=== PATIENT | female | born 1955 | race Caucasian/White ===

== ENCOUNTER 2017-05-30 17:12 | Emergency (ER) | payer MEDICARE, MEDICAID ==
[~2017-05-30] VITALS: Ht 165.1 cm; Wt 82.5 kg
[~2017-05-30 17:12] MED LIST: ACYC400T PO; ALPR0.5T9 PO; AMLO10TA PO; CANA300T PO; DOCU-28 PO; GABA600T PO; INSU100I9 SQ; IRBE300T19 PO; KETO10TA2 PO; LANTUS SUBCUT; ONDA4TAB12 PO; POTA8TAB8 PO
[2017-05-30 17:55] LABS: BASOPHILS % (AUTO) 0.2 % (0-1); EOSINOPHILS # (AUTO) 0.3 X10'3 (0-0.9); EOSINOPHILS % (AUTO) 2.5 % (0-6); HEMATOCRIT 40.2 % (35.0-45.0); HEMOGLOBIN 13.7 g/dl (12.0-16.0); LYMPHOCYTES # (AUTO) 2.1 X10'3 (1.1-4.8); LYMPHOCYTES % (AUTO) 19.9 % (21-51); MEAN CORPUSCULAR HEMOGLOBIN 29.1 PG (27.0-31.0); MEAN CORPUSCULAR VOLUME 85.6 FL (78-98); MEAN PLATELET VOLUME 9.7 FL (7.4-10.4); MONOCYTES # (AUTO) 0.7 X10'3 (0-0.9); MONOCYTES % (AUTO) 6.5 % (2-12); NEUTROPHILS # (AUTO) 7.3 X10'3 (1.8-7.7); NEUTROPHILS % (AUTO) 70.9 % (42-75); PLATELET COUNT 170 X10'3 (140-440); RED BLOOD COUNT 4.69 X10'6 (4.20-5.60); WHITE BLOOD COUNT 10.3 X10'3 (4.5-11.0)
[2017-05-30 18:00] LABS: CLARITY,URINE CLEAR (Clear); COLOR,URINE YELLOW (Yellow); GLUCOSE, URINE >=1000 mg/dl (Neg); KETONES,URINE NEGATIVE (Neg); LEUKOCYTE ESTERASE ,URINE NEGATIVE (Neg); NITRITES, URINE NEGATIVE (Neg); OCCULT BLOOD,URINE TRACE-INTACT (Neg); PH,URINE 5.5 (4.8-8.0); PROTEIN,URINE TRACE mg/dl (Neg); UROBILINOGEN,URINE 0.2 E.U/dL (0.2-1.0)
[2017-05-30 18:01] LABS: UA COLLECTION TYPE CLN CATCH MIDSTREAM
[2017-05-30 18:08] LABS: BACTERIA,URINE 1+ /HPF (Neg); SQUAMOUS EPITHELIAL CELL,UR MODERATE /LPF (FEW)
[2017-05-30 18:09] LABS: RBC,URINE 0-2 /HPF (0-2); WBC,URINE 0-4 /HPF (0-4); YEAST FEW /HPF (NEGATIVE)
[2017-05-30 18:10] LABS: ALANINE AMINOTRANSFERASE 30 U/L (12-78); ALBUMIN 3.6 G/DL (3.4-5.0); ALBUMIN/GLOBULIN RATIO 0.9 (1.1-1.5); ALKALINE PHOSPHATASE 115 IU/L (46-116); ANION GAP 9 (8-16); ASPARTATE AMINO TRANSFERASE 21 U/L (10-37); BILIRUBIN,TOTAL 0.4 MG/DL (0.1-1.0); BLOOD UREA NITROGEN 15 MG/DL (7-18); CALCIUM 8.8 MG/DL (8.5-10.1); CHLORIDE 102 MMOL/L (99-107); CREATININE 0.88 MG/DL (0.40-0.90); GLUCOSE 383 MG/DL (70-104); POTASSIUM 3.9 MMOL/L (3.5-5.1); SODIUM 138 MMOL/L (135-145); TOTAL CARBON DIOXIDE 26.9 MMOL/L (24-32); TOTAL PROTEIN 7.6 G/DL (6.4-8.2); eGFR 65 ML/MIN
[2017-05-30 18:41] LABS: LIPASE < 50 U/L (73-393)
[2017-05-30] MEDS ORDERED: ondansetron 4mg rapidly disintigrating tab PO ONE (20:05)
[2017-05-30] MEDS ORDERED: ketorolac trometh inj. 60 MG/2 ML VIAL IM ONE (20:05)
[2017-05-30 21:00] VITALS: BP 128/88
[2017-05-30] MEDS ORDERED: ciprofloxacin 250mg tablet PO ONE (21:25)
[2017-05-30] MEDS ORDERED: metroNIDAZOLE 500mg tablet PO ONE (21:25)
[2017-05-30] MEDS ORDERED: METR500T4 PO (21:26)
[2017-05-30] MEDS ORDERED: ONDA8TAB9 PO (21:26)
[2017-05-30] MEDS ORDERED: HYDR-3965 PO (21:26)
[2017-05-30] MEDS ORDERED: CIPR-259 PO (21:26)
== END 2017-05-30 21:59 | disposition home or self-care (01) ==
LOC: ER 17:13
DX: K57.92 Diverticulitis of intestine, part unspecified, without perforation or abscess without bleeding (principal); I25.10 Atherosclerotic heart disease of native coronary artery without angina pectoris; I10 Essential (primary) hypertension; E11.9 Type 2 diabetes mellitus without complications; Z90.49 Acquired absence of other specified parts of digestive tract; Z90.710 Acquired absence of both cervix and uterus; Z56.0 Unemployment, unspecified; Z88.5 Allergy status to narcotic agent; Z79.4 Long term (current) use of insulin; Z79.899 Other long term (current) drug therapy
CPT/HCPCS: 36415; 71045; 74176; 80053; 81001; 82948; 83690; 85025; 85610; 96372; 99285; J1885; J3490

== ENCOUNTER 2017-06-08 16:22 | Inpatient (IN) | payer MEDICARE, MEDICAID ==
[~2017-06-08] VITALS: Ht 165.1 cm; Wt 81.3 kg
[~2017-06-08 16:22] MED LIST changes: +CIPR-259 PO; +HYDR-3965 PO; +METR500T4 PO; +ONDA8TAB9 PO; +etomidate 2mg/ml inj. ONE
[2017-06-08 17:24] LABS: BASOPHILS % (AUTO) 0.4 % (0-1); EOSINOPHILS # (AUTO) 0.2 X10'3 (0-0.9); EOSINOPHILS % (AUTO) 2.1 % (0-6); HEMATOCRIT 40.5 % (35.0-45.0); HEMOGLOBIN 13.8 g/dl (12.0-16.0); LYMPHOCYTES # (AUTO) 2.6 X10'3 (1.1-4.8); LYMPHOCYTES % (AUTO) 24.6 % (21-51); MEAN CORPUSCULAR HEMOGLOBIN 28.8 PG (27.0-31.0); MEAN CORPUSCULAR HGB CONC 34.1 % (33.0-36.5); MEAN CORPUSCULAR VOLUME 84.4 FL (78-98); MEAN PLATELET VOLUME 9.7 FL (7.4-10.4); MONOCYTES # (AUTO) 0.8 X10'3 (0-0.9); MONOCYTES % (AUTO) 7.9 % (2-12); NEUTROPHILS # (AUTO) 6.9 X10'3 (1.8-7.7); PLATELET COUNT 186 X10'3 (140-440); RED BLOOD COUNT 4.79 X10'6 (4.20-5.60); RED CELL DISTRIBUTION WIDTH 14.4 % (11.5-14.5); WHITE BLOOD COUNT 10.6 X10'3 (4.5-11.0)
[2017-06-08 17:46] LABS: ALANINE AMINOTRANSFERASE 36 U/L (12-78); ALBUMIN 3.7 G/DL (3.4-5.0); ALBUMIN/GLOBULIN RATIO 0.9 (1.1-1.5); ALKALINE PHOSPHATASE 103 IU/L (46-116); ANION GAP 9 (8-16); ASPARTATE AMINO TRANSFERASE 22 U/L (10-37); BILIRUBIN,TOTAL 0.6 MG/DL (0.1-1.0); BLOOD UREA NITROGEN 14 MG/DL (7-18); BUN/CREATININE RATIO 18.2 (6.6-38.0); CALCIUM 8.8 MG/DL (8.5-10.1); CHLORIDE 101 MMOL/L (99-107); CREATININE 0.77 MG/DL (0.40-0.90); ETHANOL < 0.010 GM/DL (0.0-0.010); GLUCOSE 351 MG/DL (70-104); MAGNESIUM 1.9 MG/DL (1.5-2.4); POTASSIUM 4.2 MMOL/L (3.5-5.1); SODIUM 138 MMOL/L (135-145); TOTAL CARBON DIOXIDE 28.1 MMOL/L (24-32); TOTAL PROTEIN 7.8 G/DL (6.4-8.2); eGFR 76 ML/MIN
[2017-06-08] MEDS ORDERED: aspirin 81mg tab.chew PO ONE (18:25)
[2017-06-08] MEDS ORDERED: mag hydrox/Alum hydrox/simeth 30ml oral suspension PO PRN (19:25)
[2017-06-08] MEDS: normal saline 1000ml 1,000 ML IV SCH (19:52)
[2017-06-08] MEDS ORDERED: losartan 50mg tablet PO SCH (21:00)
[2017-06-08] MEDS: potassium chloride 8mEq ER tablet PO SCH (21:00)
[2017-06-08] MEDS ORDERED: GABA600T2 PO ×2 (21:02)
[2017-06-08] MEDS ORDERED: ACYC400T PO (21:02)
[2017-06-08] MEDS ORDERED: DEXL60CA3 PO (21:03)
[2017-06-08] MEDS: docusate sod 100mg capsule PO SCH (21:23)
[2017-06-08] MEDS: ALPRAZolam 0.5mg tablet PO SCH (21:23)
[2017-06-08] MEDS: gabapentin 300mg capsule PO SCH (21:24)
[2017-06-08] MEDS: ciprofloxacin 500MG tablet PO SCH (21:25)
[2017-06-08] MEDS: heparin, porcine 5000 units/ml vial SQ SCH (21:27)
[2017-06-08] MEDS: insulin glargine (Lantus) pen - multi-dose SQ SCH (22:40)
[2017-06-08] MEDS: metroNIDAZOLE 500mg tablet PO SCH (23:47)
[2017-06-09 00:28] LABS: CLARITY,URINE CLEAR (Clear); COLOR,URINE YELLOW (Yellow); GLUCOSE, URINE >=1000 mg/dl (Neg); KETONES,URINE NEGATIVE (Neg); LEUKOCYTE ESTERASE ,URINE NEGATIVE (Neg); NITRITES, URINE NEGATIVE (Neg); OCCULT BLOOD,URINE NEGATIVE (Neg); PROTEIN,URINE NEGATIVE (Neg); UROBILINOGEN,URINE 0.2 E.U/dL (0.2-1.0)
[2017-06-09 00:29] LABS: UA COLLECTION TYPE CLN CATCH MIDSTREAM
[2017-06-09 00:34] LABS: URINE AMPHETAMINE SCREEN NEGATIVE (Neg); URINE BARBITUATE SCREEN NEGATIVE (Neg); URINE BENZODIAZEPINES SCREEN NEGATIVE (Neg); URINE CANNABINOID SCREEN NEGATIVE (Neg); URINE COCAINE SCREEN NEGATIVE (Neg); URINE METHADONE SCREEN NEGATIVE (Neg); URINE OPIATE SCREEN NEGATIVE (Neg); URINE PHENCYCLIDINE SCREEN NEGATIVE (Neg)
[2017-06-09 00:41] LABS: WBC,URINE 0-4 /HPF (0-4)
[2017-06-09 00:42] LABS: BACTERIA,URINE NONE SEEN /HPF (Neg); RBC,URINE NONE SEEN /HPF (0-2); SQUAMOUS EPITHELIAL CELL,UR FEW /LPF (FEW); YEAST FEW /HPF (NEGATIVE)
[2017-06-09 04:41] LABS: BASOPHILS % (AUTO) 0.5 % (0-1); EOSINOPHILS # (AUTO) 0.3 X10'3 (0-0.9); EOSINOPHILS % (AUTO) 2.9 % (0-6); HEMATOCRIT 37.2 % (35.0-45.0); HEMOGLOBIN 12.9 g/dl (12.0-16.0); LYMPHOCYTES # (AUTO) 3.3 X10'3 (1.1-4.8); LYMPHOCYTES % (AUTO) 35.5 % (21-51); MEAN CORPUSCULAR HEMOGLOBIN 29.2 PG (27.0-31.0); MEAN CORPUSCULAR HGB CONC 34.7 % (33.0-36.5); MEAN CORPUSCULAR VOLUME 84.1 FL (78-98); MEAN PLATELET VOLUME 9.4 FL (7.4-10.4); MONOCYTES # (AUTO) 0.7 X10'3 (0-0.9); MONOCYTES % (AUTO) 7.7 % (2-12); NEUTROPHILS # (AUTO) 4.9 X10'3 (1.8-7.7); NEUTROPHILS % (AUTO) 53.4 % (42-75); PLATELET COUNT 156 X10'3 (140-440); RED BLOOD COUNT 4.42 X10'6 (4.20-5.60); RED CELL DISTRIBUTION WIDTH 14.6 % (11.5-14.5); WHITE BLOOD COUNT 9.2 X10'3 (4.5-11.0)
[2017-06-09 04:59] LABS: ALANINE AMINOTRANSFERASE 30 U/L (12-78); ALBUMIN 3.2 G/DL (3.4-5.0); ALBUMIN/GLOBULIN RATIO 0.8 (1.1-1.5); ALKALINE PHOSPHATASE 94 IU/L (46-116); ANION GAP 6 (8-16); ASPARTATE AMINO TRANSFERASE 23 U/L (10-37); BILIRUBIN,TOTAL 0.5 MG/DL (0.1-1.0); BLOOD UREA NITROGEN 11 MG/DL (7-18); BUN/CREATININE RATIO 17.5 (6.6-38.0); CALCIUM 8.7 MG/DL (8.5-10.1); CHLORIDE 105 MMOL/L (99-107); CREATININE 0.63 MG/DL (0.40-0.90); GLUCOSE 232 MG/DL (70-104); POTASSIUM 3.9 MMOL/L (3.5-5.1); SODIUM 141 MMOL/L (135-145); TOTAL CARBON DIOXIDE 30.5 MMOL/L (24-32); TOTAL PROTEIN 7.1 G/DL (6.4-8.2); eGFR > 90 ML/MIN
[2017-06-09] MEDS ORDERED: nitroGLYCERIN 1gm ointment UD TP PRN (05:15)
[2017-06-09] MEDS ORDERED: HYDROmorphone 2mg/ml vial IV PRN (05:15)
[2017-06-09] MEDS: HYDROcodone/acetaminophen 5mg/325mg tablet PO PRN ×2 (05:26→13:44)
[2017-06-09] MEDS: ondansetron/PF 4mg/2ml inj IV PRN ×2 (05:30→20:48)
[2017-06-09] MEDS ORDERED: amLODIPine 5mg tablet PO SCH (08:00)
[2017-06-09] MEDS: docusate sod 100mg capsule PO SCH ×2 (08:00→20:48)
[2017-06-09 08:48] LABS: HEMOGLOBIN A1C 10.6 % (4.5-6.2)
[2017-06-09] MEDS ORDERED: glucagon, human recombinant 1mg kit SUBCUT PRN (08:50)
[2017-06-09] MEDS ORDERED: dextrose ORAL solution 15 GM/59 ML bottle PO PRN ×2 (08:50)
[2017-06-09] MEDS ORDERED: MESSAGE TO PHARMACY PO ONE (08:50)
[2017-06-09] MEDS ORDERED: dextrose 50%-water 50ml dispensing syringe IV PRN ×2 (08:50)
[2017-06-09] MEDS: gabapentin 300mg capsule PO SCH ×2 (09:30→20:47)
[2017-06-09] MEDS: ciprofloxacin 500MG tablet PO SCH (09:30)
[2017-06-09] MEDS: normal saline 1000ml 1,000 ML IV SCH ×2 (09:30→15:25)
[2017-06-09] MEDS: metroNIDAZOLE 500mg tablet PO SCH ×2 (09:30→16:29)
[2017-06-09] MEDS: heparin, porcine 5000 units/ml vial SQ SCH ×2 (09:32→20:49)
[2017-06-09] MEDS ORDERED: ketorolac tromethamine 15mg/ml inj. IV ONE (09:50)
[2017-06-09] MEDS: insulin Lispro (HumaLOG) vial - multi-dose SQ SCH ×2 (14:06→19:53)
[2017-06-09] MEDS ORDERED: aminophylline 250mg/10ml inj. IV PRN (15:00)
[2017-06-09] MEDS ORDERED: metoprolol tartrate 1mg/ml inj IV PRN (15:00)
[2017-06-09] MEDS ORDERED: nitroGLYCERIN 0.4mg SUBLingual tab SL PRN (15:00)
[2017-06-09] MEDS ORDERED: regadenoson 0.4mg/5ml syringe IV ONE (15:00)
[2017-06-09 17:00] VITALS: BP 104/59
[2017-06-09] MEDS ORDERED: HYDROmorphone inj. 0.5 MG/0.5 ML DISP.SYRIN IV PRN (18:06)
[2017-06-09 19:00] VITALS: BP 123/69
[2017-06-09 20:00] VITALS: BP 104/59
[2017-06-09] MEDS: potassium chloride 8mEq ER tablet PO SCH (20:47)
[2017-06-09] MEDS: losartan 50mg tablet PO SCH (20:48)
[2017-06-09] MEDS: ALPRAZolam 0.5mg tablet PO SCH (20:48)
[2017-06-09] MEDS: ciprofloxacin 250mg tablet PO SCH (20:48)
[2017-06-09] MEDS: lactobacillus rhamnosus 10,000 MMU CELLS/CAPSULE PO SCH (20:49)
[2017-06-09] MEDS ORDERED: insulin glargine (Lantus) pen - multi-dose SQ SCH (21:00)
[2017-06-09] MEDS: insulin glargine (Lantus) pen - multi-dose SQ SCH (21:56)
[2017-06-09 22:20] VITALS: BP 104/59
[2017-06-09 23:00] VITALS: BP 122/71
[2017-06-10] VITALS (20 sets, daily range): BP systolic 105–146; BP diastolic 54–81
[2017-06-10] MEDS: normal saline 1000ml 1,000 ML IV SCH ×3 (01:47→21:47)
[2017-06-10] MEDS ORDERED: regadenoson 0.4mg/5ml syringe IV ONE ×2 (06:20→09:15)
[2017-06-10 06:38] LABS: BASOPHILS # (AUTO) 0.1 X10'3 (0-0.2); BASOPHILS % (AUTO) 0.8 % (0-1); EOSINOPHILS # (AUTO) 0.2 X10'3 (0-0.9); EOSINOPHILS % (AUTO) 2.5 % (0-6); HEMATOCRIT 34.5 % (35.0-45.0); HEMOGLOBIN 12.1 g/dl (12.0-16.0); LYMPHOCYTES # (AUTO) 1.9 X10'3 (1.1-4.8); LYMPHOCYTES % (AUTO) 22.9 % (21-51); MEAN CORPUSCULAR HEMOGLOBIN 29.6 PG (27.0-31.0); MEAN CORPUSCULAR HGB CONC 35.2 % (33.0-36.5); MEAN PLATELET VOLUME 9.7 FL (7.4-10.4); MONOCYTES # (AUTO) 0.7 X10'3 (0-0.9); MONOCYTES % (AUTO) 8.4 % (2-12); NEUTROPHILS # (AUTO) 5.5 X10'3 (1.8-7.7); NEUTROPHILS % (AUTO) 65.4 % (42-75); PLATELET COUNT 137 X10'3 (140-440); RED BLOOD COUNT 4.11 X10'6 (4.20-5.60); RED CELL DISTRIBUTION WIDTH 14.6 % (11.5-14.5); WHITE BLOOD COUNT 8.4 X10'3 (4.5-11.0)
[2017-06-10 06:58] LABS: ALANINE AMINOTRANSFERASE 112 U/L (12-78); ALBUMIN 2.9 G/DL (3.4-5.0); ALBUMIN/GLOBULIN RATIO 0.8 (1.1-1.5); ALKALINE PHOSPHATASE 126 IU/L (46-116); ANION GAP 8 (8-16); ASPARTATE AMINO TRANSFERASE 137 U/L (10-37); BILIRUBIN,TOTAL 0.4 MG/DL (0.1-1.0); BLOOD UREA NITROGEN 17 MG/DL (7-18); BUN/CREATININE RATIO 25.8 (6.6-38.0); CALCIUM 8.3 MG/DL (8.5-10.1); CHLORIDE 104 MMOL/L (99-107); CREATININE 0.66 MG/DL (0.40-0.90); GLUCOSE 296 MG/DL (70-104); POTASSIUM 4.3 MMOL/L (3.5-5.1); SODIUM 138 MMOL/L (135-145); TOTAL CARBON DIOXIDE 26.4 MMOL/L (24-32); TOTAL PROTEIN 6.5 G/DL (6.4-8.2); eGFR > 90 ML/MIN
[2017-06-10] MEDS ORDERED: aminophylline inj. 10 ML IV ONE (09:15)
[2017-06-10] MEDS ORDERED: magnesium 4gm in 100ml NS 100 ML IV PRN (10:45)
[2017-06-10] MEDS ORDERED: magnesium Cl slow-release 64mg tablet PO PRN (10:45)
[2017-06-10] MEDS ORDERED: potassium Cl 40MEQ/NS 500ml 500 ML IV PRN ×2 (10:45)
[2017-06-10] MEDS ORDERED: magnesium 2GM in 50ml NS 50 ML IV PRN (10:45)
[2017-06-10] MEDS ORDERED: potassium Cl 20 mEq SR tablet PO PRN ×2 (10:45)
[2017-06-10] MEDS: carVEDilol 3.125mg tablet PO SCH ×2 (13:51→20:00)
[2017-06-10] MEDS: gabapentin 300mg capsule PO SCH ×2 (13:51→20:00)
[2017-06-10] MEDS: ciprofloxacin 250mg tablet PO SCH ×2 (13:51→20:00)
[2017-06-10] MEDS: metroNIDAZOLE 500mg tablet PO SCH ×4 (13:51→23:18)
[2017-06-10] MEDS: lactobacillus rhamnosus 10,000 MMU CELLS/CAPSULE PO SCH ×2 (13:51→20:00)
[2017-06-10] MEDS: docusate sod 100mg capsule PO SCH ×2 (13:51→20:00)
[2017-06-10] MEDS: heparin, porcine 5000 units/ml vial SQ SCH ×2 (13:52→20:00)
[2017-06-10] MEDS: insulin Lispro (HumaLOG) vial - multi-dose SQ SCH ×2 (13:57→18:17)
[2017-06-10] MEDS: ondansetron/PF 4mg/2ml inj IV PRN (16:00)
[2017-06-10] MEDS: HYDROcodone/acetaminophen 5mg/325mg tablet PO PRN (16:00)
[2017-06-10] MEDS: insulin glargine (Lantus) pen - multi-dose SQ SCH (20:00)
[2017-06-10] MEDS: losartan 50mg tablet PO SCH (21:03)
[2017-06-10] MEDS: ALPRAZolam 0.5mg tablet PO SCH (21:03)
[2017-06-10] MEDS: potassium chloride 8mEq ER tablet PO SCH (21:05)
[2017-06-11] VITALS (7 sets, daily range): BP systolic 105–147; BP diastolic 53–82
[2017-06-11] MEDS: HYDROcodone/acetaminophen 5mg/325mg tablet PO PRN ×2 (05:15→07:08)
[2017-06-11 06:14] LABS: BASOPHILS # (AUTO) 0.1 X10'3 (0-0.2); BASOPHILS % (AUTO) 0.8 % (0-1); EOSINOPHILS # (AUTO) 0.2 X10'3 (0-0.9); EOSINOPHILS % (AUTO) 3.3 % (0-6); HEMATOCRIT 34.7 % (35.0-45.0); LYMPHOCYTES # (AUTO) 2.7 X10'3 (1.1-4.8); LYMPHOCYTES % (AUTO) 36.2 % (21-51); MEAN CORPUSCULAR HEMOGLOBIN 29.4 PG (27.0-31.0); MEAN CORPUSCULAR HGB CONC 34.6 % (33.0-36.5); MEAN CORPUSCULAR VOLUME 84.9 FL (78-98); MEAN PLATELET VOLUME 10.4 FL (7.4-10.4); MONOCYTES # (AUTO) 0.7 X10'3 (0-0.9); MONOCYTES % (AUTO) 9.5 % (2-12); NEUTROPHILS # (AUTO) 3.8 X10'3 (1.8-7.7); NEUTROPHILS % (AUTO) 50.2 % (42-75); PLATELET COUNT 136 X10'3 (140-440); RED BLOOD COUNT 4.08 X10'6 (4.20-5.60); RED CELL DISTRIBUTION WIDTH 14.7 % (11.5-14.5); WHITE BLOOD COUNT 7.5 X10'3 (4.5-11.0)
[2017-06-11 06:55] LABS: ALANINE AMINOTRANSFERASE 73 U/L (12-78); ALBUMIN 2.9 G/DL (3.4-5.0); ALBUMIN/GLOBULIN RATIO 0.8 (1.1-1.5); ALKALINE PHOSPHATASE 115 IU/L (46-116); ANION GAP 11 (8-16); ASPARTATE AMINO TRANSFERASE 44 U/L (10-37); BILIRUBIN,TOTAL 0.3 MG/DL (0.1-1.0); BLOOD UREA NITROGEN 16 MG/DL (7-18); BUN/CREATININE RATIO 23.9 (6.6-38.0); CALCIUM 8.3 MG/DL (8.5-10.1); CHLORIDE 104 MMOL/L (99-107); CREATININE 0.67 MG/DL (0.40-0.90); GLUCOSE 347 MG/DL (70-104); POTASSIUM 3.9 MMOL/L (3.5-5.1); SODIUM 140 MMOL/L (135-145); TOTAL CARBON DIOXIDE 25.1 MMOL/L (24-32); TOTAL PROTEIN 6.6 G/DL (6.4-8.2); eGFR 89 ML/MIN
[2017-06-11] MEDS: normal saline 1000ml 1,000 ML IV SCH ×2 (07:08→17:25)
[2017-06-11] MEDS: carVEDilol 3.125mg tablet PO SCH ×2 (07:49→21:21)
[2017-06-11] MEDS: gabapentin 300mg capsule PO SCH ×2 (07:49→21:27)
[2017-06-11] MEDS: metroNIDAZOLE 500mg tablet PO SCH ×3 (07:49→23:35)
[2017-06-11] MEDS: lactobacillus rhamnosus 10,000 MMU CELLS/CAPSULE PO SCH ×2 (07:50→21:20)
[2017-06-11] MEDS: ciprofloxacin 250mg tablet PO SCH ×2 (07:50→21:19)
[2017-06-11] MEDS: docusate sod 100mg capsule PO SCH ×2 (07:50→21:19)
[2017-06-11] MEDS: heparin, porcine 5000 units/ml vial SQ SCH ×2 (07:52→21:19)
[2017-06-11] MEDS: insulin glargine (Lantus) pen - multi-dose SQ SCH ×2 (08:28→20:00)
[2017-06-11] MEDS: magnesium hydroxide 30ml (MOM) UD suspension PO PRN (12:36)
[2017-06-11] MEDS: insulin Lispro (HumaLOG) vial - multi-dose SQ SCH ×2 (13:11→19:00)
[2017-06-11] MEDS: potassium chloride 8mEq ER tablet PO SCH (21:20)
[2017-06-11] MEDS: ALPRAZolam 0.5mg tablet PO SCH (21:20)
[2017-06-11] MEDS: losartan 50mg tablet PO SCH (21:21)
[2017-06-12] VITALS (15 sets, daily range): BP systolic 126–170; BP diastolic 60–82
[2017-06-12] MEDS: normal saline 1000ml 1,000 ML IV SCH ×3 (03:25→23:55)
[2017-06-12] MEDS: traMADol 50MG tablet PO PRN (03:28)
[2017-06-12 05:47] LABS: BASOPHILS # (AUTO) 0.1 X10'3 (0-0.2); BASOPHILS % (AUTO) 0.6 % (0-1); EOSINOPHILS # (AUTO) 0.2 X10'3 (0-0.9); EOSINOPHILS % (AUTO) 2.4 % (0-6); HEMOGLOBIN 12.5 g/dl (12.0-16.0); LYMPHOCYTES # (AUTO) 2.4 X10'3 (1.1-4.8); MEAN CORPUSCULAR HEMOGLOBIN 29.7 PG (27.0-31.0); MEAN CORPUSCULAR HGB CONC 34.6 % (33.0-36.5); MEAN CORPUSCULAR VOLUME 85.8 FL (78-98); MEAN PLATELET VOLUME 10.1 FL (7.4-10.4); MONOCYTES # (AUTO) 0.8 X10'3 (0-0.9); MONOCYTES % (AUTO) 8.2 % (2-12); NEUTROPHILS # (AUTO) 6.2 X10'3 (1.8-7.7); NEUTROPHILS % (AUTO) 63.8 % (42-75); PLATELET COUNT 152 X10'3 (140-440); RED CELL DISTRIBUTION WIDTH 14.4 % (11.5-14.5); WHITE BLOOD COUNT 9.8 X10'3 (4.5-11.0)
[2017-06-12 06:01] LABS: ALANINE AMINOTRANSFERASE 70 U/L (12-78); ALBUMIN 3.2 G/DL (3.4-5.0); ALBUMIN/GLOBULIN RATIO 0.9 (1.1-1.5); ALKALINE PHOSPHATASE 111 IU/L (46-116); ANION GAP 9 (8-16); ASPARTATE AMINO TRANSFERASE 40 U/L (10-37); BILIRUBIN,TOTAL 0.4 MG/DL (0.1-1.0); BLOOD UREA NITROGEN 14 MG/DL (7-18); BUN/CREATININE RATIO 23.7 (6.6-38.0); CALCIUM 8.5 MG/DL (8.5-10.1); CHLORIDE 102 MMOL/L (99-107); CREATININE 0.59 MG/DL (0.40-0.90); GLUCOSE 299 MG/DL (70-104); MAGNESIUM 2.1 MG/DL (1.5-2.4); POTASSIUM 4.2 MMOL/L (3.5-5.1); SODIUM 137 MMOL/L (135-145); TOTAL CARBON DIOXIDE 26.4 MMOL/L (24-32); TOTAL PROTEIN 6.8 G/DL (6.4-8.2); eGFR > 90 ML/MIN
[2017-06-12] MEDS: ondansetron/PF 4mg/2ml inj IV PRN ×2 (07:17→21:23)
[2017-06-12] MEDS: insulin glargine (Lantus) pen - multi-dose SQ SCH ×2 (07:39→20:00)
[2017-06-12] MEDS: ciprofloxacin 250mg tablet PO SCH (07:52)
[2017-06-12] MEDS: carVEDilol 3.125mg tablet PO SCH ×2 (07:53→19:19)
[2017-06-12] MEDS: lactobacillus rhamnosus 10,000 MMU CELLS/CAPSULE PO SCH ×2 (07:53→19:19)
[2017-06-12] MEDS: docusate sod 100mg capsule PO SCH ×2 (07:53→20:00)
[2017-06-12] MEDS: gabapentin 300mg capsule PO SCH ×2 (07:54→19:19)
[2017-06-12] MEDS: metroNIDAZOLE 500mg tablet PO SCH (07:54)
[2017-06-12] MEDS: heparin, porcine 5000 units/ml vial SQ SCH (07:54)
[2017-06-12] MEDS ORDERED: fentaNYL/PF 50MCG/1 ML 2ML syringe ONE (10:25)
[2017-06-12] MEDS ORDERED: heparin 1,000unit/ml 10ml vial 10 ML ONE (10:25)
[2017-06-12] MEDS ORDERED: LIDOcaine 1%/PF (10mg/ml) 5ml vial ONE (10:25)
[2017-06-12] MEDS ORDERED: midazolam 2 mg/2 ml injection ONE ×2 (10:25→11:36)
[2017-06-12] MEDS ORDERED: iohexol 350 MG/ML 50ML vial IV ONE (10:25)
[2017-06-12] MEDS ORDERED: nitroGLYCERIN-Tridil 50MG/D5W 250 ML IV ONE (10:25)
[2017-06-12] MEDS ORDERED: iohexol 350MG/ML 100ml bottle IV ONE ×3 (10:26→11:59)
[2017-06-12] MEDS: LORazepam 0.5 MG tablet PO PRN (10:38)
[2017-06-12] MEDS ORDERED: heparin 1,000 UNITS/NS 500ml 500 ML ONE (12:14)
[2017-06-12] MEDS ORDERED: tirofiban 5mg in NS 100mL 100 ML IV ONE (12:31)
[2017-06-12] MEDS ORDERED: clopidogrel 300mg tablet ONE (12:53)
[2017-06-12 13:21] LABS: ISTAT HGB ART 10.9 g/dl (12.0-16.0); ISTAT Hct ART 32 %PCV (35-48); ISTAT O2 SATURATION ARTERIAL 98 % (95-98); ISTAT SOURCE ART
[2017-06-12 13:21] LABS: ISTAT Hct MIX 32 %PCV (35-48); ISTAT O2 SATURATION MIX VENOUS 61 % (60-80); ISTAT SOURCE MIX
[2017-06-12] MEDS ORDERED: heparin 10,000 units/1 ML INJ IV PRN (14:00)
[2017-06-12] MEDS ORDERED: magnesium hydroxide 30ml (MOM) UD suspension PO PRN (14:00)
[2017-06-12] MEDS ORDERED: aspirin 325mg tablet PO ONE (14:00)
[2017-06-12] MEDS ORDERED: acetaminophen 325mg tablet PO PRN (14:00)
[2017-06-12] MEDS: tirofiban 5mg in NS 100mL 100 ML IV SCH ×3 (14:00→20:50)
[2017-06-12] MEDS ORDERED: proCHLORperazine 10 MG/2 ml inj IV PRN (14:00)
[2017-06-12 14:50] LABS: CHOL/HDL RATIO 4.3 (0.00-4.99); CHOLESTEROL 154 MG/DL (0-200); HDL CHOLESTEROL 36 MG/DL (35-60); LDL CHOLESTEROL 96 MG/DL (50-100); TRIGLYCERIDES 76 MG/DL (20-135)
[2017-06-12] MEDS: OXAZEpam 15mg capsule PO PRN ×2 (15:52→21:27)
[2017-06-12] MEDS: insulin Lispro (HumaLOG) vial - multi-dose SQ SCH ×2 (17:13→19:25)
[2017-06-12] MEDS: losartan 50mg tablet PO SCH (20:52)
[2017-06-12] MEDS: potassium chloride 8mEq ER tablet PO SCH (20:52)
[2017-06-12] MEDS: ALPRAZolam 0.5mg tablet PO SCH (20:52)
[2017-06-13] VITALS (27 sets, daily range): BP systolic 90–159; BP diastolic 48–72
[2017-06-13] MEDS: tirofiban 5mg in NS 100mL 100 ML IV SCH ×3 (02:00→23:25)
[2017-06-13] MEDS: traMADol 50MG tablet PO PRN ×2 (02:41→13:23)
[2017-06-13] MEDS: LORazepam 0.5 MG tablet PO PRN (03:08)
[2017-06-13 05:49] LABS: BASOPHILS % (AUTO) 0.3 % (0-1); EOSINOPHILS # (AUTO) 0.4 X10'3 (0-0.9); EOSINOPHILS % (AUTO) 2.4 % (0-6); HEMOGLOBIN 7.5 g/dl (12.0-16.0); LYMPHOCYTES # (AUTO) 1.4 X10'3 (1.1-4.8); LYMPHOCYTES % (AUTO) 8.6 % (21-51); MEAN CORPUSCULAR HEMOGLOBIN 29.9 PG (27.0-31.0); MEAN CORPUSCULAR HGB CONC 35.3 % (33.0-36.5); MEAN CORPUSCULAR VOLUME 84.8 FL (78-98); MEAN PLATELET VOLUME 10.1 FL (7.4-10.4); MONOCYTES # (AUTO) 1.5 X10'3 (0-0.9); MONOCYTES % (AUTO) 9.1 % (2-12); NEUTROPHILS # (AUTO) 13.4 X10'3 (1.8-7.7); NEUTROPHILS % (AUTO) 79.6 % (42-75); PLATELET COUNT 172 X10'3 (140-440); RED BLOOD COUNT 2.51 X10'6 (4.20-5.60); RED CELL DISTRIBUTION WIDTH 14.7 % (11.5-14.5); WHITE BLOOD COUNT 16.8 X10'3 (4.5-11.0)
[2017-06-13 05:56] LABS: HEMATOCRIT 21.3 % (35.0-45.0)
[2017-06-13 06:13] LABS: ALANINE AMINOTRANSFERASE 74 U/L (12-78); ALBUMIN 2.8 G/DL (3.4-5.0); ALBUMIN/GLOBULIN RATIO 0.7 (1.1-1.5); ALKALINE PHOSPHATASE 130 IU/L (46-116); ANION GAP 7 (8-16); ASPARTATE AMINO TRANSFERASE 57 U/L (10-37); BILIRUBIN,TOTAL 0.5 MG/DL (0.1-1.0); BLOOD UREA NITROGEN 12 MG/DL (7-18); BUN/CREATININE RATIO 21.4 (6.6-38.0); CALCIUM 7.8 MG/DL (8.5-10.1); CHLORIDE 105 MMOL/L (99-107); CHOL/HDL RATIO 4.1 (0.00-4.99); CHOLESTEROL 154 MG/DL (0-200); CREATININE 0.56 MG/DL (0.40-0.90); GLUCOSE 120 MG/DL (70-104); HDL CHOLESTEROL 38 MG/DL (35-60); LDL CHOLESTEROL 95 MG/DL (50-100); MAGNESIUM 1.9 MG/DL (1.5-2.4); POTASSIUM 4.1 MMOL/L (3.5-5.1); SODIUM 139 MMOL/L (135-145); TOTAL CARBON DIOXIDE 26.9 MMOL/L (24-32); TOTAL PROTEIN 6.6 G/DL (6.4-8.2); TRIGLYCERIDES 99 MG/DL (20-135); eGFR > 90 ML/MIN
[2017-06-13] MEDS ORDERED: fentaNYL/PF 50MCG/1 ML 2ML syringe ONE (06:14)
[2017-06-13] MEDS ORDERED: iohexol 350 MG/1 ML 200ml bottle ONE (06:14)
[2017-06-13] MEDS ORDERED: nitroGLYCERIN-Tridil 50MG/D5W 250 ML IV ONE (06:14)
[2017-06-13] MEDS ORDERED: midazolam 2 mg/2 ml injection ONE (06:14)
[2017-06-13] MEDS ORDERED: heparin 1,000unit/ml 10ml vial 10 ML ONE (06:14)
[2017-06-13] MEDS ORDERED: LIDOcaine 1%/PF (10mg/ml) 5ml vial ONE (06:14)
[2017-06-13 06:57] LABS: HEMATOCRIT 31.3 % (35.0-45.0); HEMOGLOBIN 10.7 g/dl (12.0-16.0); MEAN CORPUSCULAR HEMOGLOBIN 29.4 PG (27.0-31.0); MEAN CORPUSCULAR HGB CONC 34.3 % (33.0-36.5); MEAN CORPUSCULAR VOLUME 85.7 FL (78-98); MEAN PLATELET VOLUME 10.4 FL (7.4-10.4); PLATELET COUNT 133 X10'3 (140-440); RED BLOOD COUNT 3.65 X10'6 (4.20-5.60); RED CELL DISTRIBUTION WIDTH 14.8 % (11.5-14.5); WHITE BLOOD COUNT 11.2 X10'3 (4.5-11.0)
[2017-06-13] MEDS ORDERED: IOHEXOL 350 MG/ML 150 ML injection IV ONE (07:53)
[2017-06-13] MEDS: docusate sod 100mg capsule PO SCH ×2 (08:00→19:16)
[2017-06-13] MEDS ORDERED: clopidogrel 300mg tablet ONE (08:02)
[2017-06-13] MEDS: ondansetron/PF 4mg/2ml inj IV PRN (09:20)
[2017-06-13] MEDS: clopidogrel 75mg tablet PO SCH (10:53)
[2017-06-13] MEDS: lactobacillus rhamnosus 10,000 MMU CELLS/CAPSULE PO SCH ×2 (10:54→19:13)
[2017-06-13] MEDS: aspirin 325mg tablet PO SCH (10:54)
[2017-06-13] MEDS: carVEDilol 3.125mg tablet PO SCH ×2 (10:54→20:00)
[2017-06-13] MEDS: gabapentin 300mg capsule PO SCH ×2 (10:55→19:13)
[2017-06-13] MEDS: insulin glargine (Lantus) pen - multi-dose SQ SCH ×2 (11:09→20:00)
[2017-06-13] MEDS: OXAZEpam 15mg capsule PO PRN (13:23)
[2017-06-13] MEDS: insulin Lispro (HumaLOG) vial - multi-dose SQ SCH ×2 (14:05→19:07)
[2017-06-13 14:26] LABS: ISTAT HGB ART 10.5 g/dl (12.0-16.0); ISTAT Hct ART 31 %PCV (35-48); ISTAT O2 SATURATION ARTERIAL 94 % (95-98); ISTAT SOURCE ART
[2017-06-13] MEDS: acetaminophen 325mg tablet PO PRN (17:28)
[2017-06-13] MEDS: losartan 50mg tablet PO SCH (20:25)
[2017-06-13] MEDS: potassium chloride 8mEq ER tablet PO SCH (20:52)
[2017-06-13] MEDS: atorvastatin 20mg tablet PO SCH (20:52)
[2017-06-13] MEDS: ALPRAZolam 0.5mg tablet PO SCH (21:00)
[2017-06-14] VITALS (19 sets, daily range): BP systolic 82–135; BP diastolic 43–64
[2017-06-14 03:15] LABS: BASOPHILS # (AUTO) 0.1 X10'3 (0-0.2); BASOPHILS % (AUTO) 1.5 % (0-1); EOSINOPHILS % (AUTO) 0.3 % (0-6); HEMATOCRIT 26.2 % (35.0-45.0); HEMOGLOBIN 9.2 g/dl (12.0-16.0); LYMPHOCYTES % (AUTO) 10.3 % (21-51); MEAN CORPUSCULAR HEMOGLOBIN 29.9 PG (27.0-31.0); MEAN CORPUSCULAR HGB CONC 35.1 % (33.0-36.5); MEAN CORPUSCULAR VOLUME 85.1 FL (78-98); MEAN PLATELET VOLUME 10.4 FL (7.4-10.4); MONOCYTES # (AUTO) 1.7 X10'3 (0-0.9); MONOCYTES % (AUTO) 17.9 % (2-12); NEUTROPHILS # (AUTO) 6.9 X10'3 (1.8-7.7); PLATELET COUNT 105 X10'3 (140-440); RED BLOOD COUNT 3.08 X10'6 (4.20-5.60); RED CELL DISTRIBUTION WIDTH 14.1 % (11.5-14.5); WHITE BLOOD COUNT 9.7 X10'3 (4.5-11.0)
[2017-06-14] MEDS: normal saline 1000ml 1,000 ML IV SCH ×3 (03:39→16:10)
[2017-06-14 03:48] LABS: ALBUMIN 2.2 G/DL (3.4-5.0); ANION GAP 7 (8-16); BLOOD UREA NITROGEN 16 MG/DL (7-18); BUN/CREATININE RATIO 23.2 (6.6-38.0); CALCIUM 6.7 MG/DL (8.5-10.1); CHLORIDE 106 MMOL/L (99-107); CHOLESTEROL 114 MG/DL (0-200); CREATININE 0.69 MG/DL (0.40-0.90); GLUCOSE 167 MG/DL (70-104); HDL CHOLESTEROL 23 MG/DL (35-60); LDL CHOLESTEROL 68 MG/DL (50-100); MAGNESIUM 1.7 MG/DL (1.5-2.4); POTASSIUM 3.7 MMOL/L (3.5-5.1); SODIUM 138 MMOL/L (135-145); TOTAL CARBON DIOXIDE 24.6 MMOL/L (24-32); TRIGLYCERIDES 104 MG/DL (20-135); eGFR 86 ML/MIN
[2017-06-14] MEDS: traMADol 50MG tablet PO PRN (04:23)
[2017-06-14] MEDS: tirofiban 5mg in NS 100mL 100 ML IV SCH ×2 (06:06→10:50)
[2017-06-14 07:11] LABS: BASOPHILS # (AUTO) 0.1 X10'3 (0-0.2); BASOPHILS % (AUTO) 0.6 % (0-1); EOSINOPHILS % (AUTO) 0.2 % (0-6); HEMATOCRIT 29.6 % (35.0-45.0); HEMOGLOBIN 10.1 g/dl (12.0-16.0); LYMPHOCYTES % (AUTO) 9.8 % (21-51); MEAN CORPUSCULAR HEMOGLOBIN 29.1 PG (27.0-31.0); MEAN CORPUSCULAR HGB CONC 34.2 % (33.0-36.5); MEAN CORPUSCULAR VOLUME 85.3 FL (78-98); MEAN PLATELET VOLUME 10.2 FL (7.4-10.4); MONOCYTES # (AUTO) 1.8 X10'3 (0-0.9); MONOCYTES % (AUTO) 18.2 % (2-12); NEUTROPHILS % (AUTO) 71.2 % (42-75); PLATELET COUNT 106 X10'3 (140-440); RED BLOOD COUNT 3.47 X10'6 (4.20-5.60); RED CELL DISTRIBUTION WIDTH 14.7 % (11.5-14.5); WHITE BLOOD COUNT 9.9 X10'3 (4.5-11.0)
[2017-06-14] MEDS: docusate sod 100mg capsule PO SCH ×2 (08:00→20:49)
[2017-06-14] MEDS: carVEDilol 3.125mg tablet PO SCH ×2 (08:00→20:49)
[2017-06-14] MEDS: gabapentin 300mg capsule PO SCH ×2 (08:26→20:49)
[2017-06-14] MEDS: lactobacillus rhamnosus 10,000 MMU CELLS/CAPSULE PO SCH ×2 (08:27→20:49)
[2017-06-14] MEDS: aspirin 325mg tablet PO SCH (08:27)
[2017-06-14] MEDS: clopidogrel 75mg tablet PO SCH (08:27)
[2017-06-14] MEDS: insulin glargine (Lantus) pen - multi-dose SQ SCH ×2 (08:33→20:00)
[2017-06-14] MEDS: acetaminophen 325mg tablet PO PRN (08:38)
[2017-06-14] MEDS: insulin Lispro (HumaLOG) vial - multi-dose SQ SCH ×2 (10:11→14:23)
[2017-06-14] MEDS ORDERED: normal saline 1000ml 1,000 ML IV ONE (12:15)
[2017-06-14 14:31] LABS: CLARITY,URINE Cloudy (Clear); COLOR,URINE Dark Yellow (Yellow); GLUCOSE, URINE Negative (Neg); KETONES,URINE Trace mg/dl (Neg); LEUKOCYTE ESTERASE ,URINE Moderate (Neg); NITRITES, URINE Negative (Neg); OCCULT BLOOD,URINE Small (Neg); PROTEIN,URINE Trace mg/dl (Neg)
[2017-06-14 14:32] LABS: UA COLLECTION TYPE FOLEY CATH
[2017-06-14 15:08] LABS: SQUAMOUS EPITHELIAL CELL,UR MODERATE /LPF (FEW)
[2017-06-14 15:09] LABS: BACTERIA,URINE 2+ /HPF (Neg); HYALINE CASTS >30 /LPF (NEGATIVE); WBC CLUMPS,URINE MODERATE /HPF (NEGATIVE); WBC,URINE 50-100 /HPF (0-4)
[2017-06-14] MEDS: ondansetron/PF 4mg/2ml inj IV PRN (16:06)
[2017-06-14] MEDS: potassium chloride 8mEq ER tablet PO SCH (20:49)
[2017-06-14] MEDS: losartan 50mg tablet PO SCH (20:49)
[2017-06-14] MEDS: atorvastatin 20mg tablet PO SCH (20:50)
[2017-06-14] MEDS: ALPRAZolam 0.5mg tablet PO SCH (21:00)
[2017-06-15] VITALS (21 sets, daily range): BP systolic 69–164; BP diastolic 40–80
[2017-06-15 00:01] LABS: ABG BASE EXCESS -4.1 mmol/L (-2.0-3.0); ABG HCO3 21.8 mmol/L (22.0-26.0); ABG OXYGEN SATURATION 84.3 % (95-98); ABG PCO2 (T) 45.4 mmHg (32.0-45.0); ABG PH (T) 7.304 (7.350-7.450); ABG PO2 (T) 55.3 mmHg (83-108); ALLEN'S TEST Positive; FCOHb 0.3 % (0.5-1.5); FLOW 15 L/min; FMetHb 0.3 % (0.3-1.12); FO2Hb 83.8 % (94-100); PATIENT TEMPERATURE 38.2; TOTAL HEMOGLOBIN 10.7 G/dl (12.0-16.0)
[2017-06-15] MEDS: normal saline 1000ml 1,000 ML IV SCH ×2 (00:14→11:47)
[2017-06-15] MEDS ORDERED: acetaminophen 120MG suppository, rectal RC PRN ×3 (00:50→01:45)
[2017-06-15] MEDS ORDERED: azithromycin/NS 500mg/250ml 250 ML IV ONE (01:10)
[2017-06-15] MEDS ORDERED: PIPERACILLIN TAZO IV ONE (01:22)
[2017-06-15] MEDS ORDERED: piperacillin-tazo 2.25gm/50ml 50 ML IV SCH (02:00)
[2017-06-15 02:10] LABS: ABG BASE EXCESS -5.9 mmol/L (-2.0-3.0); ABG HCO3 19.7 mmol/L (22.0-26.0); ABG PCO2 (T) 43.1 mmHg (32.0-45.0); ABG PH (T) 7.289 (7.350-7.450); ABG PO2 (T) 93.3 mmHg (83-108); ALLEN'S TEST Positive; FCOHb 0.3 % (0.5-1.5); FMetHb 0.3 % (0.3-1.12); FO2Hb 94.4 % (94-100); MINUTE VOLUME 10 L/min; PATIENT TEMPERATURE 39.4; RESPIRATORY RATE 12 b/min; RESPIRATORY RATE (OBSERVED) 18 b/min; TOTAL HEMOGLOBIN 10.5 G/dl (12.0-16.0)
[2017-06-15] MEDS ORDERED: acetaminophen 650mg rectal suppository RC PRN (02:10)
[2017-06-15] MEDS ORDERED: piperacillin/tazo 3.375gm/50ml 50 ML IV ONE (02:14)
[2017-06-15] MEDS: piperacillin/tazo 3.375gm/50ml 50 ML IV SCH ×4 (02:40→19:45)
[2017-06-15] MEDS ORDERED: DOBUTamine-DoBUTrex 500mg/D5W 250 ML IV SCH (03:25)
[2017-06-15 04:06] LABS: ABG BASE EXCESS -6.5 mmol/L (-2.0-3.0); ABG HCO3 19.1 mmol/L (22.0-26.0); ABG PCO2 (T) 40.5 mmHg (32.0-45.0); ABG PH (T) 7.296 (7.350-7.450); ABG PO2 (T) 83.3 mmHg (83-108); ALLEN'S TEST Positive; MINUTE VOLUME 10 L/min; PATIENT TEMPERATURE 38.1; RESPIRATORY RATE 12 b/min; RESPIRATORY RATE (OBSERVED) 18 b/min
[2017-06-15 05:46] LABS: BASOPHILS % (AUTO) 0.2 % (0-1); EOSINOPHILS # (AUTO) 0.2 X10'3 (0-0.9); EOSINOPHILS % (AUTO) 1.5 % (0-6); HEMATOCRIT 27.2 % (35.0-45.0); HEMOGLOBIN 9.3 g/dl (12.0-16.0); LYMPHOCYTES # (AUTO) 0.7 X10'3 (1.1-4.8); LYMPHOCYTES % (AUTO) 6.1 % (21-51); MEAN CORPUSCULAR HEMOGLOBIN 29.4 PG (27.0-31.0); MEAN CORPUSCULAR HGB CONC 34.3 % (33.0-36.5); MEAN CORPUSCULAR VOLUME 85.6 FL (78-98); MEAN PLATELET VOLUME 10.8 FL (7.4-10.4); MONOCYTES # (AUTO) 1.4 X10'3 (0-0.9); MONOCYTES % (AUTO) 11.4 % (2-12); NEUTROPHILS # (AUTO) 9.7 X10'3 (1.8-7.7); NEUTROPHILS % (AUTO) 80.8 % (42-75); PLATELET COUNT 107 X10'3 (140-440); RED BLOOD COUNT 3.17 X10'6 (4.20-5.60)
[2017-06-15 06:08] LABS: ALBUMIN 2.3 G/DL (3.4-5.0); ANION GAP 10 (8-16); BLOOD UREA NITROGEN 24 MG/DL (7-18); BUN/CREATININE RATIO 22.2 (6.6-38.0); CALCIUM 7.6 MG/DL (8.5-10.1); CHLORIDE 105 MMOL/L (99-107); CREATININE 1.08 MG/DL (0.40-0.90); GLUCOSE 133 MG/DL (70-104); MAGNESIUM 2.1 MG/DL (1.5-2.4); POTASSIUM 4.4 MMOL/L (3.5-5.1); SODIUM 137 MMOL/L (135-145); TOTAL CARBON DIOXIDE 22.4 MMOL/L (24-32); eGFR 51 ML/MIN
[2017-06-15] MEDS: docusate sod 100mg capsule PO SCH ×2 (08:00→19:43)
[2017-06-15] MEDS: lactobacillus rhamnosus 10,000 MMU CELLS/CAPSULE PO SCH ×2 (08:00→19:43)
[2017-06-15] MEDS: carVEDilol 3.125mg tablet PO SCH ×2 (08:00→19:44)
[2017-06-15] MEDS: insulin glargine (Lantus) pen - multi-dose SQ SCH ×2 (08:00→20:00)
[2017-06-15] MEDS: furosemide 20 MG/2 ML vial IV SCH ×2 (08:01→19:45)
[2017-06-15] MEDS: albuterol 2.5 MG/3 ML nebule NEB PRN (08:01)
[2017-06-15] MEDS: aspirin 325mg tablet PO SCH (08:10)
[2017-06-15] MEDS: gabapentin 300mg capsule PO SCH ×2 (08:10→19:44)
[2017-06-15] MEDS: clopidogrel 75mg tablet PO SCH (08:10)
[2017-06-15 11:46] LABS: C-REACTIVE PROTEIN 2.23 MG/DL (0.0-0.5); CREATINE KINASE 123 U/L (26-192); LIPASE < 50 U/L (73-393)
[2017-06-15] MEDS: insulin Lispro (HumaLOG) vial - multi-dose SQ SCH (13:03)
[2017-06-15] MEDS: acetaminophen 325mg tablet PO PRN (16:58)
[2017-06-15 18:06] LABS: ABG HCO3 19.6 mmol/L (22.0-26.0); ABG OXYGEN SATURATION 92.2 % (95-98); ABG PCO2 (T) 34.7 mmHg (32.0-45.0); ABG PH (T) 7.369 (7.350-7.450); ABG PO2 (T) 63.7 mmHg (83-108); ALLEN'S TEST Positive; FCOHb 0.3 % (0.5-1.5); FMetHb 0.2 % (0.3-1.12); FO2Hb 91.7 % (94-100); MINUTE VOLUME 16 L/min; RESPIRATORY RATE 12 b/min; RESPIRATORY RATE (OBSERVED) 18 b/min; TOTAL HEMOGLOBIN 10.9 G/dl (12.0-16.0)
[2017-06-15] MEDS: LORazepam 0.5 MG tablet PO PRN (19:43)
[2017-06-15] MEDS: albuterol 2.5 MG/3 ML nebule IH SCH ×2 (20:41→23:00)
[2017-06-15] MEDS: losartan 50mg tablet PO SCH (21:00)
[2017-06-15] MEDS: ALPRAZolam 0.5mg tablet PO SCH (21:00)
[2017-06-15] MEDS: atorvastatin 20mg tablet PO SCH (21:22)
[2017-06-15] MEDS: potassium chloride 8mEq ER tablet PO SCH (21:22)
[2017-06-16] VITALS (26 sets, daily range): BP systolic 104–231; BP diastolic 48–101
[2017-06-16] MEDS: OXAZEpam 15mg capsule PO PRN (01:04)
[2017-06-16] MEDS: albuterol 2.5 MG/3 ML nebule NEB PRN (01:18)
[2017-06-16] MEDS: LORazepam 0.5 MG tablet PO PRN (01:47)
[2017-06-16] MEDS: piperacillin/tazo 3.375gm/50ml 50 ML IV SCH ×4 (01:48→21:44)
[2017-06-16] MEDS: albuterol 2.5 MG/3 ML nebule IH SCH ×3 (04:05→11:00)
[2017-06-16] MEDS: LORazepam 2 mg/ml vial IV PRN (05:42)
[2017-06-16] MEDS ORDERED: hydrALAZINE 20mg/ml inj. IV STA (06:15)
[2017-06-16] MEDS ORDERED: hydrALAZINE 20mg/ml inj. IV ONE ×2 (06:17→06:55)
[2017-06-16 06:20] LABS: ABG BASE EXCESS -4.8 mmol/L (-2.0-3.0); ABG HCO3 21.1 mmol/L (22.0-26.0); ABG OXYGEN SATURATION 92.8 % (95-98); ABG PCO2 (T) 40.9 mmHg (32.0-45.0); ABG PH (T) 7.326 (7.350-7.450); ABG PO2 (T) 66.5 mmHg (83-108); ALLEN'S TEST Positive; FCOHb 0.2 % (0.5-1.5); FMetHb 0.3 % (0.3-1.12); FO2Hb 92.3 % (94-100); MINUTE VOLUME 17 L/min; PATIENT TEMPERATURE 36.4; RESPIRATORY RATE 12 b/min; RESPIRATORY RATE (OBSERVED) 28 b/min; TOTAL HEMOGLOBIN 11.9 G/dl (12.0-16.0)
[2017-06-16] MEDS ORDERED: nitroGLYCERIN 1gm ointment UD TP ONE (06:55)
[2017-06-16 07:04] LABS: ALBUMIN 2.6 G/DL (3.4-5.0); ANION GAP 12 (8-16); BLOOD UREA NITROGEN 19 MG/DL (7-18); BUN/CREATININE RATIO 23.8 (6.6-38.0); CALCIUM 8.3 MG/DL (8.5-10.1); CHLORIDE 102 MMOL/L (99-107); GLUCOSE 197 MG/DL (70-104); POTASSIUM 4.1 MMOL/L (3.5-5.1); SODIUM 139 MMOL/L (135-145); eGFR 73 ML/MIN
[2017-06-16] MEDS ORDERED: MIDAZolam 5mg/ml 2ml vial IV STA (07:23)
[2017-06-16] MEDS: carVEDilol 3.125mg tablet PO SCH ×2 (08:00→20:00)
[2017-06-16] MEDS: insulin glargine (Lantus) pen - multi-dose SQ SCH ×2 (08:00→20:00)
[2017-06-16] MEDS: docusate sod 100mg capsule PO SCH ×2 (08:00→20:00)
[2017-06-16] MEDS: furosemide 20 MG/2 ML vial IV SCH (08:00)
[2017-06-16] MEDS ORDERED: FENTANYL-0.9 % NACL/PF 100 ML IV PRN (08:03)
[2017-06-16 08:13] LABS: C-REACTIVE PROTEIN 3.99 MG/DL (0.0-0.5)
[2017-06-16 08:16] LABS: TROPONIN I 0.93 NG/ML (0.0-0.05)
[2017-06-16] MEDS ORDERED: furosemide 40mg/4ml inj IV STA (08:20)
[2017-06-16 08:37] LABS: BASOPHILS % (AUTO) 0 % (0-1); EOSINOPHILS % (AUTO) 0 % (0-6); HEMOGLOBIN 10.6 g/dl (12.0-16.0); LYMPHOCYTES # (AUTO) 0.3 X10'3 (1.1-4.8); LYMPHOCYTES % (AUTO) 2.1 % (21-51); MEAN CORPUSCULAR HEMOGLOBIN 29.4 PG (27.0-31.0); MEAN CORPUSCULAR HGB CONC 34.3 % (33.0-36.5); MEAN CORPUSCULAR VOLUME 85.8 FL (78-98); MEAN PLATELET VOLUME 10.1 FL (7.4-10.4); MONOCYTES # (AUTO) 1.1 X10'3 (0-0.9); MONOCYTES % (AUTO) 7.2 % (2-12); NEUTROPHILS # (AUTO) 14.1 X10'3 (1.8-7.7); NEUTROPHILS % (AUTO) 90.7 % (42-75); PLATELET COUNT 142 X10'3 (140-440); RED BLOOD COUNT 3.61 X10'6 (4.20-5.60); RED CELL DISTRIBUTION WIDTH 15.1 % (11.5-14.5); WHITE BLOOD COUNT 15.6 X10'3 (4.5-11.0)
[2017-06-16 08:46] LABS: ABG BASE EXCESS -4.9 mmol/L (-2.0-3.0); ABG HCO3 19.7 mmol/L (22.0-26.0); ABG OXYGEN SATURATION 91.8 % (95-98); ABG PCO2 (T) 36.3 mmHg (32.0-45.0); ABG PH (T) 7.357 (7.350-7.450); ABG PO2 (T) 64.2 mmHg (83-108); FCOHb 0.3 % (0.5-1.5); FMetHb 0.1 % (0.3-1.12); FO2Hb 91.4 % (94-100); MINUTE VOLUME 15 L/min; PATIENT TEMPERATURE 37.9; PEEP 10 cm H2O; RESPIRATORY RATE 18 b/min; RESPIRATORY RATE (OBSERVED) 36 b/min; TIDAL VOLUME 450 mL; TOTAL HEMOGLOBIN 10.6 G/dl (12.0-16.0)
[2017-06-16] MEDS: midazolam 100mg in NS 100ml 100 ML IV PRN ×2 (08:47→19:27)
[2017-06-16] MEDS ORDERED: etomidate 2mg/ml inj. IV ONE (08:50)
[2017-06-16] MEDS: aspirin 325mg tablet PO SCH (09:01)
[2017-06-16] MEDS: clopidogrel 75mg tablet PO SCH (09:01)
[2017-06-16] MEDS: gabapentin 300mg capsule PO SCH ×2 (09:01→21:45)
[2017-06-16] MEDS: lactobacillus rhamnosus 10,000 MMU CELLS/CAPSULE PO SCH ×2 (09:01→22:27)
[2017-06-16] MEDS: linezolid 600mg/300ml PREMIX 300 ML IV SCH ×2 (09:12→22:27)
[2017-06-16] MEDS ORDERED: midazolam 100mg in NS 100ml 100 ML IV PRN (09:46)
[2017-06-16] MEDS: ipratropium/albuterol 3ml nebule NEB SCH ×4 (11:53→22:56)
[2017-06-16] MEDS: NORepinephrine 8mg/ 250ml NS 250 ML IV SCH (11:57)
[2017-06-16] MEDS ORDERED: NORMAL SALINE IV SCH (12:10)
[2017-06-16] MEDS ORDERED: MORPHINE SULFATE IV SCH (12:10)
[2017-06-16] MEDS: insulin Lispro (HumaLOG) vial - multi-dose SQ SCH ×2 (12:12→21:49)
[2017-06-16] MEDS: acetaminophen 325mg tablet PO PRN (16:49)
[2017-06-16 19:41] LABS: ABG BASE EXCESS 1.6 mmol/L (-2.0-3.0); ABG HCO3 25.8 mmol/L (22.0-26.0); ABG OXYGEN SATURATION 98.4 % (95-98); ABG PCO2 (T) 41.8 mmHg (32.0-45.0); ABG PH (T) 7.414 (7.350-7.450); ABG PO2 (T) 149.5 mmHg (83-108); FCOHb 0.3 % (0.5-1.5); FMetHb 0.2 % (0.3-1.12); FO2Hb 97.9 % (94-100); MINUTE VOLUME 10 L/min; PATIENT TEMPERATURE 38.6; PEEP 10 cm H2O; RESPIRATORY RATE 18 b/min; RESPIRATORY RATE (OBSERVED) 19 b/min; TIDAL VOLUME 500 mL; TOTAL HEMOGLOBIN 10.4 G/dl (12.0-16.0)
[2017-06-16 20:12] LABS: MAGNESIUM 1.8 MG/DL (1.5-2.4); POTASSIUM 3.6 MMOL/L (3.5-5.1)
[2017-06-16] MEDS: losartan 50mg tablet PO SCH ×2 (21:00→22:27)
[2017-06-16] MEDS: potassium chloride 8mEq ER tablet PO SCH (21:00)
[2017-06-16] MEDS ORDERED: magnesium 4gm in 100ml NS 100 ML IV PRN (21:20)
[2017-06-16] MEDS ORDERED: magnesium 2GM in 50ml NS 50 ML IV PRN (21:20)
[2017-06-16] MEDS: furosemide 40mg/4ml inj IV SCH (21:44)
[2017-06-16] MEDS: ALPRAZolam 0.5mg tablet PO SCH (21:45)
[2017-06-16] MEDS: atorvastatin 10mg tablet PO SCH (21:51)
[2017-06-17] VITALS (24 sets, daily range): BP systolic 11–141; BP diastolic 41–60
[2017-06-17] MEDS: acetaminophen 325mg tablet PO PRN ×3 (00:52→20:09)
[2017-06-17] MEDS: midazolam 100mg in NS 100ml 100 ML IV PRN ×5 (00:53→23:39)
[2017-06-17] MEDS: piperacillin/tazo 3.375gm/50ml 50 ML IV SCH ×4 (02:28→20:09)
[2017-06-17] MEDS: insulin Lispro (HumaLOG) vial - multi-dose SQ SCH (02:47)
[2017-06-17 03:08] LABS: BASOPHILS % (AUTO) 0.4 % (0-1); EOSINOPHILS # (AUTO) 0.1 X10'3 (0-0.9); EOSINOPHILS % (AUTO) 0.8 % (0-6); HEMATOCRIT 26.9 % (35.0-45.0); HEMOGLOBIN 9.1 g/dl (12.0-16.0); LYMPHOCYTES # (AUTO) 0.5 X10'3 (1.1-4.8); LYMPHOCYTES % (AUTO) 5.4 % (21-51); MEAN CORPUSCULAR HEMOGLOBIN 29.1 PG (27.0-31.0); MEAN CORPUSCULAR VOLUME 85.6 FL (78-98); MEAN PLATELET VOLUME 9.9 FL (7.4-10.4); MONOCYTES % (AUTO) 11.8 % (2-12); NEUTROPHILS # (AUTO) 7.2 X10'3 (1.8-7.7); NEUTROPHILS % (AUTO) 81.6 % (42-75); PLATELET COUNT 137 X10'3 (140-440); RED BLOOD COUNT 3.14 X10'6 (4.20-5.60); RED CELL DISTRIBUTION WIDTH 14.8 % (11.5-14.5); WHITE BLOOD COUNT 8.9 X10'3 (4.5-11.0)
[2017-06-17] MEDS: ipratropium/albuterol 3ml nebule NEB SCH ×6 (03:23→23:03)
[2017-06-17 03:35] LABS: ALANINE AMINOTRANSFERASE 43 U/L (12-78); ALBUMIN/GLOBULIN RATIO 0.5 (1.1-1.5); ALKALINE PHOSPHATASE 145 IU/L (46-116); ANION GAP 6 (8-16); ASPARTATE AMINO TRANSFERASE 26 U/L (10-37); BILIRUBIN,TOTAL 0.6 MG/DL (0.1-1.0); BLOOD UREA NITROGEN 20 MG/DL (7-18); BUN/CREATININE RATIO 25.6 (6.6-38.0); CALCIUM 7.6 MG/DL (8.5-10.1); CHLORIDE 103 MMOL/L (99-107); CREATININE 0.78 MG/DL (0.40-0.90); GLUCOSE 241 MG/DL (70-104); MAGNESIUM 1.7 MG/DL (1.5-2.4); POTASSIUM 3.2 MMOL/L (3.5-5.1); SODIUM 138 MMOL/L (135-145); TOTAL PROTEIN 5.9 G/DL (6.4-8.2); eGFR 75 ML/MIN
[2017-06-17] MEDS: potassium Cl 40MEQ/250ML bag 250 ML IV PRN (04:05)
[2017-06-17 04:11] LABS: ABG BASE EXCESS 2.8 mmol/L (-2.0-3.0); ABG HCO3 27.4 mmol/L (22.0-26.0); ABG OXYGEN SATURATION 95.6 % (95-98); ABG PCO2 (T) 43.8 mmHg (32.0-45.0); ABG PH (T) 7.417 (7.350-7.450); ABG PO2 (T) 86.3 mmHg (83-108); FCOHb 0.3 % (0.5-1.5); FO2Hb 95.3 % (94-100); MINUTE VOLUME 10 L/min; PATIENT TEMPERATURE 37.8; PEEP 10 cm H2O; RESPIRATORY RATE 18 b/min; RESPIRATORY RATE (OBSERVED) 18 b/min; TIDAL VOLUME 500 mL; TOTAL HEMOGLOBIN 9.9 G/dl (12.0-16.0)
[2017-06-17] MEDS: docusate sod 100mg capsule PO SCH (06:50)
[2017-06-17 07:05] LABS: PREALBUMIN 6.6 MG/DL (19-36)
[2017-06-17] MEDS: carVEDilol 3.125mg tablet PO SCH ×2 (08:00→20:00)
[2017-06-17] MEDS: insulin glargine (Lantus) pen - multi-dose SQ SCH (08:00)
[2017-06-17] MEDS: furosemide 40mg/4ml inj IV SCH ×2 (09:00→20:11)
[2017-06-17] MEDS: docusate sodium 100mg/10ml UD cup OGT SCH ×2 (09:00→20:10)
[2017-06-17] MEDS: lactobacillus rhamnosus 10,000 MMU CELLS/CAPSULE PO SCH ×2 (09:00→20:10)
[2017-06-17] MEDS: linezolid 600mg/300ml PREMIX 300 ML IV SCH ×2 (09:01→20:09)
[2017-06-17] MEDS: gabapentin 300mg capsule PO SCH ×2 (09:01→20:10)
[2017-06-17] MEDS: aspirin 325mg tablet PO SCH (09:01)
[2017-06-17] MEDS: clopidogrel 75mg tablet PO SCH (09:01)
[2017-06-17] MEDS: insulin regular, human vial - multi-dose SQ SCH ×3 (09:56→20:42)
[2017-06-17] MEDS: NORepinephrine 8mg/ 250ml NS 250 ML IV SCH (12:09)
[2017-06-17] MEDS: MORPHINE SULFATE IV SCH (12:13)
[2017-06-17] MEDS: NORMAL SALINE IV SCH (12:13)
[2017-06-17] MEDS: mineral oil/petrolatum ophthal oint EACHEYE SCH ×2 (13:18→20:20)
[2017-06-17] MEDS ORDERED: mineral oil/petrolatum ophthal oint EACHEYE SCH (14:00)
[2017-06-17] MEDS ORDERED: sodium phosphate inj. 30 MMOL in dextrose 5%-water 250 ML IV PRN (15:57)
[2017-06-17] MEDS ORDERED: sodium phosphate inj. 15 MMOL in dextrose 5%-water 150 ML IV PRN (15:57)
[2017-06-17] MEDS: atorvastatin 10mg tablet PO SCH (20:11)
[2017-06-17] MEDS: losartan 50mg tablet PO SCH (20:20)
[2017-06-17] MEDS: potassium chloride 8mEq ER tablet PO SCH (21:00)
[2017-06-17] MEDS: ALPRAZolam 0.5mg tablet PO SCH (21:00)
[2017-06-18] VITALS (24 sets, daily range): BP systolic 90–138; BP diastolic 40–59
[2017-06-18] MEDS: insulin regular, human vial - multi-dose SQ SCH ×4 (03:12→21:17)
[2017-06-18] MEDS: mineral oil/petrolatum ophthal oint EACHEYE SCH ×4 (03:15→21:05)
[2017-06-18] MEDS: NORepinephrine 8mg/ 250ml NS 250 ML IV SCH ×2 (03:16→21:03)
[2017-06-18] MEDS: piperacillin/tazo 3.375gm/50ml 50 ML IV SCH ×4 (03:16→21:04)
[2017-06-18] MEDS: ipratropium/albuterol 3ml nebule NEB SCH ×6 (03:19→22:36)
[2017-06-18 03:40] LABS: BASOPHILS % (AUTO) 0.2 % (0-1); EOSINOPHILS # (AUTO) 0.1 X10'3 (0-0.9); EOSINOPHILS % (AUTO) 1.2 % (0-6); HEMATOCRIT 27.8 % (35.0-45.0); HEMOGLOBIN 9.4 g/dl (12.0-16.0); LYMPHOCYTES # (AUTO) 0.9 X10'3 (1.1-4.8); LYMPHOCYTES % (AUTO) 10.5 % (21-51); MEAN CORPUSCULAR HEMOGLOBIN 28.8 PG (27.0-31.0); MEAN CORPUSCULAR HGB CONC 33.6 % (33.0-36.5); MEAN CORPUSCULAR VOLUME 85.8 FL (78-98); MEAN PLATELET VOLUME 9.7 FL (7.4-10.4); MONOCYTES # (AUTO) 1.3 X10'3 (0-0.9); MONOCYTES % (AUTO) 15.5 % (2-12); NEUTROPHILS % (AUTO) 72.6 % (42-75); PLATELET COUNT 171 X10'3 (140-440); RED BLOOD COUNT 3.24 X10'6 (4.20-5.60); RED CELL DISTRIBUTION WIDTH 15.5 % (11.5-14.5); WHITE BLOOD COUNT 8.3 X10'3 (4.5-11.0)
[2017-06-18 03:56] LABS: ALANINE AMINOTRANSFERASE 34 U/L (12-78); ALBUMIN 1.8 G/DL (3.4-5.0); ALBUMIN/GLOBULIN RATIO 0.4 (1.1-1.5); ALKALINE PHOSPHATASE 260 IU/L (46-116); ANION GAP 8 (8-16); ASPARTATE AMINO TRANSFERASE 39 U/L (10-37); BLOOD UREA NITROGEN 16 MG/DL (7-18); BUN/CREATININE RATIO 19.8 (6.6-38.0); CALCIUM 7.3 MG/DL (8.5-10.1); CHLORIDE 103 MMOL/L (99-107); CREATININE 0.81 MG/DL (0.40-0.90); GLUCOSE 250 MG/DL (70-104); MAGNESIUM 1.6 MG/DL (1.5-2.4); SODIUM 138 MMOL/L (135-145); TOTAL PROTEIN 5.9 G/DL (6.4-8.2); eGFR 72 ML/MIN
[2017-06-18] MEDS ORDERED: potassium Cl 40MEQ/250ML bag 500 ML IV ONE (03:59)
[2017-06-18] MEDS: potassium Cl 40MEQ/250ML bag 250 ML IV PRN ×3 (04:07→15:49)
[2017-06-18 05:15] LABS: ABG BASE EXCESS 0.1 mmol/L (-2.0-3.0); ABG HCO3 24.7 mmol/L (22.0-26.0); ABG OXYGEN SATURATION 95.2 % (95-98); ABG PCO2 (T) 42.1 mmHg (32.0-45.0); ABG PH (T) 7.391 (7.350-7.450); ABG PO2 (T) 85.3 mmHg (83-108); ALLEN'S TEST P; FCOHb 0.3 % (0.5-1.5); FO2Hb 94.9 % (94-100); PATIENT TEMPERATURE 38.3; PEEP 10 cm H2O; RESPIRATORY RATE 18 b/min; TIDAL VOLUME 500 mL; TOTAL HEMOGLOBIN 10.1 G/dl (12.0-16.0)
[2017-06-18] MEDS: acetaminophen 325mg tablet PO PRN (05:33)
[2017-06-18] MEDS: midazolam 100mg in NS 100ml 100 ML IV PRN ×2 (05:45→14:00)
[2017-06-18] MEDS: carVEDilol 3.125mg tablet PO SCH ×2 (08:00→20:00)
[2017-06-18] MEDS: gabapentin 300mg capsule PO SCH ×2 (08:22→21:03)
[2017-06-18] MEDS: aspirin 325mg tablet PO SCH (08:22)
[2017-06-18] MEDS: furosemide 40mg/4ml inj IV SCH ×2 (08:22→21:03)
[2017-06-18] MEDS: lactobacillus rhamnosus 10,000 MMU CELLS/CAPSULE PO SCH ×2 (08:22→21:03)
[2017-06-18] MEDS: linezolid 600mg/300ml PREMIX 300 ML IV SCH ×2 (08:22→21:05)
[2017-06-18] MEDS: clopidogrel 75mg tablet PO SCH (08:22)
[2017-06-18] MEDS: docusate sodium 100mg/10ml UD cup OGT SCH ×2 (08:23→21:03)
[2017-06-18] MEDS: NORMAL SALINE IV SCH (14:05)
[2017-06-18] MEDS: MORPHINE SULFATE IV SCH (14:05)
[2017-06-18] MEDS: losartan 50mg tablet PO SCH (21:00)
[2017-06-18] MEDS: ALPRAZolam 0.5mg tablet PO SCH (21:00)
[2017-06-18] MEDS: potassium chloride 8mEq ER tablet PO SCH (21:00)
[2017-06-18] MEDS: atorvastatin 20mg tablet PO SCH (21:04)
[2017-06-19] VITALS (23 sets, daily range): BP systolic 80–142; BP diastolic 44–67
[2017-06-19] MEDS: piperacillin/tazo 3.375gm/50ml 50 ML IV SCH ×4 (01:59→20:35)
[2017-06-19] MEDS: mineral oil/petrolatum ophthal oint EACHEYE SCH ×4 (01:59→20:36)
[2017-06-19] MEDS: acetaminophen 325mg tablet PO PRN (01:59)
[2017-06-19] MEDS: ipratropium/albuterol 3ml nebule NEB SCH ×6 (02:02→22:31)
[2017-06-19] MEDS: insulin regular, human vial - multi-dose SQ SCH ×4 (02:02→20:39)
[2017-06-19 02:37] LABS: BASOPHILS % (AUTO) 0.4 % (0-1); EOSINOPHILS # (AUTO) 0.1 X10'3 (0-0.9); EOSINOPHILS % (AUTO) 0.8 % (0-6); HEMATOCRIT 27.8 % (35.0-45.0); HEMOGLOBIN 9.3 g/dl (12.0-16.0); LYMPHOCYTES # (AUTO) 1.1 X10'3 (1.1-4.8); LYMPHOCYTES % (AUTO) 14.1 % (21-51); MEAN CORPUSCULAR HEMOGLOBIN 28.5 PG (27.0-31.0); MEAN CORPUSCULAR HGB CONC 33.4 % (33.0-36.5); MEAN CORPUSCULAR VOLUME 85.4 FL (78-98); MEAN PLATELET VOLUME 9.4 FL (7.4-10.4); MONOCYTES # (AUTO) 1.1 X10'3 (0-0.9); MONOCYTES % (AUTO) 13.2 % (2-12); NEUTROPHILS # (AUTO) 5.8 X10'3 (1.8-7.7); NEUTROPHILS % (AUTO) 71.5 % (42-75); PLATELET COUNT 195 X10'3 (140-440); RED BLOOD COUNT 3.26 X10'6 (4.20-5.60); RED CELL DISTRIBUTION WIDTH 15.2 % (11.5-14.5); WHITE BLOOD COUNT 8.1 X10'3 (4.5-11.0)
[2017-06-19 02:53] LABS: ALANINE AMINOTRANSFERASE 32 U/L (12-78); ALBUMIN 1.7 G/DL (3.4-5.0); ALBUMIN/GLOBULIN RATIO 0.4 (1.1-1.5); ALKALINE PHOSPHATASE 239 IU/L (46-116); ANION GAP 8 (8-16); ASPARTATE AMINO TRANSFERASE 37 U/L (10-37); BILIRUBIN,TOTAL 0.8 MG/DL (0.1-1.0); BLOOD UREA NITROGEN 13 MG/DL (7-18); CALCIUM 7.7 MG/DL (8.5-10.1); CHLORIDE 104 MMOL/L (99-107); CREATININE 0.93 MG/DL (0.40-0.90); GLUCOSE 262 MG/DL (70-104); POTASSIUM 3.6 MMOL/L (3.5-5.1); SODIUM 143 MMOL/L (135-145); TOTAL CARBON DIOXIDE 31.5 MMOL/L (24-32); TOTAL PROTEIN 6.3 G/DL (6.4-8.2); eGFR 61 ML/MIN
[2017-06-19 03:35] LABS: ABG BASE EXCESS 4.3 mmol/L (-2.0-3.0); ABG HCO3 28.5 mmol/L (22.0-26.0); ABG OXYGEN SATURATION 92.1 % (95-98); ABG PCO2 (T) 43.2 mmHg (32.0-45.0); ABG PH (T) 7.442 (7.350-7.450); FCOHb 0.2 % (0.5-1.5); FMetHb 0.1 % (0.3-1.12); FO2Hb 91.8 % (94-100); MINUTE VOLUME 10 L/min; PATIENT TEMPERATURE 38.2; PEEP 8 cm H2O; RESPIRATORY RATE 18 b/min; RESPIRATORY RATE (OBSERVED) 18 b/min; TIDAL VOLUME 500 mL; TOTAL HEMOGLOBIN 12.9 G/dl (12.0-16.0)
[2017-06-19 07:04] LABS: PREALBUMIN 5.8 MG/DL (19-36)
[2017-06-19] MEDS: carVEDilol 3.125mg tablet PO SCH ×2 (08:00→20:00)
[2017-06-19] MEDS: docusate sodium 100mg/10ml UD cup OGT SCH ×2 (08:08→20:34)
[2017-06-19] MEDS: lactobacillus rhamnosus 10,000 MMU CELLS/CAPSULE PO SCH ×2 (08:08→20:34)
[2017-06-19] MEDS: aspirin 325mg tablet PO SCH (08:08)
[2017-06-19] MEDS: clopidogrel 75mg tablet PO SCH (08:08)
[2017-06-19] MEDS: gabapentin 300mg capsule PO SCH ×2 (08:09→20:35)
[2017-06-19] MEDS: furosemide 40mg/4ml inj IV SCH (08:09)
[2017-06-19] MEDS: MORPHINE SULFATE IV SCH (08:50)
[2017-06-19] MEDS: NORMAL SALINE IV SCH (08:50)
[2017-06-19] MEDS ORDERED: linezolid 600mg tablet PO SCH (09:00)
[2017-06-19] MEDS: midazolam 100mg in NS 100ml 100 ML IV PRN (12:42)
[2017-06-19] MEDS ORDERED: ipratropium/albuterol 3ml nebule NEB SCH (15:00)
[2017-06-19] MEDS: atorvastatin 20mg tablet PO SCH (20:35)
[2017-06-19] MEDS: ALPRAZolam 0.5mg tablet PO SCH (21:00)
[2017-06-19] MEDS: losartan 50mg tablet PO SCH (21:00)
[2017-06-19] MEDS: potassium chloride 8mEq ER tablet PO SCH (21:00)
[2017-06-19] MEDS: NORepinephrine 8mg/ 250ml NS 250 ML IV SCH (21:03)
[2017-06-20] VITALS (23 sets, daily range): BP systolic 86–154; BP diastolic 45–69
[2017-06-20] MEDS: mineral oil/petrolatum ophthal oint EACHEYE SCH ×4 (01:56→21:26)
[2017-06-20] MEDS: piperacillin/tazo 3.375gm/50ml 50 ML IV SCH ×4 (01:57→21:24)
[2017-06-20] MEDS: insulin regular, human vial - multi-dose SQ SCH ×4 (01:58→21:38)
[2017-06-20] MEDS: ipratropium/albuterol 3ml nebule NEB SCH ×6 (02:13→23:21)
[2017-06-20 02:49] LABS: BASOPHILS % (AUTO) 0.5 % (0-1); EOSINOPHILS # (AUTO) 0.1 X10'3 (0-0.9); EOSINOPHILS % (AUTO) 0.7 % (0-6); HEMATOCRIT 26.5 % (35.0-45.0); HEMOGLOBIN 8.9 g/dl (12.0-16.0); LYMPHOCYTES # (AUTO) 1.1 X10'3 (1.1-4.8); LYMPHOCYTES % (AUTO) 14.6 % (21-51); MEAN CORPUSCULAR HEMOGLOBIN 28.7 PG (27.0-31.0); MEAN CORPUSCULAR HGB CONC 33.5 % (33.0-36.5); MEAN CORPUSCULAR VOLUME 85.8 FL (78-98); MONOCYTES % (AUTO) 13.8 % (2-12); NEUTROPHILS # (AUTO) 5.3 X10'3 (1.8-7.7); NEUTROPHILS % (AUTO) 70.4 % (42-75); PLATELET COUNT 203 X10'3 (140-440); RED BLOOD COUNT 3.09 X10'6 (4.20-5.60); WHITE BLOOD COUNT 7.5 X10'3 (4.5-11.0)
[2017-06-20 03:04] LABS: ALANINE AMINOTRANSFERASE 26 U/L (12-78); ALBUMIN 1.6 G/DL (3.4-5.0); ALBUMIN/GLOBULIN RATIO 0.3 (1.1-1.5); ALKALINE PHOSPHATASE 207 IU/L (46-116); ANION GAP 7 (8-16); ASPARTATE AMINO TRANSFERASE 36 U/L (10-37); BILIRUBIN,TOTAL 0.6 MG/DL (0.1-1.0); BLOOD UREA NITROGEN 16 MG/DL (7-18); BUN/CREATININE RATIO 17.6 (6.6-38.0); CALCIUM 7.7 MG/DL (8.5-10.1); CHLORIDE 103 MMOL/L (99-107); CREATININE 0.91 MG/DL (0.40-0.90); GLUCOSE 233 MG/DL (70-104); POTASSIUM 3.4 MMOL/L (3.5-5.1); SODIUM 144 MMOL/L (135-145); TOTAL CARBON DIOXIDE 33.7 MMOL/L (24-32); TOTAL PROTEIN 6.3 G/DL (6.4-8.2); eGFR 63 ML/MIN
[2017-06-20] MEDS ORDERED: potassium Cl 40MEQ/250ML bag 250 ML IV ONE (03:25)
[2017-06-20] MEDS: potassium Cl 40MEQ/250ML bag 250 ML IV PRN (03:36)
[2017-06-20 04:01] LABS: ABG BASE EXCESS 3.4 mmol/L (-2.0-3.0); ABG HCO3 27.3 mmol/L (22.0-26.0); ABG OXYGEN SATURATION 91.1 % (95-98); ABG PCO2 (T) 38.9 mmHg (32.0-45.0); ABG PH (T) 7.464 (7.350-7.450); ABG PO2 (T) 64.3 mmHg (83-108); FCOHb 0.3 % (0.5-1.5); FMetHb 0.3 % (0.3-1.12); FO2Hb 90.6 % (94-100); MINUTE VOLUME 9 L/min; PATIENT TEMPERATURE 37.2; PEEP 8 cm H2O; RESPIRATORY RATE 18 b/min; RESPIRATORY RATE (OBSERVED) 18 b/min; TIDAL VOLUME 500 mL; TOTAL HEMOGLOBIN 9.6 G/dl (12.0-16.0)
[2017-06-20] MEDS: MORPHINE IV SCH (08:00)
[2017-06-20] MEDS: docusate sodium 100mg/10ml UD cup OGT SCH ×2 (08:00→20:00)
[2017-06-20] MEDS: gabapentin 300mg capsule PO SCH ×2 (08:07→21:36)
[2017-06-20] MEDS: aspirin 325mg tablet PO SCH (08:07)
[2017-06-20] MEDS: clopidogrel 75mg tablet PO SCH (08:08)
[2017-06-20] MEDS: lactobacillus rhamnosus 10,000 MMU CELLS/CAPSULE PO SCH ×2 (08:08→21:36)
[2017-06-20] MEDS: carVEDilol 3.125mg tablet PO SCH ×2 (08:09→21:25)
[2017-06-20] MEDS ORDERED: furosemide 20 MG/2 ML vial IV ONE (09:50)
[2017-06-20] MEDS: potassium chloride 8mEq ER tablet PO SCH (21:00)
[2017-06-20] MEDS: atorvastatin 20mg tablet PO SCH (21:24)
[2017-06-20] MEDS: losartan 50mg tablet PO SCH (21:25)
[2017-06-20] MEDS: ALPRAZolam 0.5mg tablet PO SCH (21:36)
[2017-06-21] VITALS (24 sets, daily range): BP systolic 119–206; BP diastolic 57–111
[2017-06-21] MEDS: insulin regular, human vial - multi-dose SQ SCH ×4 (02:11→21:25)
[2017-06-21] MEDS: piperacillin/tazo 3.375gm/50ml 50 ML IV SCH ×4 (02:12→20:09)
[2017-06-21] MEDS: mineral oil/petrolatum ophthal oint EACHEYE SCH ×4 (02:12→20:09)
[2017-06-21 03:02] LABS: BASOPHILS % (AUTO) 0.3 % (0-1); EOSINOPHILS # (AUTO) 0.2 X10'3 (0-0.9); EOSINOPHILS % (AUTO) 2.8 % (0-6); HEMATOCRIT 25.5 % (35.0-45.0); HEMOGLOBIN 8.5 g/dl (12.0-16.0); LYMPHOCYTES # (AUTO) 0.8 X10'3 (1.1-4.8); LYMPHOCYTES % (AUTO) 10.8 % (21-51); MEAN CORPUSCULAR HEMOGLOBIN 28.8 PG (27.0-31.0); MEAN CORPUSCULAR HGB CONC 33.3 % (33.0-36.5); MEAN CORPUSCULAR VOLUME 86.5 FL (78-98); MEAN PLATELET VOLUME 8.8 FL (7.4-10.4); MONOCYTES % (AUTO) 13.3 % (2-12); NEUTROPHILS # (AUTO) 5.7 X10'3 (1.8-7.7); NEUTROPHILS % (AUTO) 72.8 % (42-75); PLATELET COUNT 206 X10'3 (140-440); RED BLOOD COUNT 2.95 X10'6 (4.20-5.60); RED CELL DISTRIBUTION WIDTH 15.2 % (11.5-14.5); WHITE BLOOD COUNT 7.8 X10'3 (4.5-11.0)
[2017-06-21] MEDS: ipratropium/albuterol 3ml nebule NEB SCH ×6 (03:17→22:59)
[2017-06-21 03:28] LABS: ALANINE AMINOTRANSFERASE 26 U/L (12-78); ALBUMIN 1.6 G/DL (3.4-5.0); ALBUMIN/GLOBULIN RATIO 0.3 (1.1-1.5); ALKALINE PHOSPHATASE 173 IU/L (46-116); ANION GAP 6 (8-16); ASPARTATE AMINO TRANSFERASE 36 U/L (10-37); BILIRUBIN,TOTAL 0.6 MG/DL (0.1-1.0); BLOOD UREA NITROGEN 20 MG/DL (7-18); CALCIUM 8.1 MG/DL (8.5-10.1); CHLORIDE 106 MMOL/L (99-107); GLUCOSE 229 MG/DL (70-104); MAGNESIUM 2.4 MG/DL (1.5-2.4); POTASSIUM 3.4 MMOL/L (3.5-5.1); SODIUM 145 MMOL/L (135-145); TOTAL CARBON DIOXIDE 33.5 MMOL/L (24-32); TOTAL PROTEIN 6.4 G/DL (6.4-8.2); eGFR 73 ML/MIN
[2017-06-21] MEDS: MORPHINE IV SCH (04:00)
[2017-06-21] MEDS ORDERED: potassium Cl 40MEQ/250ML bag 250 ML IV ONE (04:08)
[2017-06-21] MEDS: potassium Cl 40MEQ/250ML bag 250 ML IV PRN (04:20)
[2017-06-21 04:35] LABS: ABG BASE EXCESS 7.2 mmol/L (-2.0-3.0); ABG HCO3 31.5 mmol/L (22.0-26.0); ABG OXYGEN SATURATION 93.9 % (95-98); ABG PCO2 (T) 42.8 mmHg (32.0-45.0); ABG PH (T) 7.483 (7.350-7.450); ABG PO2 (T) 71.1 mmHg (83-108); FCOHb 0.3 % (0.5-1.5); FO2Hb 93.6 % (94-100); MINUTE VOLUME 9 L/min; PATIENT TEMPERATURE 36.7; PEEP 10 cm H2O; RESPIRATORY RATE 18 b/min; RESPIRATORY RATE (OBSERVED) 22 b/min; TIDAL VOLUME 500 mL; TOTAL HEMOGLOBIN 9.1 G/dl (12.0-16.0)
[2017-06-21] MEDS: gabapentin 300mg capsule PO SCH ×2 (07:56→20:11)
[2017-06-21] MEDS: lactobacillus rhamnosus 10,000 MMU CELLS/CAPSULE PO SCH ×2 (07:56→20:10)
[2017-06-21] MEDS: aspirin 325mg tablet PO SCH (07:56)
[2017-06-21] MEDS: carVEDilol 3.125mg tablet PO SCH ×2 (07:56→20:10)
[2017-06-21] MEDS: docusate sodium 100mg/10ml UD cup OGT SCH ×2 (07:57→20:10)
[2017-06-21] MEDS: clopidogrel 75mg tablet PO SCH (07:57)
[2017-06-21] MEDS: furosemide 40mg/4ml inj IV SCH (11:50)
[2017-06-21] MEDS: LORazepam 2 mg/ml vial IV PRN ×2 (14:04→23:33)
[2017-06-21] MEDS: hydrALAZINE 20mg/ml inj. IV PRN (17:17)
[2017-06-21] MEDS: HYDROcodone/acetaminophen 5mg/325mg tablet PO PRN (19:18)
[2017-06-21] MEDS: LORazepam 0.5 MG tablet PO PRN (20:10)
[2017-06-21] MEDS: atorvastatin 20mg tablet PO SCH (20:10)
[2017-06-21] MEDS: potassium chloride 8mEq ER tablet PO SCH (20:10)
[2017-06-21] MEDS: losartan 50mg tablet PO SCH (20:11)
[2017-06-21] MEDS: ALPRAZolam 0.5mg tablet PO SCH (20:18)
[2017-06-22] VITALS (24 sets, daily range): BP systolic 82–204; BP diastolic 47–103
[2017-06-22] MEDS: mineral oil/petrolatum ophthal oint EACHEYE SCH ×4 (01:32→20:33)
[2017-06-22] MEDS: HYDROcodone/acetaminophen 5mg/325mg tablet PO PRN (01:32)
[2017-06-22] MEDS: piperacillin/tazo 3.375gm/50ml 50 ML IV SCH ×4 (01:32→20:36)
[2017-06-22 02:35] LABS: ABG BASE EXCESS 2.9 mmol/L (-2.0-3.0); ABG HCO3 26.8 mmol/L (22.0-26.0); ABG OXYGEN SATURATION 95.8 % (95-98); ABG PCO2 (T) 38.6 mmHg (32.0-45.0); ABG PO2 (T) 86.4 mmHg (83-108); ALLEN'S TEST Positive; FCOHb 0.3 % (0.5-1.5); FMetHb 0.1 % (0.3-1.12); FO2Hb 95.4 % (94-100); MINUTE VOLUME 9 L/min; PEEP 8 cm H2O; RESPIRATORY RATE 18 b/min; RESPIRATORY RATE (OBSERVED) 18 b/min; TIDAL VOLUME 500 mL; TOTAL HEMOGLOBIN 9.8 G/dl (12.0-16.0)
[2017-06-22 02:36] LABS: ALBUMIN 1.7 G/DL (3.4-5.0); ANION GAP 8 (8-16); BLOOD UREA NITROGEN 23 MG/DL (7-18); BUN/CREATININE RATIO 26.7 (6.6-38.0); CALCIUM 8.1 MG/DL (8.5-10.1); CHLORIDE 104 MMOL/L (99-107); CREATININE 0.86 MG/DL (0.40-0.90); GLUCOSE 309 MG/DL (70-104); MAGNESIUM 2.3 MG/DL (1.5-2.4); PHOSPHORUS 3.4 MG/DL (2.3-4.5); POTASSIUM 3.3 MMOL/L (3.5-5.1); PREALBUMIN 8.2 MG/DL (19-36); SODIUM 144 MMOL/L (135-145); TOTAL CARBON DIOXIDE 31.7 MMOL/L (24-32); eGFR 67 ML/MIN
[2017-06-22] MEDS: ipratropium/albuterol 3ml nebule NEB SCH ×6 (03:28→23:20)
[2017-06-22] MEDS: potassium Cl 40MEQ/250ML bag 250 ML IV PRN (03:30)
[2017-06-22] MEDS ORDERED: potassium Cl 40MEQ/250ML bag 250 ML IV ONE (03:30)
[2017-06-22] MEDS: LORazepam 2 mg/ml vial IV PRN (07:16)
[2017-06-22] MEDS: furosemide 40mg/4ml inj IV SCH ×2 (07:30→20:34)
[2017-06-22] MEDS: gabapentin 300mg capsule PO SCH ×2 (07:30→20:37)
[2017-06-22] MEDS: lactobacillus rhamnosus 10,000 MMU CELLS/CAPSULE PO SCH ×2 (07:30→20:36)
[2017-06-22] MEDS: carVEDilol 3.125mg tablet PO SCH ×2 (07:30→20:36)
[2017-06-22] MEDS: docusate sodium 100mg/10ml UD cup OGT SCH ×2 (07:30→20:33)
[2017-06-22] MEDS: clopidogrel 75mg tablet PO SCH (07:31)
[2017-06-22] MEDS: aspirin 325mg tablet PO SCH (07:40)
[2017-06-22] MEDS: insulin regular, human vial - multi-dose SQ SCH ×3 (07:49→20:57)
[2017-06-22] MEDS ORDERED: fluconazole 100mg tablet NG SCH (08:00)
[2017-06-22] MEDS: FENTANYL-0.9 % NACL/PF 100 ML IV PRN ×2 (08:48→19:04)
[2017-06-22] MEDS: midazolam 100mg in NS 100ml 100 ML IV PRN ×2 (08:49→22:07)
[2017-06-22] MEDS ORDERED: iohexol 350MG/ML 100ml bottle IV ONE (10:26)
[2017-06-22] MEDS: enoxaparin 40mg/0.4ml syringe SUBCUT SCH (14:01)
[2017-06-22] MEDS: atorvastatin 20mg tablet PO SCH (20:36)
[2017-06-22] MEDS: ALPRAZolam 0.5mg tablet PO SCH (20:38)
[2017-06-22] MEDS: potassium chloride 8mEq ER tablet PO SCH (20:38)
[2017-06-22] MEDS: losartan 50mg tablet PO SCH (20:51)
[2017-06-23] VITALS (24 sets, daily range): BP systolic 11–168; BP diastolic 45–76
[2017-06-23] MEDS: NORepinephrine 8mg/ 250ml NS 250 ML IV SCH (00:51)
[2017-06-23] MEDS: insulin regular, human vial - multi-dose SQ SCH ×4 (02:44→21:57)
[2017-06-23] MEDS: piperacillin/tazo 3.375gm/50ml 50 ML IV SCH ×4 (02:45→21:20)
[2017-06-23] MEDS: mineral oil/petrolatum ophthal oint EACHEYE SCH ×4 (02:45→21:21)
[2017-06-23 03:10] LABS: BASOPHILS % (AUTO) 0.3 % (0-1); EOSINOPHILS # (AUTO) 0.3 X10'3 (0-0.9); HEMATOCRIT 24.1 % (35.0-45.0); HEMOGLOBIN 8.1 g/dl (12.0-16.0); LYMPHOCYTES # (AUTO) 1.2 X10'3 (1.1-4.8); LYMPHOCYTES % (AUTO) 9.6 % (21-51); MEAN CORPUSCULAR HEMOGLOBIN 28.8 PG (27.0-31.0); MEAN CORPUSCULAR HGB CONC 33.6 % (33.0-36.5); MEAN CORPUSCULAR VOLUME 85.8 FL (78-98); MEAN PLATELET VOLUME 8.8 FL (7.4-10.4); MONOCYTES # (AUTO) 1.7 X10'3 (0-0.9); NEUTROPHILS # (AUTO) 9.6 X10'3 (1.8-7.7); NEUTROPHILS % (AUTO) 75.1 % (42-75); PLATELET COUNT 299 X10'3 (140-440); RED BLOOD COUNT 2.81 X10'6 (4.20-5.60); RED CELL DISTRIBUTION WIDTH 14.9 % (11.5-14.5); WHITE BLOOD COUNT 12.8 X10'3 (4.5-11.0)
[2017-06-23 03:21] LABS: ABG BASE EXCESS 8.2 mmol/L (-2.0-3.0); ABG HCO3 32.5 mmol/L (22.0-26.0); ABG OXYGEN SATURATION 90.5 % (95-98); ABG PCO2 (T) 45.7 mmHg (32.0-45.0); ABG PH (T) 7.472 (7.350-7.450); ABG PO2 (T) 60.2 mmHg (83-108); ALLEN'S TEST Positive; FCOHb 0.2 % (0.5-1.5); FMetHb 0.3 % (0.3-1.12); MINUTE VOLUME 10 L/min; PATIENT TEMPERATURE 37.4; PEEP 8 cm H2O; RESPIRATORY RATE 18 b/min; RESPIRATORY RATE (OBSERVED) 20 b/min; TIDAL VOLUME 500 mL; TOTAL HEMOGLOBIN 9.2 G/dl (12.0-16.0)
[2017-06-23] MEDS: ipratropium/albuterol 3ml nebule NEB SCH ×6 (03:22→23:10)
[2017-06-23 03:45] LABS: ALANINE AMINOTRANSFERASE 24 U/L (12-78); ALBUMIN 1.8 G/DL (3.4-5.0); ALBUMIN/GLOBULIN RATIO 0.4 (1.1-1.5); ALKALINE PHOSPHATASE 132 IU/L (46-116); ANION GAP 9 (8-16); ASPARTATE AMINO TRANSFERASE 22 U/L (10-37); BILIRUBIN,TOTAL 0.6 MG/DL (0.1-1.0); BLOOD UREA NITROGEN 25 MG/DL (7-18); BUN/CREATININE RATIO 26.6 (6.6-38.0); CHLORIDE 104 MMOL/L (99-107); CREATININE 0.94 MG/DL (0.40-0.90); GLUCOSE 289 MG/DL (70-104); MAGNESIUM 2.3 MG/DL (1.5-2.4); PHOSPHORUS 3.5 MG/DL (2.3-4.5); POTASSIUM 3.7 MMOL/L (3.5-5.1); SODIUM 144 MMOL/L (135-145); TOTAL CARBON DIOXIDE 31.5 MMOL/L (24-32); TOTAL PROTEIN 6.8 G/DL (6.4-8.2); eGFR 60 ML/MIN
[2017-06-23] MEDS: furosemide 40mg/4ml inj IV SCH ×2 (07:58→21:19)
[2017-06-23] MEDS: docusate sodium 100mg/10ml UD cup OGT SCH ×2 (07:58→21:19)
[2017-06-23] MEDS: carVEDilol 3.125mg tablet PO SCH ×2 (07:59→20:00)
[2017-06-23] MEDS: lactobacillus rhamnosus 10,000 MMU CELLS/CAPSULE PO SCH ×2 (07:59→21:18)
[2017-06-23] MEDS: gabapentin 300mg capsule PO SCH ×2 (07:59→21:18)
[2017-06-23] MEDS: clopidogrel 75mg tablet PO SCH (07:59)
[2017-06-23] MEDS: enoxaparin 40mg/0.4ml syringe SUBCUT SCH (08:00)
[2017-06-23] MEDS: aspirin 325mg tablet PO SCH (08:00)
[2017-06-23] MEDS: FENTANYL-0.9 % NACL/PF 100 ML IV PRN ×2 (09:39→22:43)
[2017-06-23] MEDS: midazolam 100mg in NS 100ml 100 ML IV PRN (13:08)
[2017-06-23] MEDS: atorvastatin 20mg tablet PO SCH (21:18)
[2017-06-23] MEDS: ALPRAZolam 0.5mg tablet PO SCH (21:18)
[2017-06-23] MEDS: potassium chloride 8mEq ER tablet PO SCH (21:18)
[2017-06-23] MEDS: famotidine/PF 10 mg/ml inj IV SCH (21:20)
[2017-06-23] MEDS: morphine/NS 100mg/100ml bag 100 ML IV SCH (21:21)
[2017-06-23] MEDS: losartan 50mg tablet PO SCH (21:23)
[2017-06-23] MEDS: insulin glargine (Lantus) pen - multi-dose SQ SCH (21:58)
[2017-06-24] VITALS (24 sets, daily range): BP systolic 80–147; BP diastolic 40–64
[2017-06-24] MEDS: midazolam 100mg in NS 100ml 100 ML IV PRN (00:23)
[2017-06-24] MEDS: ipratropium/albuterol 3ml nebule NEB SCH ×6 (02:52→23:23)
[2017-06-24] MEDS: piperacillin/tazo 3.375gm/50ml 50 ML IV SCH ×4 (03:08→20:55)
[2017-06-24] MEDS: mineral oil/petrolatum ophthal oint EACHEYE SCH ×4 (03:10→20:52)
[2017-06-24] MEDS: insulin regular, human vial - multi-dose SQ SCH ×4 (03:12→20:41)
[2017-06-24 04:05] LABS: ABG BASE EXCESS 9.6 mmol/L (-2.0-3.0); ABG HCO3 34.2 mmol/L (22.0-26.0); ABG OXYGEN SATURATION 90.5 % (95-98); ABG PCO2 (T) 48.4 mmHg (32.0-45.0); ABG PH (T) 7.468 (7.350-7.450); ABG PO2 (T) 62.8 mmHg (83-108); ALLEN'S TEST Positive; FCOHb 0.2 % (0.5-1.5); FMetHb 0.3 % (0.3-1.12); MINUTE VOLUME 10 L/min; PATIENT TEMPERATURE 37.5; PEEP 8 cm H2O; RESPIRATORY RATE 18 b/min; RESPIRATORY RATE (OBSERVED) 19 b/min; TIDAL VOLUME 500 mL; TOTAL HEMOGLOBIN 8.5 G/dl (12.0-16.0)
[2017-06-24] MEDS: acetaminophen 325mg tablet PO PRN (05:26)
[2017-06-24] MEDS: NORepinephrine 8mg/ 250ml NS 250 ML IV SCH ×2 (06:30→18:24)
[2017-06-24 06:42] LABS: BASOPHILS % (AUTO) 0.2 % (0-1); EOSINOPHILS # (AUTO) 0.3 X10'3 (0-0.9); EOSINOPHILS % (AUTO) 1.9 % (0-6); HEMATOCRIT 23.5 % (35.0-45.0); LYMPHOCYTES # (AUTO) 1.8 X10'3 (1.1-4.8); LYMPHOCYTES % (AUTO) 14.1 % (21-51); MEAN CORPUSCULAR HEMOGLOBIN 29.1 PG (27.0-31.0); MEAN CORPUSCULAR VOLUME 85.7 FL (78-98); MONOCYTES # (AUTO) 1.5 X10'3 (0-0.9); MONOCYTES % (AUTO) 11.9 % (2-12); NEUTROPHILS # (AUTO) 9.3 X10'3 (1.8-7.7); NEUTROPHILS % (AUTO) 71.9 % (42-75); PLATELET COUNT 303 X10'3 (140-440); RED BLOOD COUNT 2.74 X10'6 (4.20-5.60); RED CELL DISTRIBUTION WIDTH 15.2 % (11.5-14.5)
[2017-06-24 07:20] LABS: ALANINE AMINOTRANSFERASE 21 U/L (12-78); ALBUMIN 1.8 G/DL (3.4-5.0); ALBUMIN/GLOBULIN RATIO 0.4 (1.1-1.5); ALKALINE PHOSPHATASE 110 IU/L (46-116); ANION GAP 10 (8-16); ASPARTATE AMINO TRANSFERASE 19 U/L (10-37); BILIRUBIN,TOTAL 0.5 MG/DL (0.1-1.0); BLOOD UREA NITROGEN 27 MG/DL (7-18); BUN/CREATININE RATIO 28.4 (6.6-38.0); CALCIUM 7.7 MG/DL (8.5-10.1); CHLORIDE 107 MMOL/L (99-107); CREATININE 0.95 MG/DL (0.40-0.90); GLUCOSE 201 MG/DL (70-104); MAGNESIUM 2.4 MG/DL (1.5-2.4); PHOSPHORUS 3.7 MG/DL (2.3-4.5); POTASSIUM 3.2 MMOL/L (3.5-5.1); SODIUM 149 MMOL/L (135-145); TOTAL CARBON DIOXIDE 32.3 MMOL/L (24-32); TOTAL PROTEIN 6.8 G/DL (6.4-8.2); eGFR 60 ML/MIN
[2017-06-24] MEDS: gabapentin 300mg capsule PO SCH ×2 (07:50→20:49)
[2017-06-24] MEDS: lactobacillus rhamnosus 10,000 MMU CELLS/CAPSULE PO SCH ×2 (07:50→20:49)
[2017-06-24] MEDS: furosemide 40mg/4ml inj IV SCH ×2 (07:50→20:51)
[2017-06-24] MEDS: famotidine/PF 10 mg/ml inj IV SCH ×2 (07:50→20:30)
[2017-06-24] MEDS: docusate sodium 100mg/10ml UD cup OGT SCH ×2 (07:50→20:51)
[2017-06-24] MEDS: clopidogrel 75mg tablet PO SCH (07:51)
[2017-06-24] MEDS: enoxaparin 40mg/0.4ml syringe SUBCUT SCH (07:52)
[2017-06-24] MEDS: aspirin 325mg tablet PO SCH (07:52)
[2017-06-24] MEDS: carVEDilol 3.125mg tablet PO SCH (07:53)
[2017-06-24] MEDS: morphine/NS 100mg/100ml bag 100 ML IV SCH (13:02)
[2017-06-24] MEDS: insulin glargine (Lantus) pen - multi-dose SQ SCH (20:43)
[2017-06-24] MEDS: atorvastatin 20mg tablet PO SCH (20:48)
[2017-06-24] MEDS: potassium chloride 8mEq ER tablet PO SCH (20:49)
[2017-06-24] MEDS: ALPRAZolam 0.5mg tablet PO SCH (20:50)
[2017-06-24] MEDS: losartan 50mg tablet PO SCH (20:50)
[2017-06-25] VITALS (24 sets, daily range): BP systolic 90–117; BP diastolic 47–63
[2017-06-25] MEDS: insulin regular, human vial - multi-dose SQ SCH ×4 (02:36→21:22)
[2017-06-25] MEDS: piperacillin/tazo 3.375gm/50ml 50 ML IV SCH ×4 (02:37→20:42)
[2017-06-25] MEDS: mineral oil/petrolatum ophthal oint EACHEYE SCH ×4 (02:38→20:42)
[2017-06-25] MEDS: ipratropium/albuterol 3ml nebule NEB SCH ×6 (02:43→22:37)
[2017-06-25 04:51] LABS: ABG BASE EXCESS 6.2 mmol/L (-2.0-3.0); ABG HCO3 30.5 mmol/L (22.0-26.0); ABG OXYGEN SATURATION 91.8 % (95-98); ABG PCO2 (T) 44.1 mmHg (32.0-45.0); ABG PH (T) 7.459 (7.350-7.450); ABG PO2 (T) 66.9 mmHg (83-108); ALLEN'S TEST Positive; FCOHb 0.3 % (0.5-1.5); FO2Hb 91.5 % (94-100); MINUTE VOLUME 8 L/min; PATIENT TEMPERATURE 37.3; PEEP 8 cm H2O; RESPIRATORY RATE 16 b/min; RESPIRATORY RATE (OBSERVED) 16 b/min; TIDAL VOLUME 500 mL; TOTAL HEMOGLOBIN 8.2 G/dl (12.0-16.0)
[2017-06-25 05:39] LABS: BASOPHILS # (AUTO) 0.1 X10'3 (0-0.2); BASOPHILS % (AUTO) 0.6 % (0-1); EOSINOPHILS # (AUTO) 0.3 X10'3 (0-0.9); EOSINOPHILS % (AUTO) 2.5 % (0-6); HEMATOCRIT 22.1 % (35.0-45.0); HEMOGLOBIN 7.4 g/dl (12.0-16.0); LYMPHOCYTES # (AUTO) 1.6 X10'3 (1.1-4.8); LYMPHOCYTES % (AUTO) 14.1 % (21-51); MEAN CORPUSCULAR HEMOGLOBIN 28.6 PG (27.0-31.0); MEAN CORPUSCULAR HGB CONC 33.3 % (33.0-36.5); MEAN CORPUSCULAR VOLUME 85.8 FL (78-98); MEAN PLATELET VOLUME 9.4 FL (7.4-10.4); MONOCYTES # (AUTO) 1.2 X10'3 (0-0.9); MONOCYTES % (AUTO) 10.6 % (2-12); NEUTROPHILS # (AUTO) 8.4 X10'3 (1.8-7.7); NEUTROPHILS % (AUTO) 72.2 % (42-75); PLATELET COUNT 299 X10'3 (140-440); RED BLOOD COUNT 2.57 X10'6 (4.20-5.60); RED CELL DISTRIBUTION WIDTH 14.9 % (11.5-14.5); WHITE BLOOD COUNT 11.7 X10'3 (4.5-11.0)
[2017-06-25 05:48] LABS: ALANINE AMINOTRANSFERASE 18 U/L (12-78); ALBUMIN 1.7 G/DL (3.4-5.0); ALBUMIN/GLOBULIN RATIO 0.3 (1.1-1.5); ALKALINE PHOSPHATASE 123 IU/L (46-116); ANION GAP 5 (8-16); ASPARTATE AMINO TRANSFERASE 28 U/L (10-37); BILIRUBIN,TOTAL 0.4 MG/DL (0.1-1.0); BLOOD UREA NITROGEN 31 MG/DL (7-18); BUN/CREATININE RATIO 31.3 (6.6-38.0); CALCIUM 7.8 MG/DL (8.5-10.1); CHLORIDE 110 MMOL/L (99-107); CREATININE 0.99 MG/DL (0.40-0.90); GLUCOSE 171 MG/DL (70-104); MAGNESIUM 2.5 MG/DL (1.5-2.4); PHOSPHORUS 3.7 MG/DL (2.3-4.5); POTASSIUM 3.7 MMOL/L (3.5-5.1); SODIUM 151 MMOL/L (135-145); TOTAL CARBON DIOXIDE 35.6 MMOL/L (24-32); TOTAL PROTEIN 6.7 G/DL (6.4-8.2); eGFR 57 ML/MIN
[2017-06-25] MEDS: furosemide 40mg/4ml inj IV SCH ×2 (08:29→20:43)
[2017-06-25] MEDS: docusate sodium 100mg/10ml UD cup OGT SCH ×2 (08:29→20:42)
[2017-06-25] MEDS: famotidine/PF 10 mg/ml inj IV SCH ×2 (08:29→20:43)
[2017-06-25] MEDS: gabapentin 300mg capsule PO SCH ×2 (08:30→20:43)
[2017-06-25] MEDS: lactobacillus rhamnosus 10,000 MMU CELLS/CAPSULE PO SCH ×2 (08:30→20:43)
[2017-06-25] MEDS: enoxaparin 40mg/0.4ml syringe SUBCUT SCH (08:30)
[2017-06-25] MEDS: clopidogrel 75mg tablet PO SCH (08:30)
[2017-06-25] MEDS: aspirin 325mg tablet PO SCH (08:41)
[2017-06-25] MEDS: ALPRAZolam 0.5mg tablet PO SCH (20:43)
[2017-06-25] MEDS: losartan 50mg tablet PO SCH (20:43)
[2017-06-25] MEDS: potassium chloride 8mEq ER tablet PO SCH (20:43)
[2017-06-25] MEDS: atorvastatin 20mg tablet PO SCH (20:43)
[2017-06-25] MEDS: insulin glargine (Lantus) pen - multi-dose SQ SCH (21:07)
[2017-06-25] MEDS ORDERED: insulin regular, human vial - multi-dose ONE (21:14)
[2017-06-26] VITALS (26 sets, daily range): BP systolic 90–126; BP diastolic 47–78
[2017-06-26] MEDS: midazolam 100mg in NS 100ml 100 ML IV PRN ×2 (00:13→14:54)
[2017-06-26] MEDS: mineral oil/petrolatum ophthal oint EACHEYE SCH ×4 (02:17→21:25)
[2017-06-26] MEDS: piperacillin/tazo 3.375gm/50ml 50 ML IV SCH ×2 (02:17→07:47)
[2017-06-26] MEDS: insulin regular, human vial - multi-dose SQ SCH ×4 (02:22→21:34)
[2017-06-26] MEDS: ipratropium/albuterol 3ml nebule NEB SCH ×6 (02:35→23:30)
[2017-06-26 04:31] LABS: BASOPHILS % (AUTO) 0.3 % (0-1); EOSINOPHILS # (AUTO) 0.4 X10'3 (0-0.9); EOSINOPHILS % (AUTO) 2.9 % (0-6); LYMPHOCYTES # (AUTO) 1.5 X10'3 (1.1-4.8); LYMPHOCYTES % (AUTO) 11.1 % (21-51); MEAN CORPUSCULAR HEMOGLOBIN 28.3 PG (27.0-31.0); MEAN CORPUSCULAR VOLUME 85.7 FL (78-98); MEAN PLATELET VOLUME 9.7 FL (7.4-10.4); MONOCYTES # (AUTO) 1.2 X10'3 (0-0.9); MONOCYTES % (AUTO) 9.3 % (2-12); NEUTROPHILS % (AUTO) 76.4 % (42-75); PLATELET COUNT 317 X10'3 (140-440); RED BLOOD COUNT 2.48 X10'6 (4.20-5.60); RED CELL DISTRIBUTION WIDTH 15.4 % (11.5-14.5); WHITE BLOOD COUNT 13.1 X10'3 (4.5-11.0)
[2017-06-26 04:44] LABS: HEMATOCRIT 21.3 % (35.0-45.0)
[2017-06-26 04:51] LABS: ABG BASE EXCESS 8.7 mmol/L (-2.0-3.0); ABG HCO3 33.4 mmol/L (22.0-26.0); ABG OXYGEN SATURATION 89.6 % (95-98); ABG PCO2 (T) 50.8 mmHg (32.0-45.0); ABG PH (T) 7.441 (7.350-7.450); ABG PO2 (T) 62.3 mmHg (83-108); ALLEN'S TEST Positive; FCOHb 0.3 % (0.5-1.5); FMetHb 0.3 % (0.3-1.12); FO2Hb 89.1 % (94-100); MINUTE VOLUME 8 L/min; PATIENT TEMPERATURE 38.3; PEEP 8 cm H2O; RESPIRATORY RATE 16 b/min; TIDAL VOLUME 500 mL; TOTAL HEMOGLOBIN 7.7 G/dl (12.0-16.0)
[2017-06-26 05:00] LABS: ALANINE AMINOTRANSFERASE 16 U/L (12-78); ALBUMIN 1.7 G/DL (3.4-5.0); ALBUMIN/GLOBULIN RATIO 0.3 (1.1-1.5); ALKALINE PHOSPHATASE 103 IU/L (46-116); ANION GAP 6 (8-16); ASPARTATE AMINO TRANSFERASE 14 U/L (10-37); BILIRUBIN,TOTAL 0.4 MG/DL (0.1-1.0); BLOOD UREA NITROGEN 44 MG/DL (7-18); BUN/CREATININE RATIO 42.7 (6.6-38.0); CHLORIDE 111 MMOL/L (99-107); CREATININE 1.03 MG/DL (0.40-0.90); GLUCOSE 231 MG/DL (70-104); MAGNESIUM 2.8 MG/DL (1.5-2.4); PHOSPHORUS 3.3 MG/DL (2.3-4.5); POTASSIUM 3.6 MMOL/L (3.5-5.1); SODIUM 151 MMOL/L (135-145); TOTAL CARBON DIOXIDE 33.6 MMOL/L (24-32); TOTAL PROTEIN 6.6 G/DL (6.4-8.2); eGFR 54 ML/MIN
[2017-06-26 07:19] LABS: PREALBUMIN 11.8 MG/DL (19-36)
[2017-06-26] MEDS: docusate sodium 100mg/10ml UD cup OGT SCH ×2 (07:47→21:27)
[2017-06-26] MEDS: enoxaparin 40mg/0.4ml syringe SUBCUT SCH (07:47)
[2017-06-26] MEDS: lactobacillus rhamnosus 10,000 MMU CELLS/CAPSULE PO SCH ×2 (07:47→21:29)
[2017-06-26] MEDS: gabapentin 300mg capsule PO SCH ×2 (07:48→21:28)
[2017-06-26] MEDS: furosemide 40mg/4ml inj IV SCH ×2 (07:48→21:25)
[2017-06-26] MEDS: aspirin 325mg tablet PO SCH (07:48)
[2017-06-26] MEDS: famotidine/PF 10 mg/ml inj IV SCH ×2 (07:48→21:26)
[2017-06-26] MEDS: clopidogrel 75mg tablet PO SCH (07:49)
[2017-06-26] MEDS: methylnaltrexone br 12mg/0.6ml inj***SubQ only SQ SCH (14:01)
[2017-06-26] MEDS: morphine/NS 100mg/100ml bag 100 ML IV SCH (17:24)
[2017-06-26] MEDS: potassium chloride 8mEq ER tablet PO SCH (21:00)
[2017-06-26] MEDS: losartan 50mg tablet PO SCH (21:28)
[2017-06-26] MEDS: atorvastatin 20mg tablet PO SCH (21:28)
[2017-06-26] MEDS: ALPRAZolam 0.5mg tablet PO SCH (21:28)
[2017-06-26] MEDS: insulin glargine (Lantus) pen - multi-dose SQ SCH (21:31)
[2017-06-27] VITALS (24 sets, daily range): BP systolic 86–135; BP diastolic 47–69
[2017-06-27] MEDS: mineral oil/petrolatum ophthal oint EACHEYE SCH ×4 (01:44→20:03)
[2017-06-27] MEDS: midazolam 100mg in NS 100ml 100 ML IV PRN ×2 (01:46→13:56)
[2017-06-27] MEDS: insulin regular, human vial - multi-dose SQ SCH ×4 (02:38→21:58)
[2017-06-27 02:50] LABS: BASOPHILS # (AUTO) 0.1 X10'3 (0-0.2); BASOPHILS % (AUTO) 0.4 % (0-1); EOSINOPHILS # (AUTO) 0.4 X10'3 (0-0.9); EOSINOPHILS % (AUTO) 3.2 % (0-6); HEMATOCRIT 24.3 % (35.0-45.0); HEMOGLOBIN 8.1 g/dl (12.0-16.0); LYMPHOCYTES # (AUTO) 1.5 X10'3 (1.1-4.8); LYMPHOCYTES % (AUTO) 12.1 % (21-51); MEAN CORPUSCULAR HEMOGLOBIN 28.6 PG (27.0-31.0); MEAN CORPUSCULAR HGB CONC 33.1 % (33.0-36.5); MEAN CORPUSCULAR VOLUME 86.2 FL (78-98); MEAN PLATELET VOLUME 9.9 FL (7.4-10.4); MONOCYTES # (AUTO) 0.9 X10'3 (0-0.9); NEUTROPHILS # (AUTO) 9.9 X10'3 (1.8-7.7); NEUTROPHILS % (AUTO) 77.3 % (42-75); PLATELET COUNT 311 X10'3 (140-440); RED BLOOD COUNT 2.82 X10'6 (4.20-5.60); RED CELL DISTRIBUTION WIDTH 15.2 % (11.5-14.5); WHITE BLOOD COUNT 12.8 X10'3 (4.5-11.0)
[2017-06-27 03:08] LABS: ALANINE AMINOTRANSFERASE 14 U/L (12-78); ALBUMIN 1.7 G/DL (3.4-5.0); ALBUMIN/GLOBULIN RATIO 0.3 (1.1-1.5); ALKALINE PHOSPHATASE 96 IU/L (46-116); ANION GAP 4 (8-16); ASPARTATE AMINO TRANSFERASE 13 U/L (10-37); BILIRUBIN,TOTAL 0.5 MG/DL (0.1-1.0); BLOOD UREA NITROGEN 40 MG/DL (7-18); BUN/CREATININE RATIO 50.6 (6.6-38.0); CALCIUM 8.2 MG/DL (8.5-10.1); CHLORIDE 111 MMOL/L (99-107); CREATININE 0.79 MG/DL (0.40-0.90); GLUCOSE 242 MG/DL (70-104); MAGNESIUM 2.7 MG/DL (1.5-2.4); PHOSPHORUS 3.2 MG/DL (2.3-4.5); POTASSIUM 3.5 MMOL/L (3.5-5.1); SODIUM 149 MMOL/L (135-145); TOTAL CARBON DIOXIDE 33.8 MMOL/L (24-32); TOTAL PROTEIN 6.7 G/DL (6.4-8.2); eGFR 74 ML/MIN
[2017-06-27] MEDS: ipratropium/albuterol 3ml nebule NEB SCH ×6 (03:19→22:27)
[2017-06-27 03:31] LABS: ABG BASE EXCESS 8.5 mmol/L (-2.0-3.0); ABG HCO3 32.5 mmol/L (22.0-26.0); ABG OXYGEN SATURATION 86.3 % (95-98); ABG PCO2 (T) 43.3 mmHg (32.0-45.0); ABG PH (T) 7.495 (7.350-7.450); ALLEN'S TEST Positive; FCOHb 0.4 % (0.5-1.5); FMetHb 0.3 % (0.3-1.12); FO2Hb 85.7 % (94-100); PATIENT TEMPERATURE 37.4; PEEP 8 cm H2O; RESPIRATORY RATE 16 b/min; RESPIRATORY RATE (OBSERVED) 16 b/min; TIDAL VOLUME 50 mL; TOTAL HEMOGLOBIN 8.2 G/dl (12.0-16.0)
[2017-06-27] MEDS: docusate sodium 100mg/10ml UD cup OGT SCH ×2 (08:00→20:02)
[2017-06-27] MEDS: gabapentin 300mg capsule PO SCH ×2 (08:01→20:03)
[2017-06-27] MEDS: lactobacillus rhamnosus 10,000 MMU CELLS/CAPSULE PO SCH ×2 (08:01→20:03)
[2017-06-27] MEDS: clopidogrel 75mg tablet PO SCH (08:01)
[2017-06-27] MEDS: aspirin 325mg tablet PO SCH (08:01)
[2017-06-27] MEDS: furosemide 40mg/4ml inj IV SCH ×2 (08:02→20:03)
[2017-06-27] MEDS: famotidine/PF 10 mg/ml inj IV SCH ×2 (08:02→22:18)
[2017-06-27] MEDS: enoxaparin 40mg/0.4ml syringe SUBCUT SCH (08:02)
[2017-06-27] MEDS ORDERED: bisacodyl 10mg suppository rectal RC PRN (10:35)
[2017-06-27] MEDS: potassium chloride 8mEq ER tablet PO SCH (21:00)
[2017-06-27] MEDS: insulin glargine (Lantus) pen - multi-dose SQ SCH (21:57)
[2017-06-27] MEDS: ALPRAZolam 0.5mg tablet PO SCH (22:04)
[2017-06-27] MEDS: atorvastatin 20mg tablet PO SCH (22:04)
[2017-06-27] MEDS: losartan 50mg tablet PO SCH (22:13)
[2017-06-28] VITALS (24 sets, daily range): BP systolic 92–139; BP diastolic 46–72
[2017-06-28] MEDS: ipratropium/albuterol 3ml nebule NEB SCH ×6 (02:30→23:09)
[2017-06-28] MEDS: morphine/NS 100mg/100ml bag 100 ML IV SCH (02:33)
[2017-06-28] MEDS: midazolam 100mg in NS 100ml 100 ML IV PRN ×2 (02:34→17:47)
[2017-06-28] MEDS: insulin regular, human vial - multi-dose SQ SCH ×4 (02:34→21:34)
[2017-06-28] MEDS: mineral oil/petrolatum ophthal oint EACHEYE SCH ×4 (02:35→21:24)
[2017-06-28 03:31] LABS: ABG BASE EXCESS 8.2 mmol/L (-2.0-3.0); ABG PCO2 (T) 41.8 mmHg (32.0-45.0); ABG PH (T) 7.503 (7.350-7.450); ABG PO2 (T) 57.5 mmHg (83-108); ALLEN'S TEST Positive; FCOHb 0.4 % (0.5-1.5); FO2Hb 88.6 % (94-100); MINUTE VOLUME 8 L/min; PATIENT TEMPERATURE 37.2; PEEP 8 cm H2O; RESPIRATORY RATE 16 b/min; RESPIRATORY RATE (OBSERVED) 16 b/min; TIDAL VOLUME 500 mL; TOTAL HEMOGLOBIN 8.3 G/dl (12.0-16.0)
[2017-06-28 03:47] LABS: BASOPHILS % (AUTO) 0.3 % (0-1); EOSINOPHILS # (AUTO) 0.3 X10'3 (0-0.9); EOSINOPHILS % (AUTO) 2.7 % (0-6); HEMOGLOBIN 7.7 g/dl (12.0-16.0); LYMPHOCYTES # (AUTO) 1.6 X10'3 (1.1-4.8); LYMPHOCYTES % (AUTO) 12.8 % (21-51); MEAN CORPUSCULAR HEMOGLOBIN 28.4 PG (27.0-31.0); MEAN CORPUSCULAR HGB CONC 33.3 % (33.0-36.5); MEAN CORPUSCULAR VOLUME 85.2 FL (78-98); MEAN PLATELET VOLUME 10.1 FL (7.4-10.4); MONOCYTES # (AUTO) 1.1 X10'3 (0-0.9); MONOCYTES % (AUTO) 8.5 % (2-12); NEUTROPHILS # (AUTO) 9.5 X10'3 (1.8-7.7); NEUTROPHILS % (AUTO) 75.7 % (42-75); PLATELET COUNT 315 X10'3 (140-440); RED CELL DISTRIBUTION WIDTH 15.3 % (11.5-14.5); WHITE BLOOD COUNT 12.5 X10'3 (4.5-11.0)
[2017-06-28 04:02] LABS: ALANINE AMINOTRANSFERASE 14 U/L (12-78); ALBUMIN 1.7 G/DL (3.4-5.0); ALBUMIN/GLOBULIN RATIO 0.3 (1.1-1.5); ALKALINE PHOSPHATASE 87 IU/L (46-116); ANION GAP 8 (8-16); ASPARTATE AMINO TRANSFERASE 14 U/L (10-37); BILIRUBIN,TOTAL 0.5 MG/DL (0.1-1.0); BLOOD UREA NITROGEN 36 MG/DL (7-18); BUN/CREATININE RATIO 38.7 (6.6-38.0); CALCIUM 8.2 MG/DL (8.5-10.1); CHLORIDE 110 MMOL/L (99-107); CREATININE 0.93 MG/DL (0.40-0.90); GLUCOSE 253 MG/DL (70-104); MAGNESIUM 2.6 MG/DL (1.5-2.4); PHOSPHORUS 3.7 MG/DL (2.3-4.5); POTASSIUM 3.3 MMOL/L (3.5-5.1); SODIUM 149 MMOL/L (135-145); TOTAL CARBON DIOXIDE 31.5 MMOL/L (24-32); TOTAL PROTEIN 6.8 G/DL (6.4-8.2); eGFR 61 ML/MIN
[2017-06-28] MEDS ORDERED: potassium Cl 40MEQ/250ML bag 250 ML IV ONE (05:00)
[2017-06-28] MEDS: potassium Cl 40MEQ/250ML bag 250 ML IV PRN (05:10)
[2017-06-28] MEDS: methylnaltrexone br 12mg/0.6ml inj***SubQ only SQ SCH (07:40)
[2017-06-28] MEDS: furosemide 40mg/4ml inj IV SCH ×2 (07:40→21:21)
[2017-06-28] MEDS: aspirin 325mg tablet PO SCH (07:40)
[2017-06-28] MEDS: docusate sodium 100mg/10ml UD cup OGT SCH ×2 (07:40→21:22)
[2017-06-28] MEDS: gabapentin 300mg capsule PO SCH ×2 (07:41→21:20)
[2017-06-28] MEDS: lactobacillus rhamnosus 10,000 MMU CELLS/CAPSULE PO SCH ×2 (07:41→21:22)
[2017-06-28] MEDS: clopidogrel 75mg tablet PO SCH (07:41)
[2017-06-28] MEDS: enoxaparin 40mg/0.4ml syringe SUBCUT SCH (07:42)
[2017-06-28] MEDS: famotidine/PF 10 mg/ml inj IV SCH ×2 (08:00→21:21)
[2017-06-28] MEDS ORDERED: mineral oil 133ml enema RC PRN (10:25)
[2017-06-28] MEDS: atorvastatin 20mg tablet PO SCH (21:20)
[2017-06-28] MEDS: ALPRAZolam 0.5mg tablet PO SCH (21:20)
[2017-06-28] MEDS: losartan 50mg tablet PO SCH (21:21)
[2017-06-28] MEDS: insulin glargine (Lantus) pen - multi-dose SQ SCH (21:32)
[2017-06-28] MEDS ORDERED: potassium Cl oral solution 20 MEQ/15 ML PO ONE (21:40)
[2017-06-29] VITALS (24 sets, daily range): BP systolic 83–190; BP diastolic 48–86
[2017-06-29] MEDS: morphine/NS 100mg/100ml bag 100 ML IV SCH (01:14)
[2017-06-29] MEDS: mineral oil/petrolatum ophthal oint EACHEYE SCH ×4 (02:22→21:00)
[2017-06-29] MEDS: insulin regular, human vial - multi-dose SQ SCH ×4 (02:25→21:08)
[2017-06-29] MEDS: ipratropium/albuterol 3ml nebule NEB SCH ×6 (03:04→23:16)
[2017-06-29 03:25] LABS: ABG HCO3 29.3 mmol/L (22.0-26.0); ABG OXYGEN SATURATION 90.4 % (95-98); ABG PCO2 (T) 42.1 mmHg (32.0-45.0); ABG PO2 (T) 62.9 mmHg (83-108); ALLEN'S TEST Positive; FCOHb 0.1 % (0.5-1.5); FMetHb 0.3 % (0.3-1.12); MINUTE VOLUME 8 L/min; PATIENT TEMPERATURE 36.7; PEEP 8 cm H2O; RESPIRATORY RATE 16 b/min; RESPIRATORY RATE (OBSERVED) 16 b/min; TIDAL VOLUME 500 mL; TOTAL HEMOGLOBIN 8.5 G/dl (12.0-16.0)
[2017-06-29 06:19] LABS: BASOPHILS # (AUTO) 0.1 X10'3 (0-0.2); BASOPHILS % (AUTO) 0.5 % (0-1); EOSINOPHILS # (AUTO) 0.4 X10'3 (0-0.9); EOSINOPHILS % (AUTO) 3.2 % (0-6); HEMATOCRIT 23.1 % (35.0-45.0); HEMOGLOBIN 7.6 g/dl (12.0-16.0); LYMPHOCYTES # (AUTO) 1.5 X10'3 (1.1-4.8); LYMPHOCYTES % (AUTO) 13.3 % (21-51); MEAN CORPUSCULAR HEMOGLOBIN 28.3 PG (27.0-31.0); MEAN CORPUSCULAR VOLUME 85.8 FL (78-98); MEAN PLATELET VOLUME 10.6 FL (7.4-10.4); NEUTROPHILS # (AUTO) 8.5 X10'3 (1.8-7.7); PLATELET COUNT 306 X10'3 (140-440); RED BLOOD COUNT 2.69 X10'6 (4.20-5.60); RED CELL DISTRIBUTION WIDTH 14.8 % (11.5-14.5); WHITE BLOOD COUNT 11.5 X10'3 (4.5-11.0)
[2017-06-29 06:38] LABS: ALANINE AMINOTRANSFERASE 17 U/L (12-78); ALBUMIN 1.7 G/DL (3.4-5.0); ALBUMIN/GLOBULIN RATIO 0.3 (1.1-1.5); ALKALINE PHOSPHATASE 88 IU/L (46-116); ANION GAP 9 (8-16); ASPARTATE AMINO TRANSFERASE 17 U/L (10-37); BILIRUBIN,TOTAL 0.5 MG/DL (0.1-1.0); BLOOD UREA NITROGEN 39 MG/DL (7-18); BUN/CREATININE RATIO 44.3 (6.6-38.0); CALCIUM 8.3 MG/DL (8.5-10.1); CHLORIDE 110 MMOL/L (99-107); CREATININE 0.88 MG/DL (0.40-0.90); GLUCOSE 189 MG/DL (70-104); MAGNESIUM 2.6 MG/DL (1.5-2.4); PHOSPHORUS 4.2 MG/DL (2.3-4.5); POTASSIUM 3.5 MMOL/L (3.5-5.1); SODIUM 149 MMOL/L (135-145); TOTAL CARBON DIOXIDE 30.1 MMOL/L (24-32); TOTAL PROTEIN 6.6 G/DL (6.4-8.2); eGFR 65 ML/MIN
[2017-06-29] MEDS: famotidine/PF 10 mg/ml inj IV SCH ×2 (08:00→21:28)
[2017-06-29] MEDS: furosemide 40mg/4ml inj IV SCH ×2 (08:07→21:00)
[2017-06-29] MEDS: docusate sodium 100mg/10ml UD cup OGT SCH ×2 (08:07→21:01)
[2017-06-29] MEDS: aspirin 325mg tablet PO SCH (08:08)
[2017-06-29] MEDS: clopidogrel 75mg tablet PO SCH (08:08)
[2017-06-29] MEDS: lactobacillus rhamnosus 10,000 MMU CELLS/CAPSULE PO SCH ×2 (08:08→21:01)
[2017-06-29] MEDS: enoxaparin 40mg/0.4ml syringe SUBCUT SCH (08:09)
[2017-06-29] MEDS: gabapentin 300mg capsule PO SCH ×2 (08:09→21:01)
[2017-06-29 08:53] LABS: LARGE PLATELETS FEW; PLATELET ESTIMATE NORMAL
[2017-06-29] MEDS: magnesium hydroxide 30ml (MOM) UD suspension PO PRN (10:27)
[2017-06-29] MEDS: metoclopramide 5 mg/ml inj IV PRN (10:27)
[2017-06-29] MEDS: dexmedetomidin/NS 400mcg/100ml 100 ML IV SCH ×3 (10:55→21:27)
[2017-06-29 14:09] LABS: % IRON SATURATION 10 % (11-46); IRON 17 UG/DL (49-151); TOTAL IRON BINDING CAPACITY 175 UG/DL (259-388)
[2017-06-29] MEDS: atorvastatin 20mg tablet PO SCH (21:00)
[2017-06-29] MEDS: losartan 50mg tablet PO SCH (21:01)
[2017-06-29] MEDS: ALPRAZolam 0.5mg tablet PO SCH (21:02)
[2017-06-29] MEDS: potassium Cl oral solution 20 MEQ/15 ML PO SCH (21:02)
[2017-06-29] MEDS: insulin glargine (Lantus) pen - multi-dose SQ SCH (21:06)
[2017-06-29] MEDS: midazolam 100mg in NS 100ml 100 ML IV PRN (21:09)
[2017-06-30] VITALS (27 sets, daily range): BP systolic 117–225; BP diastolic 69–116
[2017-06-30] MEDS: mineral oil/petrolatum ophthal oint EACHEYE SCH ×4 (02:17→20:00)
[2017-06-30] MEDS: insulin regular, human vial - multi-dose SQ SCH ×4 (02:21→21:22)
[2017-06-30] MEDS: acetaminophen 325mg tablet PO PRN (02:43)
[2017-06-30] MEDS: morphine/NS 100mg/100ml bag 100 ML IV SCH (03:20)
[2017-06-30] MEDS: ipratropium/albuterol 3ml nebule NEB SCH ×6 (03:28→20:09)
[2017-06-30 04:11] LABS: ABG BASE EXCESS 6.7 mmol/L (-2.0-3.0); ABG HCO3 29.5 mmol/L (22.0-26.0); ABG PCO2 (T) 35.4 mmHg (32.0-45.0); ABG PO2 (T) 68.3 mmHg (83-108); ALLEN'S TEST Positive; FCOHb 0.3 % (0.5-1.5); FMetHb 0.3 % (0.3-1.12); FO2Hb 92.4 % (94-100); MINUTE VOLUME 8 L/min; PATIENT TEMPERATURE 37.5; PEEP 5 cm H2O; RESPIRATORY RATE 16 b/min; RESPIRATORY RATE (OBSERVED) 16 b/min; TIDAL VOLUME 500 mL; TOTAL HEMOGLOBIN 8.8 G/dl (12.0-16.0)
[2017-06-30] MEDS: dexmedetomidin/NS 400mcg/100ml 100 ML IV SCH ×4 (04:40→16:42)
[2017-06-30 05:46] LABS: BASOPHILS % (AUTO) 0.3 % (0-1); EOSINOPHILS # (AUTO) 0.3 X10'3 (0-0.9); EOSINOPHILS % (AUTO) 2.1 % (0-6); HEMATOCRIT 24.3 % (35.0-45.0); HEMOGLOBIN 8.1 g/dl (12.0-16.0); LYMPHOCYTES # (AUTO) 1.4 X10'3 (1.1-4.8); LYMPHOCYTES % (AUTO) 11.1 % (21-51); MEAN CORPUSCULAR HEMOGLOBIN 28.2 PG (27.0-31.0); MEAN CORPUSCULAR HGB CONC 33.3 % (33.0-36.5); MEAN CORPUSCULAR VOLUME 84.8 FL (78-98); MEAN PLATELET VOLUME 10.1 FL (7.4-10.4); MONOCYTES # (AUTO) 1.3 X10'3 (0-0.9); MONOCYTES % (AUTO) 10.2 % (2-12); NEUTROPHILS # (AUTO) 9.7 X10'3 (1.8-7.7); NEUTROPHILS % (AUTO) 76.3 % (42-75); PLATELET COUNT 318 X10'3 (140-440); RED BLOOD COUNT 2.87 X10'6 (4.20-5.60); RED CELL DISTRIBUTION WIDTH 14.5 % (11.5-14.5); WHITE BLOOD COUNT 12.7 X10'3 (4.5-11.0)
[2017-06-30 06:03] LABS: ALANINE AMINOTRANSFERASE 15 U/L (12-78); ALBUMIN 1.8 G/DL (3.4-5.0); ALBUMIN/GLOBULIN RATIO 0.3 (1.1-1.5); ALKALINE PHOSPHATASE 88 IU/L (46-116); ANION GAP 7 (8-16); ASPARTATE AMINO TRANSFERASE 18 U/L (10-37); BILIRUBIN,TOTAL 0.5 MG/DL (0.1-1.0); BLOOD UREA NITROGEN 27 MG/DL (7-18); BUN/CREATININE RATIO 33.8 (6.6-38.0); CALCIUM 8.4 MG/DL (8.5-10.1); CHLORIDE 110 MMOL/L (99-107); GLUCOSE 180 MG/DL (70-104); MAGNESIUM 2.7 MG/DL (1.5-2.4); POTASSIUM 3.5 MMOL/L (3.5-5.1); SODIUM 149 MMOL/L (135-145); TOTAL CARBON DIOXIDE 31.6 MMOL/L (24-32); eGFR 73 ML/MIN
[2017-06-30 07:43] LABS: PHOSPHORUS 3.9 MG/DL (2.3-4.5)
[2017-06-30] MEDS: furosemide 40mg/4ml inj IV SCH ×2 (08:53→21:08)
[2017-06-30] MEDS: famotidine/PF 10 mg/ml inj IV SCH ×2 (08:53→22:10)
[2017-06-30] MEDS: docusate sodium 100mg/10ml UD cup OGT SCH ×2 (08:53→21:09)
[2017-06-30] MEDS: gabapentin 300mg capsule PO SCH ×2 (08:54→21:13)
[2017-06-30] MEDS: lactobacillus rhamnosus 10,000 MMU CELLS/CAPSULE PO SCH ×2 (08:54→21:11)
[2017-06-30] MEDS: clopidogrel 75mg tablet PO SCH (08:54)
[2017-06-30] MEDS: aspirin 325mg tablet PO SCH (08:55)
[2017-06-30] MEDS: enoxaparin 40mg/0.4ml syringe SUBCUT SCH (08:55)
[2017-06-30] MEDS: methylnaltrexone br 12mg/0.6ml inj***SubQ only SQ SCH (08:58)
[2017-06-30 09:42] LABS: C-REACTIVE PROTEIN 1.94 MG/DL (0.0-0.5)
[2017-06-30] MEDS: methylPREDNISolone sod succ 125mg/2ml vial IV SCH ×3 (09:44→23:59)
[2017-06-30] MEDS ORDERED: ipratropium/albuterol 3ml nebule NEB PRN (12:05)
[2017-06-30] MEDS ORDERED: racepinephrine 11.25mg/0.5ml nebule NEB PRN (12:05)
[2017-06-30] MEDS: dextrose 5%-water 1,000 ML IV SCH (16:44)
[2017-06-30] MEDS: hydrALAZINE 20mg/ml inj. IV PRN (18:01)
[2017-06-30] MEDS ORDERED: hydrALAZINE 20mg/ml inj. IV PRN (20:05)
[2017-06-30] MEDS ORDERED: hydrALAZINE 20mg/ml inj. IV ONE (20:05)
[2017-06-30] MEDS: ALPRAZolam 0.5mg tablet PO SCH (21:09)
[2017-06-30] MEDS: atorvastatin 20mg tablet PO SCH (21:09)
[2017-06-30] MEDS: losartan 50mg tablet PO SCH (21:09)
[2017-06-30] MEDS: potassium Cl oral solution 20 MEQ/15 ML PO SCH (21:09)
[2017-06-30] MEDS: carvedilol 6.25mg tablet PO SCH (21:10)
[2017-06-30] MEDS: cyclobenzaprine 10mg tablet PO PRN (21:10)
[2017-06-30] MEDS: metoclopramide 5 mg/ml inj IV PRN (21:11)
[2017-06-30] MEDS: insulin glargine (Lantus) pen - multi-dose SQ SCH (21:20)
[2017-07-01] VITALS (35 sets, daily range): BP systolic 88–151; BP diastolic 50–78
[2017-07-01] MEDS: dexmedetomidin/NS 400mcg/100ml 100 ML IV SCH ×6 (01:24→20:56)
[2017-07-01] MEDS: mineral oil/petrolatum ophthal oint EACHEYE SCH ×4 (02:00→20:05)
[2017-07-01] MEDS: insulin regular, human vial - multi-dose SQ SCH ×3 (02:19→21:07)
[2017-07-01] MEDS: ipratropium/albuterol 3ml nebule NEB SCH ×4 (02:49→20:51)
[2017-07-01] MEDS: cyclobenzaprine 10mg tablet PO PRN (04:47)
[2017-07-01 05:33] LABS: BASOPHILS % (AUTO) 0.1 % (0-1); EOSINOPHILS # (AUTO) 0.3 X10'3 (0-0.9); EOSINOPHILS % (AUTO) 2.1 % (0-6); HEMATOCRIT 25.7 % (35.0-45.0); HEMOGLOBIN 8.5 g/dl (12.0-16.0); LYMPHOCYTES # (AUTO) 1.1 X10'3 (1.1-4.8); LYMPHOCYTES % (AUTO) 8.1 % (21-51); MEAN CORPUSCULAR HEMOGLOBIN 28.3 PG (27.0-31.0); MEAN CORPUSCULAR VOLUME 85.8 FL (78-98); MEAN PLATELET VOLUME 10.6 FL (7.4-10.4); MONOCYTES # (AUTO) 0.6 X10'3 (0-0.9); MONOCYTES % (AUTO) 4.3 % (2-12); NEUTROPHILS # (AUTO) 11.5 X10'3 (1.8-7.7); NEUTROPHILS % (AUTO) 85.4 % (42-75); PLATELET COUNT 329 X10'3 (140-440); RED CELL DISTRIBUTION WIDTH 14.5 % (11.5-14.5); WHITE BLOOD COUNT 13.5 X10'3 (4.5-11.0)
[2017-07-01 06:03] LABS: ALANINE AMINOTRANSFERASE 17 U/L (12-78); ALBUMIN 1.9 G/DL (3.4-5.0); ALBUMIN/GLOBULIN RATIO 0.3 (1.1-1.5); ALKALINE PHOSPHATASE 101 IU/L (46-116); ANION GAP 9 (8-16); ASPARTATE AMINO TRANSFERASE 26 U/L (10-37); BILIRUBIN,TOTAL 0.4 MG/DL (0.1-1.0); BLOOD UREA NITROGEN 42 MG/DL (7-18); CALCIUM 8.3 MG/DL (8.5-10.1); CHLORIDE 106 MMOL/L (99-107); CREATININE 0.84 MG/DL (0.40-0.90); GLUCOSE 248 MG/DL (70-104); MAGNESIUM 2.6 MG/DL (1.5-2.4); PHOSPHORUS 3.4 MG/DL (2.3-4.5); POTASSIUM 3.6 MMOL/L (3.5-5.1); SODIUM 146 MMOL/L (135-145); TOTAL CARBON DIOXIDE 30.7 MMOL/L (24-32); TOTAL PROTEIN 7.4 G/DL (6.4-8.2); eGFR 69 ML/MIN
[2017-07-01 07:15] LABS: LARGE PLATELETS MODERATE; PLATELET ESTIMATE NORMAL; POLYCHROMASIA 1+
[2017-07-01 07:16] LABS: ROULEAUX 1+
[2017-07-01] MEDS: dextrose 5%-water 1,000 ML IV SCH (07:47)
[2017-07-01] MEDS: carvedilol 6.25mg tablet PO SCH ×2 (08:00→20:04)
[2017-07-01] MEDS: lactobacillus rhamnosus 10,000 MMU CELLS/CAPSULE PO SCH ×2 (08:30→20:04)
[2017-07-01] MEDS: methylPREDNISolone sod succ 125mg/2ml vial IV SCH ×3 (08:30→23:40)
[2017-07-01] MEDS: gabapentin 300mg capsule PO SCH ×2 (08:30→20:05)
[2017-07-01] MEDS: aspirin 325mg tablet PO SCH (08:31)
[2017-07-01] MEDS: clopidogrel 75mg tablet PO SCH (08:31)
[2017-07-01] MEDS: docusate sodium 100mg/10ml UD cup OGT SCH ×2 (08:32→20:04)
[2017-07-01] MEDS: enoxaparin 40mg/0.4ml syringe SUBCUT SCH (08:32)
[2017-07-01] MEDS: furosemide 40mg/4ml inj IV SCH ×2 (08:32→20:05)
[2017-07-01] MEDS: famotidine/PF 10 mg/ml inj IV SCH ×2 (11:20→20:04)
[2017-07-01] MEDS: morphine/NS 100mg/100ml bag 100 ML IV SCH (19:20)
[2017-07-01] MEDS: ALPRAZolam 0.5mg tablet PO SCH (20:04)
[2017-07-01] MEDS: losartan 50mg tablet PO SCH (20:04)
[2017-07-01] MEDS: polyethylene glycol 3350 17gm powd pack PO SCH (20:07)
[2017-07-01] MEDS: atorvastatin 20mg tablet PO SCH (20:08)
[2017-07-01] MEDS: potassium Cl oral solution 20 MEQ/15 ML PO SCH (20:08)
[2017-07-01] MEDS: insulin glargine (Lantus) pen - multi-dose SQ SCH (21:06)
[2017-07-02] VITALS (20 sets, daily range): BP systolic 118–165; BP diastolic 58–78
[2017-07-02] MEDS: ipratropium/albuterol 3ml nebule NEB SCH ×4 (02:19→20:52)
[2017-07-02] MEDS: insulin regular, human vial - multi-dose SQ SCH ×4 (02:25→20:39)
[2017-07-02] MEDS: traMADol 50MG tablet PO PRN (03:24)
[2017-07-02] MEDS: dextrose 5%-water 1,000 ML IV SCH (04:02)
[2017-07-02 04:21] LABS: BASOPHILS % (AUTO) 0 % (0-1); EOSINOPHILS # (AUTO) 0.2 X10'3 (0-0.9); EOSINOPHILS % (AUTO) 1.3 % (0-6); HEMATOCRIT 22.1 % (35.0-45.0); HEMOGLOBIN 7.3 g/dl (12.0-16.0); LYMPHOCYTES % (AUTO) 5.8 % (21-51); MEAN CORPUSCULAR HGB CONC 32.8 % (33.0-36.5); MEAN CORPUSCULAR VOLUME 85.3 FL (78-98); MEAN PLATELET VOLUME 10.7 FL (7.4-10.4); MONOCYTES # (AUTO) 0.3 X10'3 (0-0.9); NEUTROPHILS # (AUTO) 15.6 X10'3 (1.8-7.7); NEUTROPHILS % (AUTO) 90.9 % (42-75); PLATELET COUNT 380 X10'3 (140-440); RED BLOOD COUNT 2.59 X10'6 (4.20-5.60); RED CELL DISTRIBUTION WIDTH 14.6 % (11.5-14.5); WHITE BLOOD COUNT 17.1 X10'3 (4.5-11.0)
[2017-07-02 04:30] LABS: ALBUMIN 2.2 G/DL (3.4-5.0); ANION GAP 10 (8-16); BLOOD UREA NITROGEN 51 MG/DL (7-18); BUN/CREATININE RATIO 51.5 (6.6-38.0); CALCIUM 8.4 MG/DL (8.5-10.1); CHLORIDE 104 MMOL/L (99-107); CREATININE 0.99 MG/DL (0.40-0.90); GLUCOSE 227 MG/DL (70-104); MAGNESIUM 2.6 MG/DL (1.5-2.4); PHOSPHORUS 3.2 MG/DL (2.3-4.5); POTASSIUM 3.3 MMOL/L (3.5-5.1); SODIUM 144 MMOL/L (135-145); TOTAL CARBON DIOXIDE 29.7 MMOL/L (24-32); eGFR 57 ML/MIN
[2017-07-02 04:37] LABS: RHEUM FACTOR QUAL REFLEX TITER NEGATIVE (Neg)
[2017-07-02] MEDS: hydrALAZINE 20mg/ml inj. IV PRN (05:21)
[2017-07-02] MEDS ORDERED: potassium Cl 40MEQ/250ML bag 250 ML IV ONE (05:32)
[2017-07-02] MEDS: potassium Cl 40MEQ/250ML bag 250 ML IV PRN (05:54)
[2017-07-02 06:18] LABS: LARGE PLATELETS FEW; PLATELET ESTIMATE NORMAL
[2017-07-02] MEDS: dexmedetomidin/NS 400mcg/100ml 100 ML IV SCH ×4 (06:42→22:45)
[2017-07-02] MEDS: ondansetron/PF 4mg/2ml inj IV PRN (07:09)
[2017-07-02] MEDS: famotidine/PF 10 mg/ml inj IV SCH ×2 (08:00→20:10)
[2017-07-02] MEDS: metoclopramide 5 mg/ml inj IV PRN (09:46)
[2017-07-02] MEDS: furosemide 40mg/4ml inj IV SCH ×2 (09:46→20:10)
[2017-07-02] MEDS: methylPREDNISolone sod succ 125mg/2ml vial IV SCH ×2 (09:46→17:28)
[2017-07-02] MEDS: gabapentin 300mg capsule PO SCH ×2 (10:03→20:11)
[2017-07-02] MEDS: docusate sodium 100mg/10ml UD cup OGT SCH ×2 (10:03→20:11)
[2017-07-02] MEDS: carvedilol 6.25mg tablet PO SCH ×2 (10:03→20:10)
[2017-07-02] MEDS: lactobacillus rhamnosus 10,000 MMU CELLS/CAPSULE PO SCH ×2 (10:03→20:10)
[2017-07-02] MEDS: aspirin 325mg tablet PO SCH (10:03)
[2017-07-02] MEDS: clopidogrel 75mg tablet PO SCH (10:03)
[2017-07-02] MEDS: methylnaltrexone br 12mg/0.6ml inj***SubQ only SQ SCH (10:04)
[2017-07-02] MEDS: enoxaparin 40mg/0.4ml syringe SUBCUT SCH (10:05)
[2017-07-02] MEDS: atorvastatin 20mg tablet PO SCH (20:10)
[2017-07-02] MEDS: ALPRAZolam 0.5mg tablet PO SCH (20:10)
[2017-07-02] MEDS: potassium Cl oral solution 20 MEQ/15 ML PO SCH (20:10)
[2017-07-02] MEDS: losartan 50mg tablet PO SCH (20:11)
[2017-07-02] MEDS: polyethylene glycol 3350 17gm powd pack PO SCH (20:11)
[2017-07-02] MEDS: insulin glargine (Lantus) pen - multi-dose SQ SCH (20:37)
[2017-07-03] VITALS (14 sets, daily range): BP systolic 128–199; BP diastolic 67–92
[2017-07-03] MEDS: methylPREDNISolone sod succ 125mg/2ml vial IV SCH ×2 (00:21→08:17)
[2017-07-03] MEDS: dextrose 5%-water 1,000 ML IV SCH (03:10)
[2017-07-03] MEDS: ipratropium/albuterol 3ml nebule NEB SCH ×3 (03:12→15:08)
[2017-07-03 03:33] LABS: BASOPHILS % (AUTO) 0 % (0-1); EOSINOPHILS # (AUTO) 0.2 X10'3 (0-0.9); EOSINOPHILS % (AUTO) 1.6 % (0-6); HEMOGLOBIN 9.9 g/dl (12.0-16.0); LYMPHOCYTES # (AUTO) 1.1 X10'3 (1.1-4.8); LYMPHOCYTES % (AUTO) 8.7 % (21-51); MEAN CORPUSCULAR HEMOGLOBIN 28.3 PG (27.0-31.0); MEAN CORPUSCULAR VOLUME 85.7 FL (78-98); MEAN PLATELET VOLUME 10.1 FL (7.4-10.4); MONOCYTES # (AUTO) 0.6 X10'3 (0-0.9); MONOCYTES % (AUTO) 4.4 % (2-12); NEUTROPHILS # (AUTO) 11.1 X10'3 (1.8-7.7); NEUTROPHILS % (AUTO) 85.3 % (42-75); PLATELET COUNT 339 X10'3 (140-440); RED CELL DISTRIBUTION WIDTH 14.8 % (11.5-14.5)
[2017-07-03 03:44] LABS: ALBUMIN 2.3 G/DL (3.4-5.0); ANION GAP 7 (8-16); BLOOD UREA NITROGEN 44 MG/DL (7-18); BUN/CREATININE RATIO 49.4 (6.6-38.0); CALCIUM 8.3 MG/DL (8.5-10.1); CHLORIDE 103 MMOL/L (99-107); CREATININE 0.89 MG/DL (0.40-0.90); GLUCOSE 276 MG/DL (70-104); MAGNESIUM 2.7 MG/DL (1.5-2.4); POTASSIUM 4.3 MMOL/L (3.5-5.1); SODIUM 140 MMOL/L (135-145); TOTAL CARBON DIOXIDE 30.5 MMOL/L (24-32); eGFR 64 ML/MIN
[2017-07-03 07:03] LABS: PREALBUMIN 15.7 MG/DL (19-36)
[2017-07-03] MEDS: gabapentin 300mg capsule PO SCH (08:17)
[2017-07-03] MEDS: carvedilol 6.25mg tablet PO SCH (08:17)
[2017-07-03] MEDS: lactobacillus rhamnosus 10,000 MMU CELLS/CAPSULE PO SCH (08:17)
[2017-07-03] MEDS: aspirin 325mg tablet PO SCH (08:17)
[2017-07-03] MEDS: clopidogrel 75mg tablet PO SCH (08:17)
[2017-07-03] MEDS: docusate sodium 100mg/10ml UD cup OGT SCH (08:17)
[2017-07-03] MEDS: furosemide 40mg/4ml inj IV SCH (08:17)
[2017-07-03] MEDS: famotidine/PF 10 mg/ml inj IV SCH (08:18)
[2017-07-03] MEDS: enoxaparin 40mg/0.4ml syringe SUBCUT SCH (08:18)
[2017-07-03] MEDS: LORazepam 0.5 MG tablet PO PRN (08:23)
[2017-07-03] MEDS: ondansetron/PF 4mg/2ml inj IV PRN (08:23)
[2017-07-03] MEDS: insulin regular, human vial - multi-dose SQ SCH ×2 (09:12→15:14)
[2017-07-03] MEDS: morphine/NS 100mg/100ml bag 100 ML IV SCH (11:20)
[2017-07-03] MEDS ORDERED: INSU100V30 SQ (12:45)
[2017-07-03] MEDS ORDERED: LACT1CAP26 PO (12:45)
[2017-07-03] MEDS ORDERED: LANTUS SQ (12:45)
[2017-07-03] MEDS ORDERED: ENOX40DI11 SUBCUT (12:45)
[2017-07-03] MEDS ORDERED: GLUC1KIT2 SUBCUT (12:45)
[2017-07-03] MEDS ORDERED: CARV6.253 PO (12:45)
[2017-07-03] MEDS ORDERED: CLOP75TA35 PO (12:45)
[2017-07-03] MEDS ORDERED: ATOR20TA66 PO (12:45)
[2017-07-03] MEDS ORDERED: ASPI-1 PO (12:45)
[2017-07-03] MEDS ORDERED: ATI0.5T PO (12:45)
[2017-07-03] MEDS ORDERED: GABA300C PO (12:45)
[2017-07-03] MEDS ORDERED: TRAM50TA2 PO (12:45)
[2017-07-03] MEDS ORDERED: MAGN400O6 PO (12:45)
[2017-07-03] MEDS ORDERED: METH40VI32 IV (12:45)
[2017-07-03] MEDS ORDERED: HYDR-569 PO (12:45)
[2017-07-03] MEDS ORDERED: DOCU50LI22 OGT (12:45)
[2017-07-03] MEDS ORDERED: FURO40TA4 PO (12:45)
[2017-07-03] MEDS ORDERED: POLY17PO2 PO (12:45)
[2017-07-03] MEDS ORDERED: IPRA3AMP9 NEB ×2 (12:45)
[2017-07-03] MEDS ORDERED: hydrALAZINE 20mg/ml inj. IV ONE (13:05)
[2017-07-03] MEDS ORDERED: methylPREDNISolone sod succ/PF 40mg inj. IV SCH (16:00)
[2017-07-03] MEDS ORDERED: famotidine 20mg tablet PO SCH (20:00)
[2017-07-03] MEDS ORDERED: furosemide 40mg tablet PO SCH (20:00)
[2017-07-05 15:13] LABS: ATYPICAL PANCA <1:20 titer (Neg:<1:20); CYTOPLASMIC (C-ANCA) <1:20 titer (Neg:<1:20); PERINUCLEAR (P-ANCA) <1:20 titer (Neg:<1:20)
== END 2017-07-03 17:30 | DRG 246 ==
LOC: ER 16:23 → ED HOLD 19:25 → PCU 3S 06-09 16:57 → CICU 2S 06-12 13:13 → PCU 3S 06-14 19:20 → ICU 2S 06-16 08:02
PROVIDERS: ADMIT Family Medicine; ATTEND Internal Medicine Critical Care Medicine
PROC: 4A02XM4 Measurement of Cardiac Total Activity, External Approach (ICD-10-PCS; 2017-06-10)
PROC: 3E073KZ Introduction of Other Diagnostic Substance into Coronary Artery, Percutaneous Approach (ICD-10-PCS; 2017-06-10)
PROC: 027034Z Dilation of Coronary Artery, One Artery with Drug-eluting Intraluminal Device, Percutaneous Approach (ICD-10-PCS; 2017-06-12)
PROC: 02703ZZ Dilation of Coronary Artery, One Artery, Percutaneous Approach (ICD-10-PCS; 2017-06-12)
PROC: 4A023N8 Measurement of Cardiac Sampling and Pressure, Bilateral, Percutaneous Approach (ICD-10-PCS; 2017-06-12)
PROC: B2111ZZ Fluoroscopy of Multiple Coronary Arteries using Low Osmolar Contrast (ICD-10-PCS; 2017-06-12)
PROC: B2151ZZ Fluoroscopy of Left Heart using Low Osmolar Contrast (ICD-10-PCS; 2017-06-12)
PROC: BW251ZZ Computerized Tomography (CT Scan) of Chest, Abdomen and Pelvis using Low Osmolar Contrast (ICD-10-PCS; 2017-06-15)
PROC: 5A09457 Assistance with Respiratory Ventilation, 24-96 Consecutive Hours, Continuous Positive Airway Pressure (ICD-10-PCS; 2017-06-15)
PROC: 5A1955Z Respiratory Ventilation, Greater than 96 Consecutive Hours (ICD-10-PCS; principal; 2017-06-16)
PROC: 027236Z Dilation of Coronary Artery, Three Arteries with Three Drug-eluting Intraluminal Devices, Percutaneous Approach (ICD-10-PCS; 2017-06-16)
PROC: 0BH17EZ Insertion of Endotracheal Airway into Trachea, Via Natural or Artificial Opening (ICD-10-PCS; 2017-06-16)
PROC: 02HV33Z Insertion of Infusion Device into Superior Vena Cava, Percutaneous Approach (ICD-10-PCS; 2017-06-16)
PROC: 04HY32Z Insertion of Monitoring Device into Lower Artery, Percutaneous Approach (ICD-10-PCS; 2017-06-16)
PROC: B32T1ZZ Computerized Tomography (CT Scan) of Left Pulmonary Artery using Low Osmolar Contrast (ICD-10-PCS; 2017-06-22)
PROC: B3201ZZ Computerized Tomography (CT Scan) of Thoracic Aorta using Low Osmolar Contrast (ICD-10-PCS; 2017-06-22)
PROC: B32S1ZZ Computerized Tomography (CT Scan) of Right Pulmonary Artery using Low Osmolar Contrast (ICD-10-PCS; 2017-06-22)
PROC: 02HV33Z Insertion of Infusion Device into Superior Vena Cava, Percutaneous Approach (ICD-10-PCS; 2017-06-23)
PROC: B548ZZA Ultrasonography of Superior Vena Cava, Guidance (ICD-10-PCS; 2017-06-23)
PROC: 30233N1 Transfusion of Nonautologous Red Blood Cells into Peripheral Vein, Percutaneous Approach (ICD-10-PCS; 2017-06-26)
PROC: 5A09357 Assistance with Respiratory Ventilation, Less than 24 Consecutive Hours, Continuous Positive Airway Pressure (ICD-10-PCS; 2017-06-30)
DX: I25.10 Atherosclerotic heart disease of native coronary artery without angina pectoris (principal); J18.9 Pneumonia, unspecified organism; J96.01 Acute respiratory failure with hypoxia; Z99.11 Dependence on respirator [ventilator] status; A41.9 Sepsis, unspecified organism; I11.0 Hypertensive heart disease with heart failure; E11.40 Type 2 diabetes mellitus with diabetic neuropathy, unspecified; I50.32 Chronic diastolic (congestive) heart failure; I08.1 Rheumatic disorders of both mitral and tricuspid valves; K57.92 Diverticulitis of intestine, part unspecified, without perforation or abscess without bleeding; N39.0 Urinary tract infection, site not specified; R55 Syncope and collapse; E11.65 Type 2 diabetes mellitus with hyperglycemia; K21.9 Gastro-esophageal reflux disease without esophagitis; E78.5 Hyperlipidemia, unspecified; F41.1 Generalized anxiety disorder; G51.0 Bell's palsy; R63.0 Anorexia; K59.00 Constipation, unspecified; Z90.710 Acquired absence of both cervix and uterus; Z79.4 Long term (current) use of insulin; Z79.82 Long term (current) use of aspirin; Z79.899 Other long term (current) drug therapy; Z88.5 Allergy status to narcotic agent; Z88.8 Allergy status to other drugs, medicaments and biological substances; Z86.73 Personal history of transient ischemic attack (TIA), and cerebral infarction without residual deficits
CPT/HCPCS: 36569; 93306; 93460; 99285; C9600; C9601; 36415; 36600; 70450; 71045; 71250; 71260; 74018; 74176; 76604; 76937; 78452; 80048; 80053; 80061; 80305; 80320; 81001; 82550; 82803; 82810; 82948; 83036; 83540; 83550; 83605; 83690; 83735; 83880; 84100; 84132; 84134; 84145; 84443; 84484; 85014; 85018; 85025; 85027; 85347; 85651; 85730; 86038; 86140; 86256; 86430; 86713; 86885; 86900; 86901; 86920; 87040; 87070; 87077; 87088; 92616; 93005; 93017; 93458; 93880; 94002; 94003; 94640; 94660; 94668; 94760; 97110; 97116; 97162; 97530; 99152; 99153; A4315; A4620; A6213; A6257; A6258; A6449; A7015; A9500; C1725; C1751; C1758; C1769; C1874; C1894; J0280; J0360; J0456; J0780; J1170; J1250; J1644; J1650; J1815; J1885; J1940; J2001; J2020; J2060; J2212; J2250; J2270; J2405; J2543; J2765; J2785; J2920; J2930; J3010; J3246; J3480; J3490; J7030; J7042; J7060; J7070; P9016; Q9967

== ENCOUNTER 2017-07-26 16:13 | Observation (INO) | payer MEDICARE, MEDICAID ==
[~2017-07-26] VITALS: Ht 165.1 cm; Wt 67.3 kg
[~2017-07-26 16:13] MED LIST changes: -ALPR0.5T9 PO; -AMLO10TA PO; +ASPI-1 PO; +ATI0.5T PO; +ATOR20TA66 PO; -CANA300T PO; +CARV6.253 PO; -CIPR-259 PO; +CLOP75TA35 PO; +DEXL60CA3 PO; -DOCU-28 PO; +DOCU50LI22 OGT; +ENOX40DI11 SUBCUT; +FURO40TA4 PO; +GABA300C PO; -GABA600T PO; +GLUC1KIT2 SUBCUT; -HYDR-3965 PO; +HYDR-569 PO; -INSU100I9 SQ; +INSU100V30 SQ; +IPRA3AMP9 NEB; -KETO10TA2 PO; +LACT1CAP26 PO; +LANTUS SQ; -LANTUS SUBCUT; +MAGN400O6 PO; +METH40VI32 IV; -METR500T4 PO; -ONDA4TAB12 PO; +POLY17PO2 PO; -POTA8TAB8 PO; +TRAM50TA2 PO; -etomidate 2mg/ml inj. ONE
[2017-07-26] MEDS ORDERED: ondansetron/PF 4mg/2ml inj IV ONE (16:20)
[2017-07-26] MEDS ORDERED: normal saline 1000ML IV soln IVB ONE (16:20)
[2017-07-26] MEDS ORDERED: aspirin 81mg tab.chew PO ONE (16:20)
[2017-07-26 16:37] LABS: BASOPHILS # (AUTO) 0.1 X10'3 (0-0.2); EOSINOPHILS # (AUTO) 0.2 X10'3 (0-0.9); EOSINOPHILS % (AUTO) 2.3 % (0-6); HEMATOCRIT 33.8 % (35.0-45.0); HEMOGLOBIN 11.3 g/dl (12.0-16.0); LYMPHOCYTES # (AUTO) 2.3 X10'3 (1.1-4.8); LYMPHOCYTES % (AUTO) 24.6 % (21-51); MEAN CORPUSCULAR HGB CONC 33.4 % (33.0-36.5); MEAN CORPUSCULAR VOLUME 86.7 FL (78-98); MEAN PLATELET VOLUME 9.5 FL (7.4-10.4); MONOCYTES # (AUTO) 0.9 X10'3 (0-0.9); MONOCYTES % (AUTO) 8.9 % (2-12); NEUTROPHILS % (AUTO) 63.2 % (42-75); PLATELET COUNT 155 X10'3 (140-440); RED BLOOD COUNT 3.89 X10'6 (4.20-5.60); RED CELL DISTRIBUTION WIDTH 17.7 % (11.5-14.5); WHITE BLOOD COUNT 9.5 X10'3 (4.5-11.0)
[2017-07-26] MEDS ORDERED: ondansetron 4mg rapidly disintigrating tab PO ONE (16:45)
[2017-07-26 16:46] LABS: PROTHROMBIN TIME 10.7 SECONDS (9.0-12.0)
[2017-07-26] MEDS ORDERED: morphine 4 MG/ML inj SYRINge IV ONE (16:50)
[2017-07-26 16:58] LABS: ALANINE AMINOTRANSFERASE 42 U/L (12-78); ALBUMIN 3.4 G/DL (3.4-5.0); ALBUMIN/GLOBULIN RATIO 0.9 (1.1-1.5); ALKALINE PHOSPHATASE 78 IU/L (46-116); ANION GAP 8 (8-16); ASPARTATE AMINO TRANSFERASE 25 U/L (10-37); BILIRUBIN,TOTAL 0.5 MG/DL (0.1-1.0); BLOOD UREA NITROGEN 15 MG/DL (7-18); BUN/CREATININE RATIO 21.1 (6.6-38.0); CALCIUM 9.2 MG/DL (8.5-10.1); CHLORIDE 107 MMOL/L (99-107); CREATININE 0.71 MG/DL (0.40-0.90); GLUCOSE 120 MG/DL (70-104); SODIUM 144 MMOL/L (135-145); TOTAL CARBON DIOXIDE 28.7 MMOL/L (24-32); TOTAL PROTEIN 7.1 G/DL (6.4-8.2); eGFR 83 ML/MIN
[2017-07-26] MEDS ORDERED: METF500T PO ×2 (20:03)
[2017-07-26] MEDS ORDERED: VALS40TA2 PO (20:03)
[2017-07-26] MEDS ORDERED: HYDR-569 PO (20:03)
[2017-07-26] MEDS ORDERED: CLOP75TA15 PO (20:03)
[2017-07-26] MEDS ORDERED: SITA50TA PO (20:03)
[2017-07-26] MEDS ORDERED: GABA600T2 PO (20:03)
[2017-07-26] MEDS ORDERED: ondansetron/PF 4mg/2ml inj IV PRN (20:15)
[2017-07-26] MEDS ORDERED: HYDROcodone/acetaminophen 5mg/325mg tablet PO PRN (20:15)
[2017-07-26] MEDS ORDERED: magnesium Cl slow-release 64mg tablet PO PRN (20:15)
[2017-07-26] MEDS ORDERED: potassium Cl 40MEQ/NS 500ml 500 ML IV PRN ×2 (20:15)
[2017-07-26] MEDS ORDERED: magnesium 4gm in 100ml NS 100 ML IV PRN (20:15)
[2017-07-26] MEDS ORDERED: potassium Cl 20 mEq SR tablet PO PRN ×2 (20:15)
[2017-07-26] MEDS ORDERED: magnesium 2GM in 50ml NS 50 ML IV PRN (20:15)
[2017-07-26] MEDS ORDERED: mag hydrox/Alum hydrox/simeth 30ml oral suspension PO PRN (20:15)
[2017-07-26] MEDS ORDERED: non-formulary drug (Ondansetron (Zofran Odt) 8 MG) PO PRN (20:15)
[2017-07-26] MEDS ORDERED: dextrose 50%-water 50ml dispensing syringe IV PRN ×2 (20:20)
[2017-07-26] MEDS ORDERED: insulin Lispro (HumaLOG) vial - multi-dose SQ SCH (20:20)
[2017-07-26] MEDS ORDERED: glucagon, human recombinant 1mg kit SUBCUT PRN (20:20)
[2017-07-26] MEDS ORDERED: MESSAGE TO PHARMACY PO ONE (20:20)
[2017-07-26] MEDS ORDERED: dextrose ORAL solution 15 GM/59 ML bottle PO PRN ×2 (20:20)
[2017-07-26] MEDS ORDERED: ondansetron 4mg rapidly disintigrating tab PO PRN ×3 (20:30)
[2017-07-26] MEDS: normal saline 1000ml 1,000 ML IV SCH (20:41)
[2017-07-26] MEDS ORDERED: insulin glargine (Lantus) pen - multi-dose SQ SCH (21:00)
[2017-07-26] MEDS: valsartan 80mg tablet PO SCH (21:10)
[2017-07-26] MEDS: clopidogrel 75mg tablet PO SCH (21:10)
[2017-07-26] MEDS: atorvastatin 20mg tablet PO SCH (21:10)
[2017-07-26] MEDS: LORazepam 0.5 MG tablet PO PRN (21:16)
[2017-07-27] MEDS ORDERED: ketorolac tromethamine 15mg/ml inj. IV ONE (02:30)
[2017-07-27 06:32] LABS: BASOPHILS % (AUTO) 0.4 % (0-1); EOSINOPHILS # (AUTO) 0.4 X10'3 (0-0.9); EOSINOPHILS % (AUTO) 4.3 % (0-6); HEMATOCRIT 31.5 % (35.0-45.0); HEMOGLOBIN 10.7 g/dl (12.0-16.0); LYMPHOCYTES # (AUTO) 2.3 X10'3 (1.1-4.8); LYMPHOCYTES % (AUTO) 26.3 % (21-51); MEAN CORPUSCULAR HEMOGLOBIN 28.8 PG (27.0-31.0); MEAN CORPUSCULAR VOLUME 84.7 FL (78-98); MEAN PLATELET VOLUME 9.2 FL (7.4-10.4); MONOCYTES # (AUTO) 0.8 X10'3 (0-0.9); MONOCYTES % (AUTO) 9.2 % (2-12); NEUTROPHILS # (AUTO) 5.1 X10'3 (1.8-7.7); NEUTROPHILS % (AUTO) 59.8 % (42-75); PLATELET COUNT 133 X10'3 (140-440); RED BLOOD COUNT 3.71 X10'6 (4.20-5.60); RED CELL DISTRIBUTION WIDTH 16.9 % (11.5-14.5); WHITE BLOOD COUNT 8.6 X10'3 (4.5-11.0)
[2017-07-27 06:35] LABS: ANION GAP 8 (8-16); BLOOD UREA NITROGEN 11 MG/DL (7-18); CALCIUM 8.7 MG/DL (8.5-10.1); CHLORIDE 109 MMOL/L (99-107); GLUCOSE 135 MG/DL (70-104); MAGNESIUM 1.7 MG/DL (1.5-2.4); POTASSIUM 4.1 MMOL/L (3.5-5.1); SODIUM 144 MMOL/L (135-145); TOTAL CARBON DIOXIDE 27.4 MMOL/L (24-32); eGFR > 90 ML/MIN
[2017-07-27] MEDS: K and/or MAG REPLACEMENT MC SCH (07:42)
[2017-07-27] MEDS ORDERED: carVEDilol 3.125mg tablet PO SCH (08:00)
[2017-07-27] MEDS: aspirin 325mg tablet PO SCH (08:01)
[2017-07-27] MEDS ORDERED: LANTUS SQ (09:02)
[2017-07-27] MEDS ORDERED: MESSAGE TO PHARMACY PO ONE (09:15)
[2017-07-27] MEDS ORDERED: insulin regular, human vial - multi-dose SQ SCH (09:15)
[2017-07-27] MEDS ORDERED: glucagon, human recombinant 1mg kit SUBCUT PRN (09:15)
[2017-07-27] MEDS ORDERED: dextrose 50%-water 50ml dispensing syringe IV PRN ×2 (09:15)
[2017-07-27] MEDS ORDERED: ipratropium/albuterol 3ml nebule NEB PRN (09:15)
[2017-07-27] MEDS ORDERED: dextrose ORAL solution 15 GM/59 ML bottle PO PRN ×2 (09:15)
[2017-07-27] MEDS: gabapentin 300mg capsule PO SCH ×3 (10:00→20:29)
[2017-07-27] MEDS: acetaminophen 325mg tablet PO PRN (11:58)
[2017-07-27] MEDS: normal saline 1000ml 1,000 ML IV SCH (14:24)
[2017-07-27 14:42] VITALS: BP_SYST 154; BP_SYST 167; BP_SYST 171; BP_DIAS 82; BP_DIAS 87; BP_DIAS 90
[2017-07-27 14:44] VITALS: BP 154/82
[2017-07-27] MEDS: ipratropium/albuterol 3ml nebule NEB SCH ×2 (15:00→21:00)
[2017-07-27] MEDS ORDERED: LORazepam 2 mg/ml vial IV PRN (15:40)
[2017-07-27] MEDS: magnesium hydroxide 30ml (MOM) UD suspension PO PRN (16:26)
[2017-07-27] MEDS ORDERED: LORazepam 2 mg/ml vial IV STA (17:03)
[2017-07-27] MEDS: insulin Lispro (HumaLOG) vial - multi-dose SQ SCH ×2 (19:15→21:10)
[2017-07-27] MEDS ORDERED: ROSU20TA PO (19:51)
[2017-07-27] MEDS: valsartan 80mg tablet PO SCH (20:28)
[2017-07-27] MEDS: carvedilol 6.25mg tablet PO SCH (20:28)
[2017-07-27] MEDS: clopidogrel 75mg tablet PO SCH (20:28)
[2017-07-27] MEDS: atorvastatin 20mg tablet PO SCH (20:29)
[2017-07-27] MEDS: insulin glargine (Lantus) pen - multi-dose SQ SCH ×2 (20:55→21:29)
[2017-07-27 22:00] VITALS: BP 155/75
[2017-07-28] VITALS (31 sets, daily range): BP systolic 106–182; BP diastolic 38–101
[2017-07-28] MEDS: ipratropium/albuterol 3ml nebule NEB SCH ×2 (03:00→08:41)
[2017-07-28 05:53] LABS: BASOPHILS % (AUTO) 0.5 % (0-1); EOSINOPHILS # (AUTO) 0.2 X10'3 (0-0.9); EOSINOPHILS % (AUTO) 2.8 % (0-6); LYMPHOCYTES # (AUTO) 1.5 X10'3 (1.1-4.8); LYMPHOCYTES % (AUTO) 20.4 % (21-51); MEAN CORPUSCULAR HEMOGLOBIN 28.7 PG (27.0-31.0); MEAN CORPUSCULAR HGB CONC 33.4 % (33.0-36.5); MEAN CORPUSCULAR VOLUME 85.9 FL (78-98); MEAN PLATELET VOLUME 9.2 FL (7.4-10.4); MONOCYTES # (AUTO) 0.6 X10'3 (0-0.9); MONOCYTES % (AUTO) 8.3 % (2-12); NEUTROPHILS # (AUTO) 5.1 X10'3 (1.8-7.7); PLATELET COUNT 135 X10'3 (140-440); RED BLOOD COUNT 3.84 X10'6 (4.20-5.60); WHITE BLOOD COUNT 7.6 X10'3 (4.5-11.0)
[2017-07-28 06:46] LABS: % IRON SATURATION 21 % (11-46); IRON 56 UG/DL (49-151); TOTAL IRON BINDING CAPACITY 269 UG/DL (259-388)
[2017-07-28 07:00] LABS: ALBUMIN 3.1 G/DL (3.4-5.0); ANION GAP 6 (8-16); BLOOD UREA NITROGEN 12 MG/DL (7-18); BUN/CREATININE RATIO 24.5 (6.6-38.0); CALCIUM 8.7 MG/DL (8.5-10.1); CHLORIDE 105 MMOL/L (99-107); CREATININE 0.49 MG/DL (0.40-0.90); FERRITIN 120 NG/ML (8-252); GLUCOSE 295 MG/DL (70-104); MAGNESIUM 1.8 MG/DL (1.5-2.4); POTASSIUM 4.4 MMOL/L (3.5-5.1); SODIUM 140 MMOL/L (135-145); TOTAL CARBON DIOXIDE 28.6 MMOL/L (24-32); eGFR > 90 ML/MIN
[2017-07-28] MEDS: K and/or MAG REPLACEMENT MC SCH (07:59)
[2017-07-28] MEDS ORDERED: valsartan 80mg tablet PO PRN (08:30)
[2017-07-28] MEDS: carvedilol 6.25mg tablet PO SCH ×2 (08:51→20:58)
[2017-07-28] MEDS: pantoprazole 40mg Tablet.DR PO SCH (08:51)
[2017-07-28] MEDS: gabapentin 300mg capsule PO SCH ×3 (08:51→20:58)
[2017-07-28] MEDS: aspirin 325mg tablet PO SCH (08:51)
[2017-07-28] MEDS: enoxaparin 40mg/0.4ml syringe SUBCUT SCH (08:52)
[2017-07-28] MEDS: insulin Lispro (HumaLOG) vial - multi-dose SQ SCH ×4 (09:01→21:13)
[2017-07-28] MEDS ORDERED: hydrALAZINE 20mg/ml inj. IV PRN (09:50)
[2017-07-28] MEDS ORDERED: insulin glargine (Lantus) pen - multi-dose SQ ONE (10:20)
[2017-07-28] MEDS: magnesium hydroxide 30ml (MOM) UD suspension PO PRN (11:46)
[2017-07-28] MEDS: normal saline 1000ml 1,000 ML IV SCH (12:14)
[2017-07-28 13:52] LABS: OCCULT BLOOD STOOL NEGATIVE (Neg)
[2017-07-28] MEDS ORDERED: meclizine 12.5mg tablet PO PRN (16:45)
[2017-07-28] MEDS: clopidogrel 75mg tablet PO SCH (20:58)
[2017-07-28] MEDS: valsartan 80mg tablet PO SCH (20:58)
[2017-07-28] MEDS: atorvastatin 20mg tablet PO SCH (20:59)
[2017-07-28] MEDS: LORazepam 0.5 MG tablet PO PRN (21:06)
[2017-07-28] MEDS: insulin glargine (Lantus) pen - multi-dose SQ SCH (21:10)
[2017-07-29 02:00] VITALS: BP 140/75
[2017-07-29] MEDS: magnesium hydroxide 30ml (MOM) UD suspension PO PRN (05:28)
[2017-07-29 06:00] VITALS: BP 166/84
[2017-07-29 07:16] LABS: BASOPHILS % (AUTO) 0.5 % (0-1); EOSINOPHILS # (AUTO) 0.2 X10'3 (0-0.9); EOSINOPHILS % (AUTO) 3.2 % (0-6); HEMATOCRIT 32.6 % (35.0-45.0); HEMOGLOBIN 10.9 g/dl (12.0-16.0); LYMPHOCYTES % (AUTO) 27.3 % (21-51); MEAN CORPUSCULAR HEMOGLOBIN 28.8 PG (27.0-31.0); MEAN CORPUSCULAR HGB CONC 33.4 % (33.0-36.5); MEAN CORPUSCULAR VOLUME 86.3 FL (78-98); MEAN PLATELET VOLUME 9.7 FL (7.4-10.4); MONOCYTES # (AUTO) 0.6 X10'3 (0-0.9); MONOCYTES % (AUTO) 7.8 % (2-12); NEUTROPHILS # (AUTO) 4.4 X10'3 (1.8-7.7); NEUTROPHILS % (AUTO) 61.2 % (42-75); PLATELET COUNT 148 X10'3 (140-440); RED BLOOD COUNT 3.78 X10'6 (4.20-5.60); RED CELL DISTRIBUTION WIDTH 16.5 % (11.5-14.5); WHITE BLOOD COUNT 7.2 X10'3 (4.5-11.0)
[2017-07-29 07:45] LABS: ALBUMIN 3.2 G/DL (3.4-5.0); ANION GAP 7 (8-16); BLOOD UREA NITROGEN 14 MG/DL (7-18); BUN/CREATININE RATIO 23.7 (6.6-38.0); CALCIUM 8.8 MG/DL (8.5-10.1); CHLORIDE 104 MMOL/L (99-107); CREATININE 0.59 MG/DL (0.40-0.90); GLUCOSE 270 MG/DL (70-104); MAGNESIUM 1.8 MG/DL (1.5-2.4); POTASSIUM 4.1 MMOL/L (3.5-5.1); SODIUM 140 MMOL/L (135-145); TOTAL CARBON DIOXIDE 28.8 MMOL/L (24-32); eGFR > 90 ML/MIN
[2017-07-29] MEDS: enoxaparin 40mg/0.4ml syringe SUBCUT SCH (08:21)
[2017-07-29] MEDS: carvedilol 6.25mg tablet PO SCH (08:22)
[2017-07-29] MEDS: pantoprazole 40mg Tablet.DR PO SCH (08:22)
[2017-07-29] MEDS: gabapentin 300mg capsule PO SCH (08:22)
[2017-07-29] MEDS: aspirin 325mg tablet PO SCH (08:22)
[2017-07-29] MEDS: insulin glargine (Lantus) pen - multi-dose SQ SCH (08:32)
[2017-07-29] MEDS: acetaminophen 325mg tablet PO PRN (08:34)
[2017-07-29] MEDS: insulin Lispro (HumaLOG) vial - multi-dose SQ SCH ×2 (08:42→13:27)
[2017-07-29 10:00] VITALS: BP 132/66
[2017-07-29] MEDS ORDERED: MECL12.584 PO (12:20)
[2017-07-29] MEDS ORDERED: PANT40TA4 PO (12:20)
[2017-07-29] MEDS ORDERED: ROSU20TA PO (12:20)
== END 2017-07-29 13:40 | disposition home or self-care (01) ==
LOC: ER 16:13 → ED HOLD 20:14 → EDBEDREQ 07-27 12:54 → ORTHO 4S 07-27 14:06
PROVIDERS: ADMIT Family Medicine; ATTEND Family Medicine
DX: R07.89 Other chest pain (principal); R55 Syncope and collapse; I10 Essential (primary) hypertension; E78.5 Hyperlipidemia, unspecified; E11.40 Type 2 diabetes mellitus with diabetic neuropathy, unspecified; D64.9 Anemia, unspecified; G89.4 Chronic pain syndrome; I25.110 Atherosclerotic heart disease of native coronary artery with unstable angina pectoris; J44.9 Chronic obstructive pulmonary disease, unspecified; Z79.4 Long term (current) use of insulin; Z86.73 Personal history of transient ischemic attack (TIA), and cerebral infarction without residual deficits; Z95.5 Presence of coronary angioplasty implant and graft; Z90.710 Acquired absence of both cervix and uterus; Z82.5 Family history of asthma and other chronic lower respiratory diseases; Z83.3 Family history of diabetes mellitus
CPT/HCPCS: 36415; 70551; 71045; 80048; 80053; 82272; 82607; 82728; 82746; 82948; 83036; 83540; 83550; 83735; 83880; 84443; 84484; 85025; 85610; 87070; 87088; 93005; 93660; 94760; 96361; 96372; 96374; 96375; 96376; 97116; 97161; 97530; 99285; G0378; J1650; J1815; J1885; J2060; J7030; J2270

== ENCOUNTER 2017-08-16 19:22 | Emergency (ER) | payer MEDICARE, MEDICAID ==
[~2017-08-16] VITALS: Ht 167.6 cm; Wt 67.0 kg
[~2017-08-16 19:22] MED LIST changes: -ACYC400T PO; -ATOR20TA66 PO; +CLOP75TA15 PO; -CLOP75TA35 PO; -DEXL60CA3 PO; -DOCU50LI22 OGT; -ENOX40DI11 SUBCUT; -FURO40TA4 PO; -GABA300C PO; +GABA600T2 PO; -GLUC1KIT2 SUBCUT; -INSU100V30 SQ; -IRBE300T19 PO; -LACT1CAP26 PO; -MAGN400O6 PO; +MECL12.584 PO; +METF500T PO; -METH40VI32 IV; +PANT40TA4 PO; -POLY17PO2 PO; +ROSU20TA PO; +SITA50TA PO; -TRAM50TA2 PO; +VALS40TA2 PO
[2017-08-16] MEDS ORDERED: LIDOcaine 1.5% w/epinephrine 1:200,000 5ml ampul IJ ONE (20:30)
[2017-08-16] MEDS ORDERED: ibuprofen 200mg tablet PO ONE (21:00)
[2017-08-16 22:06] VITALS: BP 138/78
== END 2017-08-16 22:07 | disposition home or self-care (01) ==
LOC: ER 19:23
DX: S01.81XA Laceration without foreign body of other part of head, initial encounter (principal); S40.022A Contusion of left upper arm, initial encounter; S20.219A Contusion of unspecified front wall of thorax, initial encounter; S80.11XA Contusion of right lower leg, initial encounter; I25.10 Atherosclerotic heart disease of native coronary artery without angina pectoris; I10 Essential (primary) hypertension; E11.9 Type 2 diabetes mellitus without complications; Z86.73 Personal history of transient ischemic attack (TIA), and cerebral infarction without residual deficits; Z90.49 Acquired absence of other specified parts of digestive tract; Z90.710 Acquired absence of both cervix and uterus; Z98.890 Other specified postprocedural states; Z98.62 Peripheral vascular angioplasty status; Z56.0 Unemployment, unspecified; Z88.5 Allergy status to narcotic agent; Z88.8 Allergy status to other drugs, medicaments and biological substances; Z79.4 Long term (current) use of insulin; Z79.82 Long term (current) use of aspirin; Z79.84 Long term (current) use of oral hypoglycemic drugs; Z79.899 Other long term (current) drug therapy; W01.0XXA Fall on same level from slipping, tripping and stumbling without subsequent striking against object, initial encounter; Y93.89 Activity, other specified; Y92.89 Other specified places as the place of occurrence of the external cause; Y99.8 Other external cause status
CPT/HCPCS: 12011; 70450; 71045; 72125; 73090; 99284; J3490

== ENCOUNTER 2018-06-04 07:30 | Day surgery (SDC) | payer MEDICARE, MEDICAID ==
[2018-06-01 15:52] LABS: BASOPHILS # (AUTO) 0.1 X10'3 (0-0.2); BASOPHILS % (AUTO) 1.4 % (0-1); EOSINOPHILS # (AUTO) 0.2 X10'3 (0-0.9); EOSINOPHILS % (AUTO) 1.7 % (0-6); HEMOGLOBIN 13.1 g/dl (12.0-16.0); LYMPHOCYTES # (AUTO) 2.2 X10'3 (1.1-4.8); LYMPHOCYTES % (AUTO) 23.9 % (21-51); MEAN CORPUSCULAR HEMOGLOBIN 27.3 PG (27.0-31.0); MEAN CORPUSCULAR VOLUME 85.2 FL (78-98); MEAN PLATELET VOLUME 10.4 FL (7.4-10.4); MONOCYTES # (AUTO) 0.7 X10'3 (0-0.9); MONOCYTES % (AUTO) 7.8 % (2-12); NEUTROPHILS % (AUTO) 65.2 % (42-75); PLATELET COUNT 141 X10'3 (140-440); RED BLOOD COUNT 4.81 X10'6 (4.20-5.60); RED CELL DISTRIBUTION WIDTH 14.3 % (11.5-14.5); WHITE BLOOD COUNT 9.2 X10'3 (4.5-11.0)
[2018-06-01 16:04] LABS: ALBUMIN 3.6 G/DL (3.4-5.0); ANION GAP 7 (8-16); BLOOD UREA NITROGEN 19 MG/DL (7-18); BUN/CREATININE RATIO 22.4 (6.6-38.0); CALCIUM 9.1 MG/DL (8.5-10.1); CHLORIDE 95 MMOL/L (99-107); CREATININE 0.85 MG/DL (0.40-0.90); POTASSIUM 4.9 MMOL/L (3.5-5.1); SODIUM 131 MMOL/L (135-145); TOTAL CARBON DIOXIDE 28.7 MMOL/L (24-32); eGFR 68 ML/MIN
[2018-06-01 16:44] LABS: INR 1.1 INR; PARTIAL THROMBOPLASTIN TIME 28 SECONDS (22-32); PROTHROMBIN TIME 10.7 SECONDS (9.0-12.0)
[2018-06-01 18:14] LABS: GLUCOSE 581 MG/DL (70-104)
[2018-06-04] VITALS (14 sets, daily range): BP systolic 92–174; BP diastolic 47–102
[~2018-06-04] VITALS: Ht 165.1 cm; Wt 84.6 kg
[~2018-06-04 07:30] MED LIST changes: -ASPI-1 PO; +ASPI-1265 PO; -CARV6.253 PO; +COR3.125T PO; +DEXL30CA3 PO; +FLUO40CA10 PO; +GABA600T13 PO; -GABA600T2 PO; -HYDR-569 PO; +INSU100I9 SQ; +LOSA50TA64 PO; -MECL12.584 PO; -PANT40TA4 PO; -ROSU20TA PO; -VALS40TA2 PO
[2018-06-04] MEDS ORDERED: LORazepam 0.5 MG tablet PO PRN ×2 (08:05→16:10)
[2018-06-04] MEDS ORDERED: diphenhydrAMINE 25mg capsule PO PRN (08:05)
[2018-06-04] MEDS ORDERED: CARV6.253 PO (08:22)
[2018-06-04] MEDS ORDERED: ACYC-202 PO (08:22)
[2018-06-04] MEDS ORDERED: MAGN100T5 PO (08:22)
[2018-06-04] MEDS ORDERED: INSU100V10 SQ (08:22)
[2018-06-04] MEDS ORDERED: ROSU20TA PO (08:22)
[2018-06-04] MEDS ORDERED: POTA8TAB3 PO (08:22)
[2018-06-04] MEDS ORDERED: MULT-933 PO (08:22)
[2018-06-04] MEDS: normal saline 1000ml 1,000 ML IV SCH ×2 (08:59→13:33)
[2018-06-04] MEDS ORDERED: fentaNYL/PF 50MCG/1 ML 2ML syringe ONE (09:24)
[2018-06-04] MEDS ORDERED: LIDOcaine 1% (10mg/ml)w/preservative injection 20ml MDV ONE (09:25)
[2018-06-04] MEDS ORDERED: nitroGLYCERIN-Tridil 50MG/D5W 250 ML IV ONE (09:25)
[2018-06-04] MEDS ORDERED: heparin 1,000unit/ml 10ml vial 10 ML ONE (09:25)
[2018-06-04] MEDS ORDERED: iohexol 350 MG/ML 50ML vial IV ONE (09:25)
[2018-06-04] MEDS ORDERED: midazolam 2 mg/2 ml injection ONE ×2 (09:25→10:46)
[2018-06-04] MEDS ORDERED: iohexol 350MG/ML 100ml bottle IV ONE ×2 (09:25→10:26)
[2018-06-04] MEDS ORDERED: heparin 25,000 UNIT/250ml bag 250 ML IV ONE (10:31)
[2018-06-04] MEDS ORDERED: clopidogrel 300mg tablet ONE (10:48)
[2018-06-04] MEDS ORDERED: dextrose 50%-water 50ml dispensing syringe IV PRN ×2 (11:45)
[2018-06-04] MEDS ORDERED: MESSAGE TO PHARMACY PO ONE (11:45)
[2018-06-04] MEDS ORDERED: dextrose ORAL solution 15 GM/59 ML bottle PO PRN ×2 (11:45)
[2018-06-04] MEDS ORDERED: glucagon, human recombinant 1mg kit SUBCUT PRN (11:45)
[2018-06-04] MEDS ORDERED: HYDROmorphone 2mg/ml vial IV PRN (11:45)
[2018-06-04] MEDS ORDERED: ibuprofen tablet 400 MG TABLET PO SCH (11:45)
[2018-06-04] MEDS: ibuprofen 200mg tablet PO SCH (12:28)
[2018-06-04] MEDS: HYDROmorphone inj. 0.5 MG/0.5 ML DISP.SYRIN IV PRN ×2 (13:51→22:20)
[2018-06-04] MEDS: ondansetron/PF 4mg/2ml inj IV PRN ×2 (13:51→22:16)
[2018-06-04] MEDS ORDERED: FLUO20CA22 PO (15:51)
[2018-06-04] MEDS ORDERED: SITA50TA PO (15:51)
[2018-06-04] MEDS ORDERED: LOSA100T57 PO (15:51)
[2018-06-04] MEDS ORDERED: ipratropium/albuterol 3ml nebule NEB PRN (16:10)
[2018-06-04] MEDS ORDERED: INSULIN GLULISINE 20 UNIT SQ SCH (17:30)
--- NOTE | 2018-06-04 17:30 | NUR ---
Problems reprioritized. Patient report given, questions answered & plan of care reviewed with Sanjay MOSLEY .
[2018-06-04] MEDS ORDERED: insulin glargine (Lantus) pen - multi-dose SQ SCH ×2 (20:00→21:00)
[2018-06-04] MEDS: carvedilol 6.25mg tablet PO SCH (20:13)
[2018-06-04] MEDS ORDERED: clopidogrel 75mg tablet PO SCH (21:00)
[2018-06-04] MEDS: insulin Lispro (HumaLOG) vial - multi-dose SQ SCH (21:24)
[2018-06-04] MEDS: gabapentin 300mg capsule PO SCH (21:27)
[2018-06-05] MEDS: ibuprofen 200mg tablet PO SCH (00:29)
[2018-06-05 03:00] VITALS: BP 130/72
[2018-06-05] MEDS: normal saline 1000ml 1,000 ML IV SCH (04:05)
[2018-06-05 05:13] LABS: BASOPHILS % (AUTO) 0.7 % (0-1); EOSINOPHILS # (AUTO) 0.1 X10'3 (0-0.9); HEMATOCRIT 34.1 % (35.0-45.0); HEMOGLOBIN 11.5 g/dl (12.0-16.0); LYMPHOCYTES % (AUTO) 29.8 % (21-51); MEAN CORPUSCULAR HEMOGLOBIN 28.4 PG (27.0-31.0); MEAN CORPUSCULAR HGB CONC 33.7 g/dL (33.0-36.5); MEAN CORPUSCULAR VOLUME 84.3 FL (78-98); MEAN PLATELET VOLUME 9.9 FL (7.4-10.4); MONOCYTES # (AUTO) 0.8 X10'3 (0-0.9); MONOCYTES % (AUTO) 11.7 % (2-12); NEUTROPHILS # (AUTO) 3.8 X10'3 (1.8-7.7); NEUTROPHILS % (AUTO) 55.8 % (42-75); PLATELET COUNT 119 X10'3 (140-440); RED BLOOD COUNT 4.05 X10'6 (4.20-5.60); RED CELL DISTRIBUTION WIDTH 14.4 % (11.5-14.5); WHITE BLOOD COUNT 6.8 X10'3 (4.5-11.0)
[2018-06-05 05:22] LABS: ALBUMIN 3.1 G/DL (3.4-5.0); ANION GAP 4 (8-16); BLOOD UREA NITROGEN 15 MG/DL (7-18); BUN/CREATININE RATIO 21.4 (6.6-38.0); CALCIUM 8.8 MG/DL (8.5-10.1); CHLORIDE 106 MMOL/L (99-107); GLUCOSE 219 MG/DL (70-104); POTASSIUM 4.5 MMOL/L (3.5-5.1); SODIUM 139 MMOL/L (135-145); TOTAL CARBON DIOXIDE 28.9 MMOL/L (24-32); eGFR 85 ML/MIN
--- NOTE | 2018-06-05 06:31 | NUR ---
Problems reprioritized. Patient report given, questions answered & plan of care reviewed with Arlene STARK.
[2018-06-05 06:52] VITALS: BP 140/72
[2018-06-05] MEDS ORDERED: ROSU40TA PO (06:59)
[2018-06-05] MEDS ORDERED: ASPI-1264 PO (06:59)
[2018-06-05] MEDS ORDERED: METF500T PO (06:59)
[2018-06-05] MEDS ORDERED: pantoprazole 40mg Tablet.DR PO SCH (07:30)
[2018-06-05] MEDS ORDERED: losartan 50mg tablet PO SCH (08:00)
[2018-06-05] MEDS ORDERED: aspirin 81mg tab.chew PO SCH (08:00)
[2018-06-05] MEDS ORDERED: multivitamins, therapeutics tablet PO SCH (08:00)
[2018-06-05] MEDS ORDERED: FLUoxetine 20mg capsule PO SCH (08:00)
[2018-06-05] MEDS ORDERED: potassium chloride 8mEq ER tablet PO SCH (08:00)
[2018-06-05] MEDS: gabapentin 300mg capsule PO SCH ×2 (08:18→13:58)
[2018-06-05] MEDS: carvedilol 6.25mg tablet PO SCH (08:20)
[2018-06-05] MEDS: insulin Lispro (HumaLOG) vial - multi-dose SQ SCH (08:37)
[2018-06-05] MEDS: HYDROmorphone inj. 0.5 MG/0.5 ML DISP.SYRIN IV PRN (08:41)
[2018-06-05] MEDS: ondansetron/PF 4mg/2ml inj IV PRN (08:41)
[2018-06-05 11:00] VITALS: BP 142/68
--- NOTE | 2018-06-05 15:48 | NUR ---
Pt.s tele monitor and IV removed by relief nurse Mary Lou STARK. Pt. tolerated well. Pt. accompanied by family friend to private vehicle and stable at time of discharge. Medications called to pharmacy by Mary Lou STARK. Pt no longer on the floor.
[2018-06-06] MEDS ORDERED: metFORMIN 500mg tablet PO SCH (07:30)
== END 2018-06-05 15:15 | disposition home or self-care (01) ==
LOC: SSTAY O 07:30 → PCU 3S 15:23 → SSTAY O 06-05 15:15
PROVIDERS: ATTEND Internal Medicine Cardiovascular Disease
DX: I25.10 Atherosclerotic heart disease of native coronary artery without angina pectoris (principal); E11.42 Type 2 diabetes mellitus with diabetic polyneuropathy; E78.5 Hyperlipidemia, unspecified; Z79.4 Long term (current) use of insulin; Z79.899 Other long term (current) drug therapy; Z79.82 Long term (current) use of aspirin; F41.9 Anxiety disorder, unspecified; I10 Essential (primary) hypertension; Z90.81 Acquired absence of spleen; Z98.890 Other specified postprocedural states; Z83.3 Family history of diabetes mellitus; Z82.49 Family history of ischemic heart disease and other diseases of the circulatory system; Z88.6 Allergy status to analgesic agent; Z88.8 Allergy status to other drugs, medicaments and biological substances; Z95.5 Presence of coronary angioplasty implant and graft
CPT/HCPCS: 36415; 80048; 82948; 85025; 85347; 85610; 85730; 92920; 93005; 93458; 94760; 99152; 99153; A6257; C1874; C9600; J1170; J1644; J2001; J2250; J2405; J3010; J7030; Q0163; Q9967; A4620; C1725; C1760; C1769; G0378; J1815; J3490

== ENCOUNTER 2019-06-12 07:37 | Day surgery (SDC) | payer MEDICARE, MEDICAID ==
[2019-06-11 17:00] LABS: ALBUMIN 3.8 G/DL (3.4-5.0); ANION GAP 6 (8-16); BLOOD UREA NITROGEN 18 MG/DL (7-18); BUN/CREATININE RATIO 23.4 (6.6-38.0); CALCIUM 9.8 MG/DL (8.5-10.1); CHLORIDE 105 MMOL/L (99-107); CREATININE 0.77 MG/DL (0.40-0.90); GLUCOSE 184 MG/DL (70-104); SODIUM 142 MMOL/L (135-145); eGFR 75 ML/MIN
[2019-06-11 17:03] LABS: PARTIAL THROMBOPLASTIN TIME 25 SECONDS (22-32)
[2019-06-11 17:13] LABS: BASOPHILS # (AUTO) 0.1 X10'3 (0-0.2); EOSINOPHILS # (AUTO) 0.1 X10'3 (0-0.9); EOSINOPHILS % (AUTO) 1.5 % (0-6); HEMATOCRIT 38.4 % (35.0-45.0); HEMOGLOBIN 13.2 g/dl (12.0-16.0); LYMPHOCYTES # (AUTO) 2.6 X10'3 (1.1-4.8); LYMPHOCYTES % (AUTO) 28.7 % (21-51); MEAN CORPUSCULAR HEMOGLOBIN 30.2 PG (27.0-31.0); MEAN CORPUSCULAR HGB CONC 34.3 g/dL (33.0-36.5); MEAN CORPUSCULAR VOLUME 88.1 FL (78-98); MEAN PLATELET VOLUME 9.3 FL (7.4-10.4); MONOCYTES # (AUTO) 0.7 X10'3 (0-0.9); MONOCYTES % (AUTO) 8.2 % (2-12); NEUTROPHILS # (AUTO) 5.5 X10'3 (1.8-7.7); NEUTROPHILS % (AUTO) 60.6 % (42-75); PLATELET COUNT 175 X10'3 (140-440); RED BLOOD COUNT 4.36 X10'6 (4.20-5.60); RED CELL DISTRIBUTION WIDTH 13.9 % (11.5-14.5)
[~2019-06-12] VITALS: Ht 165.1 cm; Wt 86.7 kg
[2019-06-12] VITALS (12 sets, daily range): BP systolic 126–148; BP diastolic 67–84
[~2019-06-12 07:37] MED LIST changes: -ASPI-1265 PO; +ASPI-611 PO; -ATI0.5T PO; +CARV6.253 PO; +CEPH500C5 PO; -COR3.125T PO; -DEXL30CA3 PO; -FLUO40CA10 PO; -INSU100I9 SQ; +INSU100V10 SQ; -IPRA3AMP9 NEB; +LOSA100T57 PO; -LOSA50TA64 PO; +MULT-1133 PO; +NITR0.4T51 SL; -ONDA8TAB9 PO; -SITA50TA PO
[2019-06-12] MEDS ORDERED: normal saline 1,000 ML IV SCH (08:00)
[2019-06-12] MEDS ORDERED: diphenhydrAMINE 25mg capsule PO PRN (08:00)
[2019-06-12] MEDS ORDERED: LORazepam 0.5 MG tablet PO PRN (08:00)
[2019-06-12] MEDS ORDERED: LIDOcaine/PRILOcaine 5gm cream TP ONE (08:05)
[2019-06-12] MEDS ORDERED: LOSA25TA96 PO (08:46)
[2019-06-12] MEDS ORDERED: METF500T PO (08:48)
[2019-06-12] MEDS ORDERED: VITA-268 PO (08:49)
[2019-06-12] MEDS ORDERED: ACYC-202 PO ×2 (08:50→08:52)
[2019-06-12] MEDS ORDERED: ICOS1CAP PO (08:53)
[2019-06-12] MEDS ORDERED: nitroGLYCERIN-Tridil 50MG/D5W 250 ML IV ONE (09:50)
[2019-06-12] MEDS ORDERED: midazolam 2 mg/2 ml injection ONE (09:50)
[2019-06-12] MEDS ORDERED: fentaNYL/PF 50MCG/1 ML 2ML syringe ONE (09:50)
[2019-06-12] MEDS ORDERED: iohexol 350 MG/ML 50ML vial IV ONE (09:51)
[2019-06-12] MEDS ORDERED: heparin 1,000 UNITS/NS 500ml 500 ML ONE (09:51)
[2019-06-12] MEDS ORDERED: iohexol 350MG/ML 100ml bottle IV ONE ×3 (09:51→11:35)
[2019-06-12] MEDS ORDERED: LIDOcaine 1% (10mg/ml)w/preservative injection 20ml MDV ONE (09:51)
[2019-06-12] MEDS ORDERED: heparin 1,000unit/ml 10ml vial 10 ML ONE (09:51)
[2019-06-12] MEDS ORDERED: verapamil 2.5 mg/ml inj IV ONE (09:52)
[2019-06-12] MEDS ORDERED: heparin 25,000 UNIT/250ml bag 250 ML IV ONE (11:14)
[2019-06-12] MEDS ORDERED: clopidogrel 300mg tablet ONE (12:01)
[2019-06-12] MEDS ORDERED: OXAZEpam 15mg capsule PO PRN (13:50)
[2019-06-12] MEDS ORDERED: acetaminophen 325mg tablet PO PRN (13:50)
[2019-06-12] MEDS ORDERED: HYDROcodone/acetaminophen 10/325mg tab PO PRN ×2 (13:50)
[2019-06-12] MEDS ORDERED: cyclobenzaprine 10mg tablet PO PRN (13:50)
[2019-06-12] MEDS ORDERED: magnesium hydroxide 30ml (MOM) UD suspension PO PRN (13:50)
--- NOTE | 2019-06-12 15:18 | NUR ---
Patient is now complaining of a headache 10/10 pain, offered a norco, she stated she wanted only tylenol. Vitals stable, ate lunch, no pain at radial site, no numbness or tingling at this time, deflating the vasc band per policy, she stated the wrist does feel better with the last release. Pulse ox right index finger reading 95% spo2. Patient placed on hyperglycemic protocol as patient wants some insulin prior to leaving the hospital, placed on there per written orders by Dr. Nam. Will continue to monitor vasc band site and headache.
[2019-06-12] MEDS ORDERED: insulin regular, human U-100 3ml vial - multi-dose SQ SCH (15:20)
[2019-06-12] MEDS ORDERED: MESSAGE TO PHARMACY PO ONE (15:20)
[2019-06-12] MEDS ORDERED: glucagon, human recombinant 1mg kit SUBCUT PRN (15:20)
[2019-06-12] MEDS ORDERED: dextrose ORAL solution 15 GM/59 ML bottle PO PRN ×2 (15:20)
[2019-06-12] MEDS ORDERED: insulin Lispro (HumaLOG) vial - multi-dose SQ SCH (15:20)
[2019-06-12] MEDS ORDERED: dextrose 50%-water 50ml dispensing syringe IV PRN ×2 (15:20)
--- NOTE | 2019-06-12 18:30 | NUR ---
Dr. mishra rounded on patient, as I had told her she was concerned about going home, despite having no complications or issues. He talked to patient and reassured her, asked her how much lipitor she was on, I stated she had stopped taking her crestor and was on the vascepa per jefferson. I had asked patient this am about the crestor as it was under patients meds "not taking" and the patient had stated she was having chest pain, so the PA took her off crestor and started the Vascepa instead. Patient was told she needs to be on something for lipids as she just had a stent, she was instructed to look up praluent or repatha for insurance purposes and will follow up with Dr. mishra in July. No statin was prescribed at discharge, all other home medications discontinued, also patient is no longer taking metformin as Dr. Low office med list had stated. Patient was walked, voided, right wrist cath site cdi, pressure dressing in place per md orders, vitals are stable, pulse ox on right index finger 95%, no tingling or numbness on radial site hand. No complaints other than a mild headache still, after the tylenol. Patients ride was called, discharge instructions understood.
[2019-06-12] MEDS ORDERED: docusate sod 100mg capsule PO SCH (20:00)
[2019-06-12] MEDS ORDERED: insulin glargine (Lantus) pen - multi-dose SQ SCH (21:00)
== END 2019-06-12 19:00 | disposition home or self-care (01) ==
LOC: SSTAY O 07:37
PROVIDERS: ATTEND Internal Medicine Cardiovascular Disease
DX: R94.39 Abnormal result of other cardiovascular function study (principal); I25.10 Atherosclerotic heart disease of native coronary artery without angina pectoris; E78.5 Hyperlipidemia, unspecified; I10 Essential (primary) hypertension; G47.30 Sleep apnea, unspecified; F41.9 Anxiety disorder, unspecified; E11.40 Type 2 diabetes mellitus with diabetic neuropathy, unspecified; Z90.81 Acquired absence of spleen; Z79.899 Other long term (current) drug therapy; Z95.5 Presence of coronary angioplasty implant and graft; Z79.4 Long term (current) use of insulin; Z79.82 Long term (current) use of aspirin; Z87.891 Personal history of nicotine dependence; Z88.5 Allergy status to narcotic agent; Z88.8 Allergy status to other drugs, medicaments and biological substances; Z98.890 Other specified postprocedural states; Z79.01 Long term (current) use of anticoagulants
CPT/HCPCS: 36415; 80048; 82948; 85025; 85347; 85610; 85730; 93005; 93458; 99152; 99153; C1725; C1769; C1874; C1894; C9600; J1644; J2001; J2250; J3010; Q0163; Q9967; 76937; A4620; A5120; A6258; A6449; C1751; J1815; J3490

== ENCOUNTER 2019-08-24 16:31 | Emergency (ER) | payer MEDICARE, MEDICAID ==
[~2019-08-24] VITALS: Ht 157.5 cm; Wt 82.7 kg
[~2019-08-24 16:31] MED LIST changes: +ACYC-202 PO; -CEPH500C5 PO; +ICOS1CAP PO; -LOSA100T57 PO; +LOSA25TA96 PO; -NITR0.4T51 SL; +VITA-268 PO
[2019-08-24] MEDS ORDERED: ondansetron/PF 4mg/2ml inj IV ONE (16:45)
[2019-08-24] MEDS ORDERED: fentaNYL/PF 50MCG/1 ML 2ML syringe IV ONE ×2 (16:45→18:20)
[2019-08-24] MEDS ORDERED: normal saline 1000ML IV soln IVB ONE (16:45)
--- NOTE | 2019-08-24 17:27 | NUR ---
PT TO CT ON EMANI
[2019-08-24 17:28] LABS: BASOPHILS % (AUTO) 0.4 % (0-1); EOSINOPHILS # (AUTO) 0.1 X10'3 (0-0.9); EOSINOPHILS % (AUTO) 1.1 % (0-6); HEMATOCRIT 33.5 % (35.0-45.0); HEMOGLOBIN 11.2 g/dl (12.0-16.0); LYMPHOCYTES # (AUTO) 1.6 X10'3 (1.1-4.8); LYMPHOCYTES % (AUTO) 14.6 % (21-51); MEAN CORPUSCULAR HEMOGLOBIN 29.9 PG (27.0-31.0); MEAN CORPUSCULAR HGB CONC 33.5 g/dL (33.0-36.5); MEAN CORPUSCULAR VOLUME 89.3 FL (78-98); MEAN PLATELET VOLUME 9.8 FL (7.4-10.4); MONOCYTES # (AUTO) 1.5 X10'3 (0-0.9); MONOCYTES % (AUTO) 13.4 % (2-12); NEUTROPHILS # (AUTO) 7.8 X10'3 (1.8-7.7); NEUTROPHILS % (AUTO) 70.5 % (42-75); PLATELET COUNT 127 X10'3 (140-440); RED BLOOD COUNT 3.75 X10'6 (4.20-5.60); RED CELL DISTRIBUTION WIDTH 13.3 % (11.5-14.5); WHITE BLOOD COUNT 11.1 X10'3 (4.5-11.0)
[2019-08-24 17:39] LABS: ALANINE AMINOTRANSFERASE 21 U/L (12-78); ALBUMIN 3.4 G/DL (3.4-5.0); ALBUMIN/GLOBULIN RATIO 1.1 (1.1-1.5); ALKALINE PHOSPHATASE 65 IU/L (46-116); ANION GAP 6 (8-16); ASPARTATE AMINO TRANSFERASE 18 U/L (10-37); BILIRUBIN,TOTAL 0.4 MG/DL (0.1-1.0); BLOOD UREA NITROGEN 13 MG/DL (7-18); BUN/CREATININE RATIO 14.9 (6.6-38.0); CALCIUM 8.7 MG/DL (8.5-10.1); CHLORIDE 103 MMOL/L (99-107); CREATININE 0.87 MG/DL (0.40-0.90); GLUCOSE 433 MG/DL (70-104); LIPASE < 50 U/L (73-393); POTASSIUM 4.4 MMOL/L (3.5-5.1); SODIUM 138 MMOL/L (135-145); TOTAL CARBON DIOXIDE 28.8 MMOL/L (24-32); TOTAL PROTEIN 6.6 G/DL (6.4-8.2); eGFR 66 ML/MIN
[2019-08-24] MEDS ORDERED: HYDR-3965 PO (18:20)
[2019-08-24 19:02] LABS: CLARITY,URINE CLEAR (Clear); COLOR,URINE YELLOW (Yellow); GLUCOSE, URINE >=1000 mg/dl (Neg); KETONES,URINE NEGATIVE (Neg); LEUKOCYTE ESTERASE ,URINE NEGATIVE (Neg); NITRITES, URINE NEGATIVE (Neg); OCCULT BLOOD,URINE SMALL (Neg); PROTEIN,URINE TRACE mg/dl (Neg); UROBILINOGEN,URINE 0.2 E.U/dL (0.2-1.0)
[2019-08-24 19:03] VITALS: BP 138/80
[2019-08-24 19:23] LABS: UA COLLECTION TYPE NON-SPECIFIED
[2019-08-24 19:24] LABS: BACTERIA,URINE FEW /HPF (Neg); RBC,URINE 0-2 /HPF (0-2); SQUAMOUS EPITHELIAL CELL,UR FEW /LPF (FEW); WBC,URINE NONE SEEN /HPF (0-4)
== END 2019-08-24 19:10 | disposition home or self-care (01) ==
LOC: ER 16:32
DX: S30.1XXA Contusion of abdominal wall, initial encounter (principal); I25.10 Atherosclerotic heart disease of native coronary artery without angina pectoris; I10 Essential (primary) hypertension; E11.9 Type 2 diabetes mellitus without complications; Z98.61 Coronary angioplasty status; Z90.49 Acquired absence of other specified parts of digestive tract; Z90.710 Acquired absence of both cervix and uterus; Z72.89 Other problems related to lifestyle; Z56.0 Unemployment, unspecified; Z88.5 Allergy status to narcotic agent; Z86.73 Personal history of transient ischemic attack (TIA), and cerebral infarction without residual deficits; Z88.8 Allergy status to other drugs, medicaments and biological substances; Z79.82 Long term (current) use of aspirin; Z79.4 Long term (current) use of insulin; Z79.899 Other long term (current) drug therapy; X58.XXXA Exposure to other specified factors, initial encounter; Y93.89 Activity, other specified; Y92.89 Other specified places as the place of occurrence of the external cause; Y99.8 Other external cause status
CPT/HCPCS: 36415; 74176; 80053; 81001; 83690; 85025; 96374; 96375; 96376; 99284; J2405; J3010; J7030

== ENCOUNTER 2019-08-26 15:53 | Emergency (ER) | payer MEDICARE, MEDICAID ==
[~2019-08-26] VITALS: Ht 162.6 cm; Wt 2.2 kg
[~2019-08-26 15:53] MED LIST changes: +HYDR-3965 PO
[2019-08-26] MEDS ORDERED: oxyCODONE/APAP 5-325mg tablet PO ONE (16:10)
[2019-08-26] MEDS ORDERED: ondansetron 4mg rapidly disintigrating tab PO ONE (16:10)
[2019-08-26 16:34] LABS: BASOPHILS # (AUTO) 0.1 X10'3 (0-0.2); BASOPHILS % (AUTO) 0.9 % (0-1); EOSINOPHILS # (AUTO) 0.2 X10'3 (0-0.9); EOSINOPHILS % (AUTO) 1.7 % (0-6); HEMATOCRIT 31.2 % (35.0-45.0); HEMOGLOBIN 10.5 g/dl (12.0-16.0); LYMPHOCYTES # (AUTO) 1.9 X10'3 (1.1-4.8); MEAN CORPUSCULAR HGB CONC 33.6 g/dL (33.0-36.5); MEAN CORPUSCULAR VOLUME 89.3 FL (78-98); MEAN PLATELET VOLUME 9.7 FL (7.4-10.4); MONOCYTES # (AUTO) 1.2 X10'3 (0-0.9); MONOCYTES % (AUTO) 10.2 % (2-12); NEUTROPHILS # (AUTO) 8.5 X10'3 (1.8-7.7); NEUTROPHILS % (AUTO) 71.2 % (42-75); PLATELET COUNT 124 X10'3 (140-440); RED BLOOD COUNT 3.49 X10'6 (4.20-5.60); RED CELL DISTRIBUTION WIDTH 13.2 % (11.5-14.5); WHITE BLOOD COUNT 11.9 X10'3 (4.5-11.0)
[2019-08-26] MEDS ORDERED: CEPH250T PO (16:55)
[2019-08-26] MEDS ORDERED: ONDA4TAB6 PO (17:05)
[2019-08-26] MEDS ORDERED: OXYC-145 PO (17:05)
[2019-08-26 17:11] VITALS: BP 179/84
== END 2019-08-26 17:13 | disposition home or self-care (01) ==
LOC: ER 15:54
DX: M79.81 Nontraumatic hematoma of soft tissue (principal); D68.59 Other primary thrombophilia; I25.10 Atherosclerotic heart disease of native coronary artery without angina pectoris; I10 Essential (primary) hypertension; E11.9 Type 2 diabetes mellitus without complications; Z90.49 Acquired absence of other specified parts of digestive tract; Z90.710 Acquired absence of both cervix and uterus; Z86.73 Personal history of transient ischemic attack (TIA), and cerebral infarction without residual deficits; Z98.890 Other specified postprocedural states; Z98.61 Coronary angioplasty status; Z72.89 Other problems related to lifestyle; Z56.0 Unemployment, unspecified; Z88.5 Allergy status to narcotic agent; Z88.8 Allergy status to other drugs, medicaments and biological substances; Z79.82 Long term (current) use of aspirin; Z79.4 Long term (current) use of insulin; Z79.899 Other long term (current) drug therapy
CPT/HCPCS: 36415; 85025; 85610; 93005; 99283; 99284

== ENCOUNTER 2020-01-01 21:17 | Inpatient (IN) | payer MEDICARE, MEDICAID ==
[~2020-01-01] VITALS: Ht 165.1 cm; Wt 78.6 kg
[~2020-01-01 21:17] MED LIST changes: -HYDR-3965 PO; +ONDA4TAB6 PO; +OXYC-145 PO
[2020-01-01] MEDS ORDERED: nitroGLYCERIN 0.4mg SUBLingual tab SL PRN (21:25)
[2020-01-01] MEDS ORDERED: aspirin 81mg tab.chew PO ONE (21:25)
[2020-01-01 21:47] LABS: BASOPHILS # (AUTO) 0.1 X10'3 (0-0.2); BASOPHILS % (AUTO) 0.7 % (0-1); EOSINOPHILS # (AUTO) 0.2 X10'3 (0-0.9); EOSINOPHILS % (AUTO) 1.5 % (0-6); HEMATOCRIT 36.8 % (35.0-45.0); HEMOGLOBIN 12.4 g/dl (12.0-16.0); LYMPHOCYTES # (AUTO) 3.5 X10'3 (1.1-4.8); LYMPHOCYTES % (AUTO) 33.7 % (21-51); MEAN CORPUSCULAR HEMOGLOBIN 28.7 PG (27.0-31.0); MEAN CORPUSCULAR HGB CONC 33.8 g/dL (33.0-36.5); MEAN CORPUSCULAR VOLUME 84.9 FL (78-98); MEAN PLATELET VOLUME 9.8 FL (7.4-10.4); MONOCYTES % (AUTO) 9.2 % (2-12); NEUTROPHILS # (AUTO) 5.7 X10'3 (1.8-7.7); NEUTROPHILS % (AUTO) 54.9 % (42-75); PLATELET COUNT 150 X10'3 (140-440); RED BLOOD COUNT 4.34 X10'6 (4.20-5.60); RED CELL DISTRIBUTION WIDTH 14.4 % (11.5-14.5); WHITE BLOOD COUNT 10.3 X10'3 (4.5-11.0)
[2020-01-01 22:02] LABS: ALANINE AMINOTRANSFERASE 22 U/L (12-78); ALBUMIN 3.7 G/DL (3.4-5.0); ALBUMIN/GLOBULIN RATIO 1.1 (1.1-1.5); ALKALINE PHOSPHATASE 65 IU/L (46-116); ANION GAP 7 (8-16); ASPARTATE AMINO TRANSFERASE 20 U/L (10-37); BILIRUBIN,TOTAL 0.5 MG/DL (0.1-1.0); BLOOD UREA NITROGEN 28 MG/DL (7-18); BUN/CREATININE RATIO 25.9 (6.6-38.0); CALCIUM 9.6 MG/DL (8.5-10.1); CHLORIDE 102 MMOL/L (99-107); CREATININE 1.08 MG/DL (0.40-0.90); GLUCOSE 270 MG/DL (70-104); POTASSIUM 3.9 MMOL/L (3.5-5.1); SODIUM 136 MMOL/L (135-145); TOTAL CARBON DIOXIDE 27.5 MMOL/L (24-32); TOTAL PROTEIN 7.2 G/DL (6.4-8.2); eGFR 51 ML/MIN
[2020-01-01] MEDS ORDERED: nitroGLYCERIN 0.4mg/hour patch TD ONE (23:15)
[2020-01-01] MEDS ORDERED: ondansetron/PF 4mg/2ml inj IV PRN (23:25)
[2020-01-01] MEDS ORDERED: magnesium Cl slow-release 64mg tablet PO PRN (23:25)
[2020-01-01] MEDS ORDERED: acetaminophen 325mg tablet PO PRN (23:25)
[2020-01-01] MEDS ORDERED: potassium CL 10mEq/100ml bag 100 ML IV PRN ×2 (23:25)
[2020-01-01] MEDS ORDERED: magnesium 4gm in 100ml NS 100 ML IV PRN (23:25)
[2020-01-01] MEDS ORDERED: potassium Cl 20 mEq SR tablet PO PRN ×2 (23:25)
[2020-01-01] MEDS ORDERED: magnesium 2GM in 50ml NS 50 ML IV PRN (23:25)
[2020-01-01 23:28] LABS: PARTIAL THROMBOPLASTIN TIME 26 SECONDS (22-32)
[2020-01-01] MEDS ORDERED: ROSU40TA PO (23:35)
[2020-01-01] MEDS ORDERED: INSU100I38 (23:35)
[2020-01-01] MEDS ORDERED: INSU300I SQ (23:35)
[2020-01-01] MEDS ORDERED: MELA1TAB28 PO (23:35)
[2020-01-01] MEDS ORDERED: DEXL60CA3 PO (23:36)
[2020-01-02 04:19] LABS: BASOPHILS # (AUTO) 0.1 X10'3 (0-0.2); EOSINOPHILS # (AUTO) 0.2 X10'3 (0-0.9); HEMATOCRIT 34.3 % (35.0-45.0); HEMOGLOBIN 11.6 g/dl (12.0-16.0); LYMPHOCYTES # (AUTO) 3.2 X10'3 (1.1-4.8); LYMPHOCYTES % (AUTO) 38.2 % (21-51); MEAN CORPUSCULAR HGB CONC 33.9 g/dL (33.0-36.5); MEAN CORPUSCULAR VOLUME 85.4 FL (78-98); MEAN PLATELET VOLUME 10.4 FL (7.4-10.4); MONOCYTES # (AUTO) 0.9 X10'3 (0-0.9); MONOCYTES % (AUTO) 10.5 % (2-12); NEUTROPHILS # (AUTO) 4.1 X10'3 (1.8-7.7); NEUTROPHILS % (AUTO) 48.3 % (42-75); PLATELET COUNT 129 X10'3 (140-440); RED BLOOD COUNT 4.01 X10'6 (4.20-5.60); RED CELL DISTRIBUTION WIDTH 13.9 % (11.5-14.5); WHITE BLOOD COUNT 8.5 X10'3 (4.5-11.0)
[2020-01-02 04:39] LABS: ALBUMIN 3.3 G/DL (3.4-5.0); ANION GAP 6 (8-16); BLOOD UREA NITROGEN 29 MG/DL (7-18); BUN/CREATININE RATIO 28.2 (6.6-38.0); CALCIUM 9.4 MG/DL (8.5-10.1); CHLORIDE 100 MMOL/L (99-107); CREATININE 1.03 MG/DL (0.40-0.90); GLUCOSE 358 MG/DL (70-104); POTASSIUM 4.2 MMOL/L (3.5-5.1); SODIUM 134 MMOL/L (135-145); TOTAL CARBON DIOXIDE 28.5 MMOL/L (24-32); eGFR 54 ML/MIN
--- NOTE | 2020-01-02 04:43 | NUR ---
Patient arrived to unit at 0110, MI Mcdowell transported via wheelchair. Patient had a belongings. I had received report prior to nurse transfering patient up to unit.
[2020-01-02 06:00] VITALS: BP 123/60
--- NOTE | 2020-01-02 06:30 | NUR ---
Problems reprioritized. Patient report given, questions answered & plan of care reviewed with MI Skinner.
--- NOTE | 2020-01-02 06:57 | NUR ---
Patient in room ORTHO 4012. I have received report from Jordan STARK and had the opportunity to ask questions and assume patient care.
[2020-01-02] MEDS: gabapentin 300mg capsule PO SCH ×3 (07:13→21:24)
[2020-01-02] MEDS: ICOSAPENT ETHYL 1 GM PO SCH ×2 (08:00→20:00)
[2020-01-02] MEDS: K and/or MAG REPLACEMENT MC SCH ×2 (08:00→20:00)
[2020-01-02] MEDS: heparin, porcine 5000 units/ml vial SQ SCH ×3 (08:00→21:29)
[2020-01-02] MEDS ORDERED: non-formulary drug (Vitamin B Complex (B Complex) 1 TAB) PO SCH (08:00)
--- NOTE | 2020-01-02 08:14 | NUR ---
PAGER ID: [phone] MESSAGE: RE: [id number] Elicia Finley admit last night. Blood sugar 360, hyperglycemic protocol not ordered. [place] [id number]
[2020-01-02] MEDS ORDERED: glucagon, human recombinant 1mg kit SUBCUT PRN (08:20)
[2020-01-02] MEDS ORDERED: MESSAGE TO PHARMACY PO ONE (08:20)
[2020-01-02] MEDS ORDERED: dextrose 50%-water 50ml dispensing syringe IV PRN ×2 (08:20)
[2020-01-02] MEDS ORDERED: dextrose ORAL solution 15 GM/59 ML bottle PO PRN ×2 (08:20)
[2020-01-02] MEDS: carvedilol 6.25mg tablet PO SCH ×2 (08:24→21:25)
[2020-01-02] MEDS: clopidogrel 75mg tablet PO SCH (08:24)
[2020-01-02] MEDS: aspirin 81mg tab.chew PO SCH (08:24)
[2020-01-02] MEDS: pantoprazole 40mg Tablet.DR PO SCH (08:24)
[2020-01-02] MEDS: beta-carotene(A) w/C & E + minerals tab PO SCH (08:24)
[2020-01-02 08:49] LABS: HEMOGLOBIN A1C 11.4 % (4.5-6.2)
[2020-01-02] MEDS: insulin Lispro (HumaLOG) vial - multi-dose SQ SCH ×3 (09:11→19:04)
[2020-01-02] MEDS ORDERED: nitroGLYCERIN 0.4mg SUBLingual tab SL PRN (09:30)
[2020-01-02] MEDS ORDERED: aminophylline 250mg/10ml inj. IV PRN (09:30)
[2020-01-02] MEDS ORDERED: metoprolol tartrate 1mg/ml inj IV PRN (09:30)
[2020-01-02] MEDS ORDERED: regadenoson 0.4mg/5ml syringe IV PRN (09:30)
[2020-01-02 10:00] VITALS: BP 145/70
[2020-01-02] MEDS ORDERED: insulin glargine (Lantus) pen - multi-dose SQ ONE (13:35)
--- NOTE | 2020-01-02 14:09 | NUR ---
PAGER ID: [phone] MESSAGE: [id number] Tushar Elicia. Very claustrophobic. Required 2mg Ativan last time she had MRI. Can we get Ativan 2mg? DAJA [id number]
[2020-01-02] MEDS ORDERED: LORazepam 2 mg/ml vial IV ONE (14:10)
--- NOTE | 2020-01-02 15:57 | NUR ---
Student documentation: I have reviewed assessment performed and documented by Barb Yadav SN [facility].
[2020-01-02 18:00] VITALS: BP 134/65
--- NOTE | 2020-01-02 18:07 | NUR ---
Problems reprioritized. Patient report given, questions answered & plan of care reviewed with Vanesa STARK.
--- NOTE | 2020-01-02 18:30 | NUR ---
Patient in room ORTHO 4012. I have received report from Tamika STARK and had the opportunity to ask questions and assume patient care.
[2020-01-02] MEDS ORDERED: insulin glargine (Lantus) pen - multi-dose SQ SCH ×2 (20:00→21:00)
--- NOTE | 2020-01-02 20:02 | NUR ---
Neuro assessment intact. Pt with syncope or near syncope. MRI negative for stroke. Has pain in left leg due to "muscle strain". Pt states was just bending over and felt as though a "hot" iron was thrust into her leg or thigh muscle. Pt does favor left leg when up. For cardiac stress test tomorrow. On tele.
[2020-01-02] MEDS: ROSUVASTATIN CALCIUM 40 MG PO SCH (21:00)
[2020-01-02] MEDS ORDERED: non-formulary drug (Melatonin/Pyridoxine HCl (B6) (Melatonin 3 mg Tablet) 3 TAB) PO SCH (21:00)
[2020-01-02] MEDS: losartan 50mg tablet PO SCH (21:28)
[2020-01-02] MEDS: insulin glargine (Lantus) pen - multi-dose SQ SCH (21:36)
[2020-01-02 22:00] VITALS: BP 159/67
[2020-01-03] VITALS (10 sets, daily range): BP systolic 110–201; BP diastolic 48–91
--- NOTE | 2020-01-03 05:48 | NUR ---
pt. refused orthostatic vitals. Addendum: 01/03/20 at 0549 by Vanesa Cohen RN Amended: Links added.
--- NOTE | 2020-01-03 06:19 | NUR ---
Problems reprioritized. Patient report given, questions answered & plan of care reviewed with Tamika STARK.
--- NOTE | 2020-01-03 06:21 | NUR ---
Patient in room ORTHO 4012. I have received report from Vanesa STARK and had the opportunity to ask questions and assume patient care.
[2020-01-03 07:23] LABS: BASOPHILS # (AUTO) 0.1 X10'3 (0-0.2); EOSINOPHILS # (AUTO) 0.2 X10'3 (0-0.9); EOSINOPHILS % (AUTO) 2.3 % (0-6); HEMATOCRIT 36.7 % (35.0-45.0); HEMOGLOBIN 12.5 g/dl (12.0-16.0); LYMPHOCYTES # (AUTO) 2.4 X10'3 (1.1-4.8); LYMPHOCYTES % (AUTO) 25.3 % (21-51); MEAN CORPUSCULAR HEMOGLOBIN 29.4 PG (27.0-31.0); MEAN CORPUSCULAR VOLUME 86.4 FL (78-98); MEAN PLATELET VOLUME 9.7 FL (7.4-10.4); MONOCYTES # (AUTO) 0.8 X10'3 (0-0.9); MONOCYTES % (AUTO) 8.5 % (2-12); NEUTROPHILS % (AUTO) 62.9 % (42-75); PLATELET COUNT 128 X10'3 (140-440); RED BLOOD COUNT 4.24 X10'6 (4.20-5.60); RED CELL DISTRIBUTION WIDTH 14.2 % (11.5-14.5); WHITE BLOOD COUNT 9.6 X10'3 (4.5-11.0)
[2020-01-03] MEDS: clopidogrel 75mg tablet PO SCH (08:00)
[2020-01-03] MEDS: K and/or MAG REPLACEMENT MC SCH ×2 (08:00→20:00)
[2020-01-03] MEDS: ICOSAPENT ETHYL 1 GM PO SCH (08:00)
[2020-01-03] MEDS: heparin, porcine 5000 units/ml vial SQ SCH (08:00)
[2020-01-03] MEDS: insulin glargine (Lantus) pen - multi-dose SQ SCH ×2 (08:00→21:36)
[2020-01-03] MEDS: aspirin 81mg tab.chew PO SCH (08:30)
[2020-01-03 09:36] LABS: ALBUMIN 3.3 G/DL (3.4-5.0); ANION GAP 6 (8-16); BLOOD UREA NITROGEN 24 MG/DL (7-18); BUN/CREATININE RATIO 26.7 (6.6-38.0); CHLORIDE 103 MMOL/L (99-107); GLUCOSE 251 MG/DL (70-104); POTASSIUM 4.3 MMOL/L (3.5-5.1); SODIUM 136 MMOL/L (135-145); TOTAL CARBON DIOXIDE 27.1 MMOL/L (24-32); eGFR 63 ML/MIN
[2020-01-03] MEDS: gabapentin 300mg capsule PO SCH ×2 (11:32→20:27)
[2020-01-03] MEDS: pantoprazole 40mg Tablet.DR PO SCH (11:33)
[2020-01-03] MEDS: carvedilol 6.25mg tablet PO SCH ×2 (11:33→20:27)
[2020-01-03] MEDS: beta-carotene(A) w/C & E + minerals tab PO SCH (11:33)
--- NOTE | 2020-01-03 12:20 | NUR ---
PAGER ID: [phone] MESSAGE: [phone] Elicia Finley. Abnormal Stress Test resulted. [place] [id number]
--- NOTE | 2020-01-03 12:30 | NUR ---
PAGER ID: [phone] MESSAGE: [id number] Elicia Finley. Abnormal Stress test suggestive of DC. Please advise. Tamika
--- NOTE | 2020-01-03 12:34 | NUR ---
Spoke to Dr. Sy regarding abnormal stress test. Dr. Sy asked me to call Dr. Nam's office to notify him of results. I called Dr. Nam's office and notified his office of Stress Test results and they said they would give him the information. Waiting for call back from him for a plan of action.
[2020-01-03] MEDS ORDERED: normal saline 1000ml 1,000 ML IV SCH (13:00)
[2020-01-03] MEDS ORDERED: iohexol 350 MG/ML 50ML vial IV ONE (14:34)
[2020-01-03] MEDS ORDERED: LIDOcaine 1% (10mg/ml)w/preservative injection 20ml MDV ONE (14:34)
[2020-01-03] MEDS ORDERED: nitroGLYCERIN-Tridil 50MG/D5W 250 ML IV ONE (14:34)
[2020-01-03] MEDS ORDERED: heparin 1,000unit/ml 10ml vial 10 ML ONE (14:34)
[2020-01-03] MEDS ORDERED: verapamil 2.5 mg/ml inj IV ONE (14:34)
[2020-01-03] MEDS ORDERED: midazolam 2 mg/2 ml injection ONE ×2 (14:34→16:15)
[2020-01-03] MEDS ORDERED: fentaNYL/PF 50MCG/1 ML 2ML syringe ONE (14:34)
[2020-01-03] MEDS ORDERED: iohexol 350MG/ML 100ml bottle IV ONE ×3 (14:35→16:23)
[2020-01-03] MEDS ORDERED: heparin 25,000 UNIT/250ml bag 250 ML IV ONE (15:40)
--- NOTE | 2020-01-03 15:46 | NUR ---
DM education: patient has A1c of 11.4%, will need written DM education handout with verbal review. Attempted bedside education, pt not available in room at that time. Will attempt education again. Addendum: 01/03/20 at [address] Amended: Links added.
--- NOTE | 2020-01-03 15:52 | NUR ---
Report given to Tess STARK
--- NOTE | 2020-01-03 15:58 | NUR ---
Patient in room ORTHO 4012. I have received report from Milo and had the opportunity to ask questions and assume patient care.
[2020-01-03] MEDS ORDERED: hydrALAZINE 20mg/ml inj. IV PRN (16:25)
[2020-01-03] MEDS ORDERED: heparin 1,000 UNITS/NS 500ml 500 ML ONE (16:29)
[2020-01-03] MEDS ORDERED: clopidogrel 300mg tablet ONE (16:57)
--- NOTE | 2020-01-03 17:10 | NUR ---
Pt returned from clinical laboratory assistant
[2020-01-03] MEDS ORDERED: heparin 10,000 units/1 ML INJ IV ONE (18:15)
[2020-01-03] MEDS ORDERED: heparin 25,000 UNIT/250ml bag 250 ML IV SCH (18:15)
[2020-01-03] MEDS ORDERED: heparin 10,000 units/1 ML INJ IV PRN (18:15)
--- NOTE | 2020-01-03 18:22 | NUR ---
Problems reprioritized. Patient report given, questions answered & plan of care reviewed with Shara.
[2020-01-03] MEDS ORDERED: HYDROcodone/acetaminophen 10/325mg tab PO PRN ×2 (18:25)
[2020-01-03] MEDS ORDERED: proCHLORperazine 10 MG/2 ml inj IV PRN (18:25)
[2020-01-03] MEDS ORDERED: cyclobenzaprine 10mg tablet PO PRN (18:25)
[2020-01-03] MEDS ORDERED: magnesium hydroxide 30ml (MOM) UD suspension PO PRN (18:25)
[2020-01-03] MEDS ORDERED: acetaminophen 325mg tablet PO PRN ×2 (18:25)
[2020-01-03] MEDS ORDERED: OXAZEpam 15mg capsule PO PRN (18:25)
[2020-01-03] MEDS: insulin Lispro (HumaLOG) vial - multi-dose SQ SCH (19:58)
[2020-01-03] MEDS: docusate sod 100mg capsule PO SCH (20:00)
[2020-01-03] MEDS: losartan 50mg tablet PO SCH (20:27)
[2020-01-03] MEDS: ROSUVASTATIN CALCIUM 40 MG PO SCH (20:29)
--- NOTE | 2020-01-03 20:33 | NUR ---
Dr. Nam called back regarding the phone call from [facility] regarding the critical PTT. I informed him that it was ordered because of standard heparin drip orders and now that patient isn't on the medication it was not needed. He is aware of slight bleeding at insertion site from radial site and told me that we can keep the pressure device on a little longer or put a soft pressure dressing on it as long as the radial pulse is intact.
[2020-01-03] MEDS: temazepam 15mg capsule PO PRN (22:12)
[2020-01-04] VITALS (10 sets, daily range): BP systolic 81–183; BP diastolic 38–79
[2020-01-04 06:21] LABS: BASOPHILS # (AUTO) 0.1 X10'3 (0-0.2); EOSINOPHILS # (AUTO) 0.2 X10'3 (0-0.9); HEMATOCRIT 34.3 % (35.0-45.0); HEMOGLOBIN 11.8 g/dl (12.0-16.0); LYMPHOCYTES # (AUTO) 2.5 X10'3 (1.1-4.8); LYMPHOCYTES % (AUTO) 32.4 % (21-51); MEAN CORPUSCULAR HEMOGLOBIN 29.3 PG (27.0-31.0); MEAN CORPUSCULAR HGB CONC 34.3 g/dL (33.0-36.5); MEAN CORPUSCULAR VOLUME 85.4 FL (78-98); MEAN PLATELET VOLUME 9.3 FL (7.4-10.4); MONOCYTES # (AUTO) 0.8 X10'3 (0-0.9); MONOCYTES % (AUTO) 10.2 % (2-12); NEUTROPHILS # (AUTO) 4.2 X10'3 (1.8-7.7); NEUTROPHILS % (AUTO) 54.4 % (42-75); PARTIAL THROMBOPLASTIN TIME 27 SECONDS (22-32); PLATELET COUNT 126 X10'3 (140-440); RED BLOOD COUNT 4.02 X10'6 (4.20-5.60); RED CELL DISTRIBUTION WIDTH 13.9 % (11.5-14.5); WHITE BLOOD COUNT 7.8 X10'3 (4.5-11.0)
--- NOTE | 2020-01-04 06:30 | NUR ---
Patient in room ORTHO 4012. I have received report from [facility] and had the opportunity to ask questions and assume patient care.
--- NOTE | 2020-01-04 06:38 | NUR ---
Problems reprioritized. Patient report given, questions answered & plan of care reviewed with Tess STARK.
[2020-01-04 06:39] LABS: ALBUMIN 3.1 G/DL (3.4-5.0); ANION GAP 10 (8-16); BLOOD UREA NITROGEN 16 MG/DL (7-18); BUN/CREATININE RATIO 22.2 (6.6-38.0); CALCIUM 8.6 MG/DL (8.5-10.1); CHLORIDE 104 MMOL/L (99-107); CHOL/HDL RATIO 3.5 (0.00-4.99); CHOLESTEROL 98 MG/DL (0-200); CREATININE 0.72 MG/DL (0.40-0.90); GLUCOSE 126 MG/DL (70-104); HDL CHOLESTEROL 28 MG/DL (35-60); LDL CHOLESTEROL 45 MG/DL (50-100); POTASSIUM 3.7 MMOL/L (3.5-5.1); SODIUM 141 MMOL/L (135-145); TOTAL CARBON DIOXIDE 27.3 MMOL/L (24-32); TRIGLYCERIDES 198 MG/DL (20-135); eGFR 81 ML/MIN
[2020-01-04] MEDS: K and/or MAG REPLACEMENT MC SCH ×2 (07:16→19:22)
[2020-01-04] MEDS ORDERED: clopidogrel 75mg tablet PO SCH (08:00)
[2020-01-04] MEDS: docusate sod 100mg capsule PO SCH ×2 (08:00→19:35)
[2020-01-04] MEDS: pantoprazole 40mg Tablet.DR PO SCH (09:14)
[2020-01-04] MEDS: gabapentin 300mg capsule PO SCH ×2 (09:15→19:35)
[2020-01-04] MEDS: carvedilol 6.25mg tablet PO SCH ×2 (09:15→19:38)
[2020-01-04] MEDS: beta-carotene(A) w/C & E + minerals tab PO SCH (09:16)
[2020-01-04] MEDS: clopidogrel 75mg tablet PO SCH (09:17)
[2020-01-04] MEDS: insulin glargine (Lantus) pen - multi-dose SQ SCH ×2 (09:21→21:45)
[2020-01-04] MEDS: aspirin 81mg tab.chew PO SCH (09:22)
[2020-01-04] MEDS: insulin Lispro (HumaLOG) vial - multi-dose SQ SCH ×3 (09:52→19:22)
--- NOTE | 2020-01-04 12:56 | NUR ---
DM/Cardiac education: patient has A1c of 11.4%, met at bedside and given written DM education handout with verbal review and written cardiac diet education handout with verbal review. Gave RD contact information if any additional questions. Addendum: 01/04/20 at [address] Amended: Links added.
--- NOTE | 2020-01-04 14:00 | NUR ---
Pt not feeling well, lunch tray she wanted did not come until 1400, insulin given late per pt request
[2020-01-04] MEDS ORDERED: diphenhydrAMINE 25mg capsule PO PRN (16:10)
[2020-01-04] MEDS ORDERED: normal saline 500ml IV soln 1,000 ML IV ONE (17:10)
--- NOTE | 2020-01-04 18:21 | NUR ---
Problems reprioritized. Patient report given, questions answered & plan of care reviewed with
--- NOTE | 2020-01-04 18:55 | NUR ---
Patient in room ORTHO 4012. I have received report from Tess STARK and had the opportunity to ask questions and assume patient care.
[2020-01-04] MEDS: ROSUVASTATIN CALCIUM 40 MG PO SCH (21:00)
[2020-01-04] MEDS: losartan 50mg tablet PO SCH (21:00)
[2020-01-04] MEDS: temazepam 15mg capsule PO PRN (23:53)
[2020-01-05 03:30] VITALS: BP_SYST 157; BP_SYST 161; BP_SYST 164; BP_DIAS 67; BP_DIAS 77
--- NOTE | 2020-01-05 04:27 | NUR ---
Came into take patients orthostatic vitals. Her BP was 164/67 while supine. Patient sat up and it raised to 190/94. Instructed her to take a few deep breaths and retook it. BP was still slightly elevated at 161/67. Pt. had refused to take ordered Losartan at 2100 med pass. Gave hydralazine per MD orders for SBP greater than 160.
[2020-01-05 06:00] VITALS: BP 161/90
[2020-01-05 06:16] LABS: BASOPHILS # (AUTO) 0.1 X10'3 (0-0.2); BASOPHILS % (AUTO) 1.4 % (0-1); EOSINOPHILS # (AUTO) 0.2 X10'3 (0-0.9); HEMATOCRIT 35.4 % (35.0-45.0); HEMOGLOBIN 11.8 g/dl (12.0-16.0); LYMPHOCYTES # (AUTO) 2.3 X10'3 (1.1-4.8); LYMPHOCYTES % (AUTO) 36.8 % (21-51); MEAN CORPUSCULAR HEMOGLOBIN 28.7 PG (27.0-31.0); MEAN CORPUSCULAR HGB CONC 33.5 g/dL (33.0-36.5); MEAN CORPUSCULAR VOLUME 85.8 FL (78-98); MEAN PLATELET VOLUME 9.5 FL (7.4-10.4); MONOCYTES # (AUTO) 0.6 X10'3 (0-0.9); MONOCYTES % (AUTO) 10.5 % (2-12); NEUTROPHILS % (AUTO) 48.3 % (42-75); PLATELET COUNT 123 X10'3 (140-440); RED BLOOD COUNT 4.13 X10'6 (4.20-5.60); RED CELL DISTRIBUTION WIDTH 14.3 % (11.5-14.5); WHITE BLOOD COUNT 6.1 X10'3 (4.5-11.0)
[2020-01-05 06:22] LABS: ALBUMIN 3.4 G/DL (3.4-5.0); ANION GAP 7 (8-16); BLOOD UREA NITROGEN 13 MG/DL (7-18); BUN/CREATININE RATIO 16.9 (6.6-38.0); CALCIUM 8.6 MG/DL (8.5-10.1); CHLORIDE 106 MMOL/L (99-107); CREATININE 0.77 MG/DL (0.40-0.90); GLUCOSE 124 MG/DL (70-104); POTASSIUM 3.9 MMOL/L (3.5-5.1); SODIUM 142 MMOL/L (135-145); TOTAL CARBON DIOXIDE 28.6 MMOL/L (24-32); eGFR 75 ML/MIN
--- NOTE | 2020-01-05 06:44 | NUR ---
Problems reprioritized. Patient report given, questions answered & plan of care reviewed with Aranza STARK.
--- NOTE | 2020-01-05 06:56 | NUR ---
Patient in room ORTHO 4012A. I have received report from MI Alexis and had the opportunity to ask questions and assume patient care.
[2020-01-05] MEDS: K and/or MAG REPLACEMENT MC SCH (07:08)
[2020-01-05] MEDS: pantoprazole 40mg Tablet.DR PO SCH (07:44)
[2020-01-05] MEDS: carvedilol 6.25mg tablet PO SCH (07:45)
[2020-01-05] MEDS: gabapentin 300mg capsule PO SCH (07:46)
[2020-01-05] MEDS: aspirin 81mg tab.chew PO SCH (07:46)
[2020-01-05] MEDS: clopidogrel 75mg tablet PO SCH (07:46)
[2020-01-05] MEDS: beta-carotene(A) w/C & E + minerals tab PO SCH (07:46)
[2020-01-05] MEDS: docusate sod 100mg capsule PO SCH (07:47)
[2020-01-05] MEDS: insulin glargine (Lantus) pen - multi-dose SQ SCH (09:54)
[2020-01-05] MEDS: insulin Lispro (HumaLOG) vial - multi-dose SQ SCH ×2 (09:56→14:32)
[2020-01-05 10:00] VITALS: BP 100/49
[2020-01-05 10:38] VITALS: BP 161/90
[2020-01-05] MEDS ORDERED: TEMA15CA5 PO (11:05)
[2020-01-05] MEDS ORDERED: NITR0.4T51 SL (11:05)
[2020-01-05 14:11] VITALS: BP_SYST 110; BP_SYST 119; BP_DIAS 55; BP_DIAS 56; BP_DIAS 69
--- NOTE | 2020-01-05 15:55 | NUR ---
DC INSTRUCTIONS GIVEN, QUESTIONS ANSWERED. IV REMOVED CANULA INTACT, TELE REMOVED. PT DRESSED SELF. WHEELED DOWN TO FRIEND DRIVING PRIVATE VEHICLE IN STABLE CONDITION.
== END 2020-01-05 15:30 | disposition home or self-care (01) | DRG 250 ==
LOC: ER 21:17 → ED HOLD 23:25 → ORTHO 4S 01-02 01:10 → OBSVTOIN 01-03 10:00
PROVIDERS: ADMIT Internal Medicine; ATTEND Family Medicine
PROC: 4A023N7 Measurement of Cardiac Sampling and Pressure, Left Heart, Percutaneous Approach (ICD-10-PCS; principal; 2020-01-03)
PROC: 02703ZZ Dilation of Coronary Artery, One Artery, Percutaneous Approach (ICD-10-PCS; 2020-01-03)
PROC: B2111ZZ Fluoroscopy of Multiple Coronary Arteries using Low Osmolar Contrast (ICD-10-PCS; 2020-01-03)
PROC: B2151ZZ Fluoroscopy of Left Heart using Low Osmolar Contrast (ICD-10-PCS; 2020-01-03)
PROC: 4A02XM4 Measurement of Cardiac Total Activity, External Approach (ICD-10-PCS; 2020-01-03)
PROC: 3E033HZ Introduction of Radioactive Substance into Peripheral Vein, Percutaneous Approach (ICD-10-PCS; 2020-01-03)
DX: T82.855A Stenosis of coronary artery stent, initial encounter (principal); I21.4 Non-ST elevation (NSTEMI) myocardial infarction; N17.0 Acute kidney failure with tubular necrosis; I25.110 Atherosclerotic heart disease of native coronary artery with unstable angina pectoris; E11.65 Type 2 diabetes mellitus with hyperglycemia; E78.1 Pure hyperglyceridemia; E78.5 Hyperlipidemia, unspecified; F41.9 Anxiety disorder, unspecified; I10 Essential (primary) hypertension; Z79.4 Long term (current) use of insulin; Z86.73 Personal history of transient ischemic attack (TIA), and cerebral infarction without residual deficits; Z90.710 Acquired absence of both cervix and uterus; Z95.5 Presence of coronary angioplasty implant and graft; Y83.8 Other surgical procedures as the cause of abnormal reaction of the patient, or of later complication, without mention of misadventure at the time of the procedure
CPT/HCPCS: 36415; 70544; 70551; 71045; 78452; 80048; 80053; 80061; 82948; 83036; 83735; 83880; 84484; 85025; 85347; 85610; 85730; 87081; 92920; 92921; 93005; 93017; 93306; 93308; 93458; 93880; 94760; 96374; 99152; 99153; 99285; A4620; A5120; A9500; C1725; C1751; C1769; C1894; G0378; J0360; J1644; J1815; J2001; J2060; J2250; J2405; J2785; J3010; J3490; J7030; J7040; Q0163; Q9967

== ENCOUNTER → 2020-01-16 | Outpatient (CLI) | payer MEDICARE, MEDICAID ==
[2020-01-16] VITALS (22 sets, daily range): BP systolic 98–147; BP diastolic 56–81
[~2020-01-16] MED LIST changes: -ACYC-202 PO; +DEXL60CA3 PO; +INSU100I38; -INSU100V10 SQ; +INSU300I SQ; -LANTUS SQ; +MELA1TAB28 PO; -METF500T PO; +NITR0.4T51 SL; -ONDA4TAB6 PO; -OXYC-145 PO; +ROSU40TA PO; +TEMA15CA5 PO
== END | disposition home or self-care (01) ==
LOC: CARD DIAG 09:49
PROVIDERS: ATTEND Internal Medicine Cardiovascular Disease
DX: R42 Dizziness and giddiness (principal)
CPT/HCPCS: 93660

== ENCOUNTER 2020-02-14 13:31 | Emergency (ER) | payer MEDICARE, MEDICAID ==
[~2020-02-14] VITALS: Ht 165.1 cm; Wt 82.0 kg
[2020-02-14 14:32] VITALS: BP 210/104
[2020-02-14] MEDS ORDERED: penicillin V potassium 500mg tablet PO ONE (14:55)
[2020-02-14] MEDS ORDERED: HYDR-4383 PO (15:02)
[2020-02-14] MEDS ORDERED: PENI500T2 PO (15:02)
== END 2020-02-14 15:12 | disposition home or self-care (01) ==
LOC: ER 13:32
DX: K04.7 Periapical abscess without sinus (principal); I10 Essential (primary) hypertension; E11.65 Type 2 diabetes mellitus with hyperglycemia; I25.2 Old myocardial infarction; I25.10 Atherosclerotic heart disease of native coronary artery without angina pectoris; Z79.4 Long term (current) use of insulin; Z86.73 Personal history of transient ischemic attack (TIA), and cerebral infarction without residual deficits; Z87.440 Personal history of urinary (tract) infections; Z90.89 Acquired absence of other organs; Z90.710 Acquired absence of both cervix and uterus; Z90.49 Acquired absence of other specified parts of digestive tract; Z98.890 Other specified postprocedural states; Z72.89 Other problems related to lifestyle; Z56.0 Unemployment, unspecified; Z88.8 Allergy status to other drugs, medicaments and biological substances; Z88.5 Allergy status to narcotic agent; Z79.82 Long term (current) use of aspirin; Z79.899 Other long term (current) drug therapy
CPT/HCPCS: 99283

== ENCOUNTER 2020-04-29 16:28 | Emergency (ER) | payer MEDICARE, MEDICAID ==
[~2020-04-29] VITALS: Ht 165.1 cm; Wt 83.6 kg
[~2020-04-29 16:28] MED LIST changes: +HYDR-4383 PO
[2020-04-29 17:18] LABS: BASOPHILS # (AUTO) 0.1 X10'3 (0-0.2); BASOPHILS % (AUTO) 1.3 % (0-1); EOSINOPHILS # (AUTO) 0.2 X10'3 (0-0.9); EOSINOPHILS % (AUTO) 2.4 % (0-6); HEMATOCRIT 38.3 % (35.0-45.0); HEMOGLOBIN 12.6 g/dl (12.0-16.0); LYMPHOCYTES # (AUTO) 2.8 X10'3 (1.1-4.8); LYMPHOCYTES % (AUTO) 27.9 % (21-51); MEAN CORPUSCULAR HEMOGLOBIN 28.2 PG (27.0-31.0); MEAN CORPUSCULAR VOLUME 85.4 FL (78-98); MONOCYTES # (AUTO) 0.7 X10'3 (0-0.9); MONOCYTES % (AUTO) 7.3 % (2-12); NEUTROPHILS # (AUTO) 6.1 X10'3 (1.8-7.7); NEUTROPHILS % (AUTO) 61.1 % (42-75); PLATELET COUNT 144 X10'3 (140-440); RED BLOOD COUNT 4.49 X10'6 (4.20-5.60); RED CELL DISTRIBUTION WIDTH 14.2 % (11.5-14.5); WHITE BLOOD COUNT 9.9 X10'3 (4.5-11.0)
[2020-04-29 17:31] LABS: PARTIAL THROMBOPLASTIN TIME 26 SECONDS (22-32)
[2020-04-29 17:32] LABS: ALANINE AMINOTRANSFERASE 26 U/L (12-78); ALBUMIN 3.9 G/DL (3.4-5.0); ALBUMIN/GLOBULIN RATIO 1.1 (1.1-1.5); ALKALINE PHOSPHATASE 59 IU/L (46-116); ANION GAP 7 (8-16); ASPARTATE AMINO TRANSFERASE 23 U/L (10-37); BILIRUBIN,TOTAL 0.5 MG/DL (0.1-1.0); BLOOD UREA NITROGEN 28 MG/DL (7-18); BUN/CREATININE RATIO 32.6 (6.6-38.0); CALCIUM 8.8 MG/DL (8.5-10.1); CHLORIDE 104 MMOL/L (99-107); CREATININE 0.86 MG/DL (0.40-0.90); GLUCOSE 211 MG/DL (70-104); POTASSIUM 4.1 MMOL/L (3.5-5.1); SODIUM 138 MMOL/L (135-145); TOTAL PROTEIN 7.4 G/DL (6.4-8.2); eGFR 66 ML/MIN
[2020-04-29] MEDS: ketorolac tromethamine 15mg/ml inj. IV ONE (17:53)
[2020-04-29 18:54] VITALS: BP 121/62
== END 2020-04-29 18:55 | disposition home or self-care (01) ==
LOC: ER 16:29
DX: R07.89 Other chest pain (principal); I10 Essential (primary) hypertension; E11.9 Type 2 diabetes mellitus without complications; I25.10 Atherosclerotic heart disease of native coronary artery without angina pectoris; Z87.440 Personal history of urinary (tract) infections; Z86.73 Personal history of transient ischemic attack (TIA), and cerebral infarction without residual deficits; Z87.19 Personal history of other diseases of the digestive system; Z72.89 Other problems related to lifestyle; Z56.0 Unemployment, unspecified; Z98.61 Coronary angioplasty status; Z90.49 Acquired absence of other specified parts of digestive tract; Z98.891 History of uterine scar from previous surgery; Z90.710 Acquired absence of both cervix and uterus; Z98.890 Other specified postprocedural states; Z88.6 Allergy status to analgesic agent; Z88.8 Allergy status to other drugs, medicaments and biological substances; Z79.82 Long term (current) use of aspirin; Z79.4 Long term (current) use of insulin; Z79.899 Other long term (current) drug therapy
CPT/HCPCS: 36415; 71045; 80053; 84484; 85025; 85610; 85730; 93005; 96374; 99285; J1885

== ENCOUNTER 2020-05-18 06:35 | Day surgery (SDC) | payer MEDICARE, MEDICAID ==
[2020-05-15 14:40] LABS: BASOPHILS # (AUTO) 0.1 X10'3 (0-0.2); BASOPHILS % (AUTO) 1.1 % (0-1); EOSINOPHILS # (AUTO) 0.2 X10'3 (0-0.9); EOSINOPHILS % (AUTO) 1.8 % (0-6); HEMATOCRIT 37.7 % (35.0-45.0); HEMOGLOBIN 12.4 g/dl (12.0-16.0); LYMPHOCYTES # (AUTO) 2.2 X10'3 (1.1-4.8); LYMPHOCYTES % (AUTO) 19.8 % (21-51); MEAN CORPUSCULAR HEMOGLOBIN 27.6 PG (27.0-31.0); MEAN CORPUSCULAR HGB CONC 32.8 g/dL (33.0-36.5); MEAN CORPUSCULAR VOLUME 84.3 FL (78-98); MEAN PLATELET VOLUME 9.8 FL (7.4-10.4); MONOCYTES # (AUTO) 0.8 X10'3 (0-0.9); MONOCYTES % (AUTO) 7.5 % (2-12); NEUTROPHILS # (AUTO) 7.9 X10'3 (1.8-7.7); NEUTROPHILS % (AUTO) 69.8 % (42-75); PLATELET COUNT 143 X10'3 (140-440); RED BLOOD COUNT 4.47 X10'6 (4.20-5.60); RED CELL DISTRIBUTION WIDTH 14.5 % (11.5-14.5); WHITE BLOOD COUNT 11.2 X10'3 (4.5-11.0)
[2020-05-15 14:45] LABS: ALBUMIN 3.8 G/DL (3.4-5.0); ANION GAP 6 (8-16); BLOOD UREA NITROGEN 20 MG/DL (7-18); BUN/CREATININE RATIO 24.7 (6.6-38.0); CALCIUM 8.8 MG/DL (8.5-10.1); CHLORIDE 105 MMOL/L (99-107); CREATININE 0.81 MG/DL (0.40-0.90); GLUCOSE 271 MG/DL (70-104); POTASSIUM 4.5 MMOL/L (3.5-5.1); SODIUM 141 MMOL/L (135-145); TOTAL CARBON DIOXIDE 30.3 MMOL/L (24-32); eGFR 71 ML/MIN
[2020-05-15 14:50] LABS: PARTIAL THROMBOPLASTIN TIME 27 SECONDS (22-32)
[2020-05-18] VITALS (14 sets, daily range): BP systolic 124–165; BP diastolic 57–75
[~2020-05-18] VITALS: Ht 165.1 cm; Wt 85.5 kg
[2020-05-18] MEDS ORDERED: diphenhydrAMINE 25mg capsule PO PRN (06:50)
[2020-05-18] MEDS ORDERED: LORazepam 0.5 MG tablet PO PRN (06:50)
[2020-05-18] MEDS ORDERED: LIDOcaine/PRILOcaine 5gm cream TP ONE (06:50)
[2020-05-18] MEDS ORDERED: INSU100V39 SQ (07:12)
[2020-05-18] MEDS ORDERED: magnesium PO (07:12)
[2020-05-18] MEDS ORDERED: verapamil 2.5 mg/ml inj IV ONE (07:38)
[2020-05-18] MEDS ORDERED: heparin 1,000unit/ml 10ml vial 10 ML ONE (07:39)
[2020-05-18] MEDS ORDERED: nitroGLYCERIN-Tridil 50MG/D5W 250 ML IV ONE (07:39)
[2020-05-18] MEDS ORDERED: midazolam 2 mg/2 ml injection ONE (07:39)
[2020-05-18] MEDS ORDERED: iohexol 350 MG/ML 50ML vial IV ONE (07:39)
[2020-05-18] MEDS ORDERED: iohexol 350MG/ML 100ml bottle IV ONE ×3 (07:39→09:37)
[2020-05-18] MEDS ORDERED: LIDOcaine 1% (10mg/ml)w/preservative injection 20ml MDV ONE (07:39)
[2020-05-18] MEDS ORDERED: fentaNYL/PF 50MCG/1 ML 2ML syringe ONE (07:39)
[2020-05-18] MEDS ORDERED: normal saline 1000ml IV bolus over 1 hour IV ONE (07:40)
[2020-05-18] MEDS ORDERED: ondansetron/PF 4mg/2ml inj ONE (08:23)
[2020-05-18 08:37] LABS: ISTAT HGB ART 12.2 g/dl (12.0-16.0); ISTAT Hct ART 36 %PCV (35-48); ISTAT O2 SATURATION ARTERIAL 99 % (95-98); ISTAT SOURCE ART
[2020-05-18] MEDS ORDERED: heparin 25,000 UNIT/250ml bag 250 ML IV ONE (08:55)
[2020-05-18] MEDS ORDERED: adenosine 90 MG/30ml kit =/or below 120kg Cath Lab IV ONE (08:56)
[2020-05-18] MEDS ORDERED: clopidogrel 300mg tablet ONE (09:43)
[2020-05-18] MEDS ORDERED: normal saline 1000ml 1,000 ML IV ONE (10:25)
[2020-05-18] MEDS ORDERED: HYDROcodone/acetaminophen 5mg/325mg tablet PO PRN (10:25)
[2020-05-18] MEDS ORDERED: HYDROcodone/acetaminophen 10/325mg tab PO PRN (10:25)
--- NOTE | 2020-05-18 11:34 | NUR ---
Pt resting in bed, vs stable. Upon release of 2ml, rt wrist started to bleed, returned 1ml of air to vasc band. Approx 13ml in vasc band now. Site stable, no bleeding. Will continue to monitor. pt vs stable as started.
--- NOTE | 2020-05-18 12:05 | NUR ---
Pt called on light. Stated wrist was "bleeding". 2ml air replaced in band. no s/s of bleeding at this time. Will continue to monitor.
--- NOTE | 2020-05-18 13:20 | NUR ---
Pt sitting up in bed with feet dangling, eating lunch tray. VS stable as charted. Pt denies pain at the site of R wrist, denies pain in general. Will continue to monitor.
--- NOTE | 2020-05-18 13:30 | NUR ---
Communicated to Vicky STARK about vascular band bleeding, all questions answered. Site stable, pt denies pain, vs stable as charted. Vicky will reassess and attempt to release air at 1400.
--- NOTE | 2020-05-18 13:36 | NUR ---
Problems reprioritized. Patient report given, questions answered & plan of care reviewed with Vicky STARK and student nurse from [facility].
== END 2020-05-18 18:50 | disposition home or self-care (01) ==
LOC: SSTAY O 06:35
PROVIDERS: ATTEND Internal Medicine Cardiovascular Disease
DX: I25.10 Atherosclerotic heart disease of native coronary artery without angina pectoris (principal); I35.0 Nonrheumatic aortic (valve) stenosis; I10 Essential (primary) hypertension; E78.5 Hyperlipidemia, unspecified; G47.33 Obstructive sleep apnea (adult) (pediatric); E11.40 Type 2 diabetes mellitus with diabetic neuropathy, unspecified; Z98.890 Other specified postprocedural states; Z95.5 Presence of coronary angioplasty implant and graft; Z79.899 Other long term (current) drug therapy; I25.2 Old myocardial infarction; Z79.82 Long term (current) use of aspirin; Z79.01 Long term (current) use of anticoagulants; I34.2 Nonrheumatic mitral (valve) stenosis
CPT/HCPCS: 36415; 76937; 80048; 82803; 82948; 85014; 85025; 85347; 85610; 85730; 92920; 93005; 93460; 93571; C1725; C1751; C1769; C1874; C1894; C9600; J0153; J1644; J2001; J2250; J2405; J3010; J7030; Q0163; Q9967; 93458; 99152; 99153; A4620; A5120; A6258; J3490

== ENCOUNTER 2020-05-19 13:42 | Observation (INO) | payer MEDICARE, MEDICAID ==
[~2020-05-19] VITALS: Ht 165.1 cm; Wt 85.0 kg
[~2020-05-19 13:42] MED LIST changes: -HYDR-4383 PO; -INSU100I38; +INSU100V39 SQ; -MELA1TAB28 PO; -NITR0.4T51 SL; -TEMA15CA5 PO; +magnesium PO
[2020-05-19 14:34] LABS: BASOPHILS # (AUTO) 0.1 X10'3 (0-0.2); BASOPHILS % (AUTO) 1.5 % (0-1); EOSINOPHILS # (AUTO) 0.2 X10'3 (0-0.9); EOSINOPHILS % (AUTO) 2.4 % (0-6); HEMOGLOBIN 12.2 g/dl (12.0-16.0); LYMPHOCYTES # (AUTO) 1.7 X10'3 (1.1-4.8); LYMPHOCYTES % (AUTO) 19.5 % (21-51); MEAN CORPUSCULAR HEMOGLOBIN 28.4 PG (27.0-31.0); MEAN CORPUSCULAR HGB CONC 33.8 g/dL (33.0-36.5); MEAN PLATELET VOLUME 9.8 FL (7.4-10.4); MONOCYTES # (AUTO) 1.1 X10'3 (0-0.9); MONOCYTES % (AUTO) 12.3 % (2-12); NEUTROPHILS # (AUTO) 5.6 X10'3 (1.8-7.7); NEUTROPHILS % (AUTO) 64.3 % (42-75); PLATELET COUNT 138 X10'3 (140-440); RED BLOOD COUNT 4.29 X10'6 (4.20-5.60); RED CELL DISTRIBUTION WIDTH 14.3 % (11.5-14.5); WHITE BLOOD COUNT 8.7 X10'3 (4.5-11.0)
[2020-05-19 14:47] LABS: ALANINE AMINOTRANSFERASE 23 U/L (12-78); ALBUMIN 3.6 G/DL (3.4-5.0); ALKALINE PHOSPHATASE 62 IU/L (46-116); ANION GAP 8 (8-16); ASPARTATE AMINO TRANSFERASE 21 U/L (10-37); BILIRUBIN,TOTAL 0.6 MG/DL (0.1-1.0); BLOOD UREA NITROGEN 27 MG/DL (7-18); CALCIUM 9.1 MG/DL (8.5-10.1); CHLORIDE 103 MMOL/L (99-107); CREATININE 1.42 MG/DL (0.40-0.90); GLUCOSE 279 MG/DL (70-104); POTASSIUM 4.6 MMOL/L (3.5-5.1); SODIUM 138 MMOL/L (135-145); TOTAL PROTEIN 7.3 G/DL (6.4-8.2); eGFR 37 ML/MIN
[2020-05-19] MEDS ORDERED: normal saline 1000ml 1,000 ML IV ONE (15:40)
[2020-05-19] MEDS: nitroGLYCERIN 0.4mg SUBLingual tab SL PRN (16:49)
--- NOTE | 2020-05-19 19:19 | NUR ---
PT GIVEN FOOD AND WATER UPON REQUEST. PT WORRIED ABOUT BG INCREASING TO 278. PT STATES FOR THE FOOD AND THE BG 278 SHE WOULD NORMALLY ADMINISTER 22 UNITS OF REGULAR INSULIN. WILL CONSULT WITH YARELIS DOSS
[2020-05-19] MEDS ORDERED: magnesium 2GM in 50ml NS 50 ML IV PRN (19:20)
[2020-05-19] MEDS ORDERED: acetaminophen 325mg tablet PO PRN (19:20)
[2020-05-19] MEDS ORDERED: potassium Cl 40MEQ/1/2NS 520ml 520 ML IV PRN ×2 (19:20)
[2020-05-19] MEDS ORDERED: morphine 2 MG/ML inj. syringe IV PRN (19:20)
[2020-05-19] MEDS ORDERED: magnesium Cl slow-release 64mg tablet PO PRN (19:20)
[2020-05-19] MEDS ORDERED: magnesium 4gm in 100ml NS 100 ML IV PRN (19:20)
[2020-05-19] MEDS ORDERED: potassium Cl 20 mEq SR tablet PO PRN ×2 (19:20)
[2020-05-19] MEDS ORDERED: ondansetron/PF 4mg/2ml inj IV PRN (19:20)
[2020-05-19] MEDS ORDERED: insulin NPH/REG insulin (NovoLIN 70/30) 10ml vial SQ SCH (19:40)
[2020-05-19] MEDS ORDERED: insulin regular, human 10 units/0.1 ml syringe SQ ONE (19:50)
[2020-05-19] MEDS: docusate sod 100mg capsule PO SCH (20:00)
[2020-05-19] MEDS: K and/or MAG REPLACEMENT MC SCH (20:00)
--- NOTE | 2020-05-19 20:02 | NUR ---
Radha, Associate Professor Physician made aware that the patient wants to know when she is getting a room. Tess STARK made aware that HS doesn't have a definative time line as of right now.
--- NOTE | 2020-05-19 20:12 | NUR ---
PT WAS GOING TO LEAVE AMA. ADDRESSED CONCERNS OF WHY SHE WANTED TO LEAVE. ASSURED PT THAT SHE WILL BE GETTING HOSPITAL BED, THAT COVID PATIENTS ARE , AND CLAUSTOPHOBIA OF ROOM WILL BE ADDRESSED AND TREATED. PT DECIDED TO STAY. PUBLICATIONS INSPECTOR MADE AWARE
[2020-05-19] MEDS ORDERED: LORazepam 2 mg/ml vial IV ONE (20:20)
--- NOTE | 2020-05-19 21:50 | NUR ---
Patient in ER. I have received report from Tess Boyle and had the opportunity to ask questions and assume patient care.
[2020-05-19 22:17] VITALS: BP 137/68
[2020-05-20] VITALS (10 sets, daily range): BP systolic 112–176; BP diastolic 63–143
[2020-05-20] MEDS ORDERED: dextrose 50%-water 50ml dispensing syringe IV PRN ×2 (00:05)
[2020-05-20] MEDS ORDERED: glucagon, human recombinant 1mg kit SUBCUT PRN (00:05)
[2020-05-20] MEDS ORDERED: MESSAGE TO PHARMACY PO ONE (00:05)
[2020-05-20] MEDS ORDERED: dextrose ORAL solution 15 GM/59 ML bottle PO PRN ×2 (00:05)
[2020-05-20] MEDS: normal saline 1000ml 1,000 ML IV SCH ×2 (02:00→22:03)
[2020-05-20 03:09] LABS: BASOPHILS # (AUTO) 0.1 X10'3 (0-0.2); BASOPHILS % (AUTO) 1.2 % (0-1); EOSINOPHILS # (AUTO) 0.2 X10'3 (0-0.9); LYMPHOCYTES # (AUTO) 2.2 X10'3 (1.1-4.8); LYMPHOCYTES % (AUTO) 30.3 % (21-51); MEAN CORPUSCULAR HGB CONC 33.4 g/dL (33.0-36.5); MEAN CORPUSCULAR VOLUME 83.8 FL (78-98); MEAN PLATELET VOLUME 10.2 FL (7.4-10.4); MONOCYTES # (AUTO) 0.9 X10'3 (0-0.9); MONOCYTES % (AUTO) 12.7 % (2-12); NEUTROPHILS # (AUTO) 3.7 X10'3 (1.8-7.7); NEUTROPHILS % (AUTO) 52.8 % (42-75); PLATELET COUNT 115 X10'3 (140-440); RED BLOOD COUNT 3.94 X10'6 (4.20-5.60); RED CELL DISTRIBUTION WIDTH 14.2 % (11.5-14.5); WHITE BLOOD COUNT 7.1 X10'3 (4.5-11.0)
[2020-05-20 03:25] LABS: ALBUMIN 3.2 G/DL (3.4-5.0); ANION GAP 8 (8-16); BLOOD UREA NITROGEN 29 MG/DL (7-18); BUN/CREATININE RATIO 30.5 (6.6-38.0); CALCIUM 8.9 MG/DL (8.5-10.1); CHLORIDE 105 MMOL/L (99-107); CREATININE 0.95 MG/DL (0.40-0.90); GLUCOSE 280 MG/DL (70-104); HEMOGLOBIN A1C 8.7 % (4.5-6.2); MAGNESIUM 2.1 MG/DL (1.5-2.4); POTASSIUM 3.9 MMOL/L (3.5-5.1); SODIUM 139 MMOL/L (135-145); TOTAL CARBON DIOXIDE 25.9 MMOL/L (24-32); eGFR 59 ML/MIN
--- NOTE | 2020-05-20 05:40 | NUR ---
patient in stable condition, patient has been resting all night and has not complained of any complications
--- NOTE | 2020-05-20 06:32 | NUR ---
Problems reprioritized. Patient report given, questions answered & plan of care reviewed with Zina STARK.
--- NOTE | 2020-05-20 07:09 | NUR ---
Patient in room MED 316. I have received report from MI Marinelli and had the opportunity to ask questions and assume patient care.
[2020-05-20] MEDS: docusate sod 100mg capsule PO SCH ×2 (08:00→19:22)
[2020-05-20] MEDS: K and/or MAG REPLACEMENT MC SCH ×2 (08:00→20:00)
[2020-05-20] MEDS ORDERED: non-formulary drug (Vitamin B Complex (B Complex) 1 TAB) PO SCH (08:00)
[2020-05-20] MEDS: Icosapent Ethyl (Vascepa) 2 CAP) PO SCH ×2 (08:00→20:00)
[2020-05-20] MEDS: gabapentin 300mg capsule PO SCH ×2 (09:00→19:21)
[2020-05-20] MEDS: aspirin 81mg tablet.DR PO SCH (09:00)
[2020-05-20] MEDS: clopidogrel 75mg tablet PO SCH (09:00)
[2020-05-20] MEDS: multivitamins, therapeutics tablet PO SCH (09:01)
[2020-05-20] MEDS: carVEDilol 12.5mg tablet PO SCH ×2 (09:01→19:21)
[2020-05-20] MEDS: pantoprazole 40mg Tablet.DR PO SCH (09:01)
[2020-05-20] MEDS: insulin Lispro (HumaLOG) vial - multi-dose SQ SCH ×4 (09:11→21:53)
--- NOTE | 2020-05-20 15:12 | NUR ---
RM 316. Pt. Elicia Finley. pt. stated that you discussed anxiety medication with her. pt. keeps asking us if it has been ordered yet? please advise. Zina [phone]
--- NOTE | 2020-05-20 15:56 | NUR ---
DM Consult: Pt has hx of IDDM, received DM education at [facility] on 12/2019 with the A1c of 11.4%. Pt current A1c is 8.7%. Visited pt at bed side, validated written and verbal DM education received, reports taking insulin consistently.internist medical doctor md provided verbal and written Mediterranean diet, per pt requests. Pt verbalized understanding of the education. Will continue to monitor and provide full assessment on 05/24. Addendum: 05/20/20 at 1557 by Kirt Jaramillo [address] Amended: Links added. Addendum: 05/20/20 at [address] RD agree with supervisor international reservations note
[2020-05-20] MEDS: nitroGLYCERIN 0.4mg SUBLingual tab SL PRN (17:18)
[2020-05-20] MEDS ORDERED: OXAZEpam 15mg capsule PO PRN (17:40)
--- NOTE | 2020-05-20 18:40 | NUR ---
Problems reprioritized. Patient report given, questions answered & plan of care reviewed with MI Marinelli.
--- NOTE | 2020-05-20 18:41 | NUR ---
Patient in room MED 316. I have received report from Zina STARK and had the opportunity to ask questions and assume patient care.
[2020-05-20] MEDS: amLODIPine 5mg tablet PO SCH (19:21)
[2020-05-20] MEDS ORDERED: losartan 50mg tablet PO SCH (21:00)
[2020-05-20] MEDS ORDERED: insulin glargine (Lantus) pen - multi-dose SQ SCH (21:00)
--- NOTE | 2020-05-21 01:59 | NUR ---
PAGER ID: [phone] MESSAGE: Shala Finley, 64F, admitted for chest pain after stent placement, has blood pressure 177/76 with no PRN medications. Isis ext [phone]
[2020-05-21 02:00] VITALS: BP 177/76
--- NOTE | 2020-05-21 02:03 | NUR ---
Spoke to odette Giles for patient to have 5 mg hydralazine IV q 6 hrs for high blood pressure. no other orders
[2020-05-21] MEDS ORDERED: hydrALAZINE 20mg/ml inj. IV PRN (02:05)
[2020-05-21 02:15] VITALS: BP 151/69
--- NOTE | 2020-05-21 06:14 | NUR ---
Problems reprioritized. Patient report given, questions answered & plan of care reviewed with Huy Linares.
[2020-05-21 06:44] VITALS: BP 152/63
[2020-05-21] MEDS ORDERED: nitroGLYCERIN 0.4mg/hour patch TD SCH (08:00)
[2020-05-21] MEDS: Icosapent Ethyl (Vascepa) 2 CAP) PO SCH (08:00)
[2020-05-21] MEDS: K and/or MAG REPLACEMENT MC SCH (08:00)
[2020-05-21 08:03] LABS: BASOPHILS # (AUTO) 0.1 X10'3 (0-0.2); BASOPHILS % (AUTO) 1.2 % (0-1); EOSINOPHILS # (AUTO) 0.2 X10'3 (0-0.9); EOSINOPHILS % (AUTO) 2.9 % (0-6); HEMATOCRIT 36.8 % (35.0-45.0); HEMOGLOBIN 12.3 g/dl (12.0-16.0); LYMPHOCYTES # (AUTO) 1.9 X10'3 (1.1-4.8); LYMPHOCYTES % (AUTO) 24.4 % (21-51); MEAN CORPUSCULAR HGB CONC 33.3 g/dL (33.0-36.5); MEAN CORPUSCULAR VOLUME 84.2 FL (78-98); MEAN PLATELET VOLUME 10.3 FL (7.4-10.4); MONOCYTES # (AUTO) 0.7 X10'3 (0-0.9); MONOCYTES % (AUTO) 8.8 % (2-12); NEUTROPHILS % (AUTO) 62.7 % (42-75); PLATELET COUNT 134 X10'3 (140-440); RED BLOOD COUNT 4.37 X10'6 (4.20-5.60); RED CELL DISTRIBUTION WIDTH 14.3 % (11.5-14.5); WHITE BLOOD COUNT 7.9 X10'3 (4.5-11.0)
[2020-05-21 08:12] LABS: ALBUMIN 3.5 G/DL (3.4-5.0); ANION GAP 8 (8-16); BLOOD UREA NITROGEN 19 MG/DL (7-18); CALCIUM 9.4 MG/DL (8.5-10.1); CHLORIDE 102 MMOL/L (99-107); CREATININE 0.76 MG/DL (0.40-0.90); GLUCOSE 375 MG/DL (70-104); MAGNESIUM 2.1 MG/DL (1.5-2.4); POTASSIUM 4.5 MMOL/L (3.5-5.1); SODIUM 136 MMOL/L (135-145); eGFR 76 ML/MIN
[2020-05-21] MEDS: clopidogrel 75mg tablet PO SCH (08:21)
[2020-05-21] MEDS: multivitamins, therapeutics tablet PO SCH (08:21)
[2020-05-21] MEDS: pantoprazole 40mg Tablet.DR PO SCH (08:21)
[2020-05-21] MEDS: docusate sod 100mg capsule PO SCH (08:21)
[2020-05-21] MEDS: aspirin 81mg tablet.DR PO SCH (08:21)
[2020-05-21] MEDS: carVEDilol 12.5mg tablet PO SCH (08:22)
[2020-05-21] MEDS: amLODIPine 5mg tablet PO SCH (08:22)
[2020-05-21] MEDS: gabapentin 300mg capsule PO SCH (08:22)
[2020-05-21] MEDS: insulin Lispro (HumaLOG) vial - multi-dose SQ SCH (08:31)
[2020-05-21] MEDS ORDERED: NITR1PAT68 TD (09:41)
[2020-05-21] MEDS ORDERED: NOR5T PO (09:41)
[2020-05-21 11:11] VITALS: BP 102/59
--- NOTE | 2020-05-21 11:12 | NUR ---
Pt hypotensive at 70/41 L 83/49 R Symptomatic with dizzy, lightheadd and just doesn't feel right. Nitro patch removed. Dr. Song paged. Discharge on hold at this time.
== END 2020-05-21 15:14 | disposition home health service (06) ==
LOC: ER 13:43 → ED HOLD 19:33 → MED 3N 22:00
PROVIDERS: ADMIT Internal Medicine; ATTEND Family Medicine
DX: I25.119 Atherosclerotic heart disease of native coronary artery with unspecified angina pectoris (principal); R42 Dizziness and giddiness; N17.9 Acute kidney failure, unspecified; I12.9 Hypertensive chronic kidney disease with stage 1 through stage 4 chronic kidney disease, or unspecified chronic kidney disease; E11.22 Type 2 diabetes mellitus with diabetic chronic kidney disease; N18.9 Chronic kidney disease, unspecified; E11.43 Type 2 diabetes mellitus with diabetic autonomic (poly)neuropathy; E11.65 Type 2 diabetes mellitus with hyperglycemia; E78.5 Hyperlipidemia, unspecified; F41.9 Anxiety disorder, unspecified; I25.2 Old myocardial infarction; Z86.73 Personal history of transient ischemic attack (TIA), and cerebral infarction without residual deficits; Z90.710 Acquired absence of both cervix and uterus; Z90.49 Acquired absence of other specified parts of digestive tract; Z95.5 Presence of coronary angioplasty implant and graft; Z79.02 Long term (current) use of antithrombotics/antiplatelets; Z79.4 Long term (current) use of insulin; Z79.82 Long term (current) use of aspirin; Z79.899 Other long term (current) drug therapy; Z88.5 Allergy status to narcotic agent; Z88.8 Allergy status to other drugs, medicaments and biological substances
CPT/HCPCS: 36415; 71045; 80048; 80053; 82948; 83036; 83735; 83880; 84484; 85025; 87081; 93005; 96361; 96374; 96375; 99285; G0378; J0360; J1815; J2060; J7030

== ENCOUNTER 2021-01-13 09:26 | Outpatient (CLI) | payer MEDICARE, MEDICAID ==
[~2021-01-13 09:26] MED LIST changes: +CARV-49 PO; -CARV6.253 PO; +CHOL400T57 PO; -LOSA25TA96 PO; +RANO500T3 PO; -ROSU40TA PO
== END 2021-01-13 23:59 | disposition home or self-care (01) ==
LOC: RAD 09:26
PROVIDERS: ATTEND Family Medicine
DX: M47.22 Other spondylosis with radiculopathy, cervical region (principal); M43.12 Spondylolisthesis, cervical region; M48.02 Spinal stenosis, cervical region; M25.78 Osteophyte, vertebrae
CPT/HCPCS: 72141

== ENCOUNTER 2021-01-16 14:15 | Emergency (ER) | payer MEDICARE, MEDICAID ==
[~2021-01-16] VITALS: Ht 165.1 cm; Wt 82.7 kg
[2021-01-16 14:25] VITALS: BP 150/90
[2021-01-16 14:58] LABS: BASOPHILS # (AUTO) 0.1 X10'3 (0-0.2); BASOPHILS % (AUTO) 1.2 % (0-1); EOSINOPHILS # (AUTO) 0.2 X10'3 (0-0.9); EOSINOPHILS % (AUTO) 1.7 % (0-6); HEMATOCRIT 38.5 % (35.0-45.0); HEMOGLOBIN 13.3 g/dl (12.0-16.0); LYMPHOCYTES # (AUTO) 1.2 X10'3 (1.1-4.8); LYMPHOCYTES % (AUTO) 13.1 % (21-51); MEAN CORPUSCULAR HEMOGLOBIN 29.8 PG (27.0-31.0); MEAN CORPUSCULAR HGB CONC 34.5 g/dL (33.0-36.5); MEAN CORPUSCULAR VOLUME 86.2 FL (78-98); MEAN PLATELET VOLUME 9.4 FL (7.4-10.4); MONOCYTES % (AUTO) 11.7 % (2-12); NEUTROPHILS # (AUTO) 6.4 X10'3 (1.8-7.7); NEUTROPHILS % (AUTO) 72.3 % (42-75); PLATELET COUNT 118 X10'3 (140-440); RED BLOOD COUNT 4.47 X10'6 (4.20-5.60); WHITE BLOOD COUNT 8.9 X10'3 (4.5-11.0)
[2021-01-16 15:15] LABS: ALANINE AMINOTRANSFERASE 26 U/L (12-78); ALBUMIN 3.5 G/DL (3.4-5.0); ALKALINE PHOSPHATASE 74 IU/L (46-116); ANION GAP 8 (8-16); ASPARTATE AMINO TRANSFERASE 17 U/L (10-37); BILIRUBIN,TOTAL 0.5 MG/DL (0.1-1.0); BLOOD UREA NITROGEN 12 MG/DL (7-18); BUN/CREATININE RATIO 13.3 (6.6-38.0); CALCIUM 8.5 MG/DL (8.5-10.1); CHLORIDE 103 MMOL/L (99-107); GLUCOSE 226 MG/DL (70-104); POTASSIUM 4.3 MMOL/L (3.5-5.1); SODIUM 140 MMOL/L (135-145); TOTAL CARBON DIOXIDE 28.7 MMOL/L (24-32); TOTAL PROTEIN 7.1 G/DL (6.4-8.2); eGFR 63 ML/MIN
[2021-01-16] MEDS ORDERED: BENZ-16 PO (16:11)
[2021-01-16] MEDS ORDERED: AZIT-83 PO (16:11)
== END 2021-01-16 16:31 | disposition home or self-care (01) ==
LOC: ER 14:16
DX: J18.9 Pneumonia, unspecified organism (principal); R05.9 Cough, unspecified; J02.9 Acute pharyngitis, unspecified; I25.10 Atherosclerotic heart disease of native coronary artery without angina pectoris; I10 Essential (primary) hypertension; I25.2 Old myocardial infarction; E11.9 Type 2 diabetes mellitus without complications; G89.29 Other chronic pain; F41.9 Anxiety disorder, unspecified; Z86.73 Personal history of transient ischemic attack (TIA), and cerebral infarction without residual deficits; Z87.440 Personal history of urinary (tract) infections; Z90.89 Acquired absence of other organs; Z90.49 Acquired absence of other specified parts of digestive tract; Z90.710 Acquired absence of both cervix and uterus; Z72.89 Other problems related to lifestyle; Z56.0 Unemployment, unspecified; Z88.8 Allergy status to other drugs, medicaments and biological substances; Z88.5 Allergy status to narcotic agent; Z79.82 Long term (current) use of aspirin; Z79.4 Long term (current) use of insulin; Z79.899 Other long term (current) drug therapy
CPT/HCPCS: 36415; 71045; 80053; 83880; 84484; 85025; 93005; 99285

== ENCOUNTER 2021-03-03 07:00 | Day surgery (SDC) | payer MEDICARE, MEDICAID ==
[2021-03-02 13:31] LABS: BASOPHILS # (AUTO) 0.1 X10'3 (0-0.2); BASOPHILS % (AUTO) 1.4 % (0-1); EOSINOPHILS # (AUTO) 0.2 X10'3 (0-0.9); EOSINOPHILS % (AUTO) 3.2 % (0-6); HEMATOCRIT 37.9 % (35.0-45.0); HEMOGLOBIN 12.6 g/dl (12.0-16.0); LYMPHOCYTES # (AUTO) 2.2 X10'3 (1.1-4.8); LYMPHOCYTES % (AUTO) 33.1 % (21-51); MEAN CORPUSCULAR HEMOGLOBIN 28.7 PG (27.0-31.0); MEAN CORPUSCULAR HGB CONC 33.2 g/dL (33.0-36.5); MEAN CORPUSCULAR VOLUME 86.4 FL (78-98); MEAN PLATELET VOLUME 9.6 FL (7.4-10.4); MONOCYTES # (AUTO) 0.6 X10'3 (0-0.9); MONOCYTES % (AUTO) 9.2 % (2-12); NEUTROPHILS # (AUTO) 3.6 X10'3 (1.8-7.7); NEUTROPHILS % (AUTO) 53.1 % (42-75); PLATELET COUNT 132 X10'3 (140-440); RED BLOOD COUNT 4.39 X10'6 (4.20-5.60); RED CELL DISTRIBUTION WIDTH 14.3 % (11.5-14.5); WHITE BLOOD COUNT 6.7 X10'3 (4.5-11.0)
[2021-03-02 13:40] LABS: ALBUMIN 3.7 G/DL (3.4-5.0); ANION GAP 5 (8-16); BLOOD UREA NITROGEN 19 MG/DL (7-18); BUN/CREATININE RATIO 19.6 (6.6-38.0); CALCIUM 8.9 MG/DL (8.5-10.1); CHLORIDE 105 MMOL/L (99-107); CREATININE 0.97 MG/DL (0.40-0.90); GLUCOSE 302 MG/DL (70-104); POTASSIUM 4.9 MMOL/L (3.5-5.1); SODIUM 140 MMOL/L (135-145); TOTAL CARBON DIOXIDE 30.4 MMOL/L (24-32); eGFR 57 ML/MIN
[2021-03-02 13:44] LABS: PARTIAL THROMBOPLASTIN TIME 27 SECONDS (22-32)
[2021-03-03] VITALS (13 sets, daily range): BP systolic 110–161; BP diastolic 59–85
[~2021-03-03] VITALS: Ht 165.1 cm; Wt 87.9 kg
[2021-03-03] MEDS ORDERED: diphenhydrAMINE 25mg capsule PO PRN (07:15)
[2021-03-03] MEDS ORDERED: acetylcysteine 200 MG/ml 4ml vial PO PRN (07:15)
[2021-03-03] MEDS ORDERED: LORazepam 0.5 MG tablet PO PRN (08:00)
[2021-03-03] MEDS ORDERED: LIDOcaine/PRILOcaine 5gm cream TP ONE (08:00)
[2021-03-03] MEDS ORDERED: ROSU20TA2 PO (08:06)
[2021-03-03] MEDS: normal saline 1,000 ML IV SCH ×2 (08:12→17:01)
[2021-03-03] MEDS ORDERED: verapamil 2.5 mg/ml inj IV ONE (09:39)
[2021-03-03] MEDS ORDERED: nitroGLYCERIN-Tridil 50MG/D5W 250 ML IV ONE (09:39)
[2021-03-03] MEDS ORDERED: fentaNYL/PF 50MCG/1 ML 2ML syringe ONE (09:39)
[2021-03-03] MEDS ORDERED: midazolam 1 mg/ML 2ml injection ONE (09:39)
[2021-03-03] MEDS ORDERED: LIDOcaine 1% (10mg/ml)w/preservative injection 20ml MDV ONE (09:39)
[2021-03-03] MEDS ORDERED: iohexol 350 MG/ML 50ML vial IV ONE (09:40)
[2021-03-03] MEDS ORDERED: heparin 1,000unit/ml 10ml vial 10 ML ONE (09:40)
[2021-03-03] MEDS ORDERED: iohexol 350MG/ML 100ml bottle IV ONE ×2 (09:40→10:49)
[2021-03-03] MEDS ORDERED: heparin 25,000 UNIT/250ml bag 250 ML IV ONE (10:56)
[2021-03-03] MEDS ORDERED: clopidogrel 300mg tablet ONE (11:27)
[2021-03-03] MEDS ORDERED: ondansetron/PF 4mg/2ml inj IV PRN (12:10)
[2021-03-03] MEDS ORDERED: HYDROcodone/acetaminophen 5mg/325mg tablet PO PRN (12:10)
[2021-03-03] MEDS ORDERED: HYDROcodone/acetaminophen 10/325mg tab PO PRN (12:10)
[2021-03-03] MEDS ORDERED: magnesium hydroxide 30ml (MOM) UD suspension PO PRN (12:15)
[2021-03-03] MEDS ORDERED: aspirin 81mg tab.chew PO ONE (12:15)
[2021-03-03] MEDS ORDERED: acetaminophen 325mg tablet PO PRN ×2 (12:15)
[2021-03-03] MEDS ORDERED: OXAZEpam 15mg capsule PO PRN (12:15)
[2021-03-03] MEDS ORDERED: cyclobenzaprine 10mg tablet PO PRN (12:15)
[2021-03-04] MEDS ORDERED: aspirin 81mg, enteric-coated 1 TAB TABLET.DR PO SCH (08:00)
[2021-03-04] MEDS ORDERED: clopidogrel 75mg tablet PO SCH (08:00)
== END 2021-03-03 18:00 | disposition home or self-care (01) ==
LOC: SSTAY O 07:00
PROVIDERS: ATTEND Internal Medicine Cardiovascular Disease
DX: R94.39 Abnormal result of other cardiovascular function study (principal); R53.83 Other fatigue; R06.02 Shortness of breath; T82.855A Stenosis of coronary artery stent, initial encounter; I25.10 Atherosclerotic heart disease of native coronary artery without angina pectoris; I10 Essential (primary) hypertension; G47.33 Obstructive sleep apnea (adult) (pediatric); F41.9 Anxiety disorder, unspecified; E11.40 Type 2 diabetes mellitus with diabetic neuropathy, unspecified; I47.2 Ventricular tachycardia; I65.29 Occlusion and stenosis of unspecified carotid artery; I08.0 Rheumatic disorders of both mitral and aortic valves; E78.49 Other hyperlipidemia; F17.210 Nicotine dependence, cigarettes, uncomplicated; Z90.81 Acquired absence of spleen; Z98.890 Other specified postprocedural states; Z88.5 Allergy status to narcotic agent; Z88.8 Allergy status to other drugs, medicaments and biological substances; Z79.899 Other long term (current) drug therapy; Z95.5 Presence of coronary angioplasty implant and graft; Z79.82 Long term (current) use of aspirin; Z79.01 Long term (current) use of anticoagulants; Z82.49 Family history of ischemic heart disease and other diseases of the circulatory system; Y83.8 Other surgical procedures as the cause of abnormal reaction of the patient, or of later complication, without mention of misadventure at the time of the procedure; Y92.89 Other specified places as the place of occurrence of the external cause
CPT/HCPCS: 36415; 76937; 80048; 82948; 85025; 85347; 85610; 85730; 93005; 93458; 99152; 99153; C1725; C1751; C1769; C1874; C1894; C9600; J1644; J2001; J2250; J3010; J7030; Q0163; Q9967; A4620; A5120; A6258; J3490

== ENCOUNTER 2021-06-11 16:32 | Emergency (ER) | payer MEDICARE, MEDICAID ==
[~2021-06-11] VITALS: Ht 165.1 cm; Wt 81.8 kg
[~2021-06-11 16:32] MED LIST changes: -CHOL400T57 PO; -DEXL60CA3 PO; +LIDOcaine 1% W/epiNEPHrine 1:100,000 20ml vial ONE; +ROSU20TA2 PO; -VITA-268 PO
[2021-06-11 16:55] VITALS: BP 15/72
[2021-06-11] MEDS ORDERED: SULF1TAB45 PO (17:56)
[2021-06-11] MEDS ORDERED: sulfamethoxazole/trimethoprim DS (800/160mg) tablet PO ONE (18:05)
== END 2021-06-11 18:19 | disposition home or self-care (01) ==
LOC: ER 16:32
DX: L02.413 Cutaneous abscess of right upper limb (principal); I25.10 Atherosclerotic heart disease of native coronary artery without angina pectoris; I10 Essential (primary) hypertension; I25.2 Old myocardial infarction; E11.9 Type 2 diabetes mellitus without complications; G89.29 Other chronic pain; Z86.73 Personal history of transient ischemic attack (TIA), and cerebral infarction without residual deficits; Z87.19 Personal history of other diseases of the digestive system; Z90.49 Acquired absence of other specified parts of digestive tract; Z95.5 Presence of coronary angioplasty implant and graft; Z90.710 Acquired absence of both cervix and uterus; Z56.0 Unemployment, unspecified; Z72.89 Other problems related to lifestyle; Z88.8 Allergy status to other drugs, medicaments and biological substances; Z88.5 Allergy status to narcotic agent; Z79.82 Long term (current) use of aspirin; Z79.899 Other long term (current) drug therapy
CPT/HCPCS: 10060; 99284; J3490

== ENCOUNTER 2021-06-25 16:47 | Emergency (ER) | payer MEDICARE, MEDICAID ==
[~2021-06-25] VITALS: Ht 165.1 cm; Wt 80.0 kg
[~2021-06-25 16:47] MED LIST changes: -LIDOcaine 1% W/epiNEPHrine 1:100,000 20ml vial ONE
[2021-06-25 16:51] VITALS: BP 136/83
[2021-06-25] MEDS ORDERED: ketorolac tromethamine 15mg/ml inj. IM ONE (17:40)
== END 2021-06-25 19:04 | disposition home or self-care (01) ==
LOC: ER 16:48
DX: M79.642 Pain in left hand (principal); M79.645 Pain in left finger(s); R22.32 Localized swelling, mass and lump, left upper limb; I25.10 Atherosclerotic heart disease of native coronary artery without angina pectoris; I10 Essential (primary) hypertension; I25.2 Old myocardial infarction; E11.9 Type 2 diabetes mellitus without complications; G89.29 Other chronic pain; Z86.73 Personal history of transient ischemic attack (TIA), and cerebral infarction without residual deficits; Z87.19 Personal history of other diseases of the digestive system; Z95.5 Presence of coronary angioplasty implant and graft; Z90.49 Acquired absence of other specified parts of digestive tract; Z98.891 History of uterine scar from previous surgery; Z90.710 Acquired absence of both cervix and uterus; Z56.0 Unemployment, unspecified; Z72.89 Other problems related to lifestyle; Z88.8 Allergy status to other drugs, medicaments and biological substances; Z79.82 Long term (current) use of aspirin; Z79.4 Long term (current) use of insulin; Z79.899 Other long term (current) drug therapy
CPT/HCPCS: 29515; 73130; 96372; 99284; J1885

== ENCOUNTER 2021-10-07 08:51 | Emergency (ER) | payer MEDICARE, MEDICAID ==
[~2021-10-07] VITALS: Ht 165.1 cm; Wt 81.4 kg
[2021-10-07 09:52] LABS: BASOPHILS # (AUTO) 0.1 X10'3 (0-0.2); BASOPHILS % (AUTO) 1.2 % (0-1); EOSINOPHILS # (AUTO) 0.1 X10'3 (0-0.9); HEMATOCRIT 39.5 % (35.0-45.0); HEMOGLOBIN 13.4 g/dl (12.0-16.0); LYMPHOCYTES # (AUTO) 1.6 X10'3 (1.1-4.8); LYMPHOCYTES % (AUTO) 22.8 % (21-51); MEAN CORPUSCULAR VOLUME 85.3 FL (78-98); MEAN PLATELET VOLUME 9.9 FL (7.4-10.4); MONOCYTES # (AUTO) 0.7 X10'3 (0-0.9); MONOCYTES % (AUTO) 9.4 % (2-12); NEUTROPHILS # (AUTO) 4.5 X10'3 (1.8-7.7); NEUTROPHILS % (AUTO) 64.6 % (42-75); PLATELET COUNT 146 X10'3 (140-440); RED BLOOD COUNT 4.62 X10'6 (4.20-5.60); RED CELL DISTRIBUTION WIDTH 13.5 % (11.5-14.5)
[2021-10-07 09:59] LABS: ALANINE AMINOTRANSFERASE 24 U/L (12-78); ALBUMIN 3.8 G/DL (3.4-5.0); ALKALINE PHOSPHATASE 80 IU/L (46-116); ANION GAP 7 (8-16); ASPARTATE AMINO TRANSFERASE 18 U/L (10-37); BILIRUBIN,TOTAL 0.5 MG/DL (0.1-1.0); BLOOD UREA NITROGEN 17 MG/DL (7-18); BUN/CREATININE RATIO 21.3 (6.6-38.0); CALCIUM 8.9 MG/DL (8.5-10.1); CHLORIDE 100 MMOL/L (99-107); GLUCOSE 435 MG/DL (70-104); POTASSIUM 4.7 MMOL/L (3.5-5.1); SODIUM 136 MMOL/L (135-145); TOTAL CARBON DIOXIDE 29.1 MMOL/L (24-32); TOTAL PROTEIN 7.6 G/DL (6.4-8.2); eGFR 72 ML/MIN
[2021-10-07] MEDS ORDERED: DOXY100C76 PO (11:32)
[2021-10-07] MEDS ORDERED: CEPH250T PO (11:32)
[2021-10-07 12:09] VITALS: BP 171/86
== END 2021-10-07 12:13 | disposition home or self-care (01) ==
LOC: ER 08:51
DX: E11.621 Type 2 diabetes mellitus with foot ulcer (principal); E11.42 Type 2 diabetes mellitus with diabetic polyneuropathy; I25.10 Atherosclerotic heart disease of native coronary artery without angina pectoris; I10 Essential (primary) hypertension; I25.2 Old myocardial infarction; G89.29 Other chronic pain; F41.9 Anxiety disorder, unspecified; Z86.73 Personal history of transient ischemic attack (TIA), and cerebral infarction without residual deficits; Z87.440 Personal history of urinary (tract) infections; Z90.89 Acquired absence of other organs; Z90.49 Acquired absence of other specified parts of digestive tract; Z90.710 Acquired absence of both cervix and uterus; Z72.89 Other problems related to lifestyle; Z56.0 Unemployment, unspecified; Z88.8 Allergy status to other drugs, medicaments and biological substances; Z88.5 Allergy status to narcotic agent; Z79.82 Long term (current) use of aspirin; Z79.4 Long term (current) use of insulin; Z79.2 Long term (current) use of antibiotics; Z79.899 Other long term (current) drug therapy
CPT/HCPCS: 36415; 73630; 80053; 85025; 99284; A6449

== ENCOUNTER 2022-02-21 13:07 | Day surgery (SDC) | payer MEDICARE, MEDICAID ==
[2022-02-21] VITALS (8 sets, daily range): BP systolic 105–138; BP diastolic 54–70
[~2022-02-21] VITALS: Ht 165.1 cm; Wt 82.1 kg
[2022-02-21] MEDS ORDERED: normal saline 1,000 ML IV SCH (13:35)
[2022-02-21] MEDS ORDERED: diphenhydrAMINE 25mg capsule PO PRN (13:35)
[2022-02-21] MEDS ORDERED: LORazepam 0.5 MG tablet PO PRN (13:35)
[2022-02-21 14:53] LABS: ALBUMIN 3.9 G/DL (3.4-5.0); ANION GAP 12 (8-16); BLOOD UREA NITROGEN 24 MG/DL (7-18); BUN/CREATININE RATIO 26.1 (6.6-38.0); CALCIUM 9.1 MG/DL (8.5-10.1); CHLORIDE 102 MMOL/L (99-107); CREATININE 0.92 MG/DL (0.40-0.90); GLUCOSE 209 MG/DL (70-104); POTASSIUM 3.9 MMOL/L (3.5-5.1); SODIUM 140 MMOL/L (135-145); eGFR 61 ML/MIN
[2022-02-21 14:54] LABS: BASOPHILS # (AUTO) 0.1 X10'3 (0-0.2); EOSINOPHILS # (AUTO) 0.2 X10'3 (0-0.9); EOSINOPHILS % (AUTO) 1.3 % (0-6); HEMATOCRIT 40.3 % (35.0-45.0); HEMOGLOBIN 13.4 g/dl (12.0-16.0); LYMPHOCYTES # (AUTO) 2.5 X10'3 (1.1-4.8); LYMPHOCYTES % (AUTO) 21.9 % (21-51); MEAN CORPUSCULAR HEMOGLOBIN 29.3 PG (27.0-31.0); MEAN CORPUSCULAR HGB CONC 33.3 g/dL (33.0-36.5); MEAN PLATELET VOLUME 9.5 FL (7.4-10.4); MONOCYTES # (AUTO) 0.7 X10'3 (0-0.9); MONOCYTES % (AUTO) 6.2 % (2-12); NEUTROPHILS % (AUTO) 69.6 % (42-75); PLATELET COUNT 189 X10'3 (140-440); RED BLOOD COUNT 4.58 X10'6 (4.20-5.60); RED CELL DISTRIBUTION WIDTH 14.7 % (11.5-14.5); WHITE BLOOD COUNT 11.5 X10'3 (4.5-11.0)
[2022-02-21 14:55] LABS: APTT 26 SECONDS (22-32)
[2022-02-21] MEDS ORDERED: NOVLG SQ (14:58)
[2022-02-21] MEDS ORDERED: NITR0.4T48 SL (14:58)
[2022-02-21] MEDS ORDERED: LOSA25TA41 PO (14:58)
[2022-02-21] MEDS ORDERED: nitroGLYCERIN-Tridil 50MG/D5W 250 ML IV ONE (15:07)
[2022-02-21] MEDS ORDERED: verapamil 2.5 mg/ml inj IV ONE (15:07)
[2022-02-21] MEDS ORDERED: fentaNYL/PF 50MCG/1 ML 2ML syringe ONE (15:08)
[2022-02-21] MEDS ORDERED: midazolam 1 mg/ML 2ml injection ONE (15:08)
[2022-02-21] MEDS ORDERED: iohexol 350MG/ML 100ml bottle IV ONE (15:08)
[2022-02-21] MEDS ORDERED: LIDOcaine 1% 30ml preserv. free vial ONE (15:08)
[2022-02-21] MEDS ORDERED: heparin 1,000unit/ml 10ml vial 10 ML ONE (15:08)
[2022-02-21] MEDS ORDERED: iohexol 350 MG/ML 50ML vial IV ONE (15:08)
[2022-02-21] MEDS ORDERED: LIDOcaine 1% (10mg/ml) 2ml vial ONE (15:15)
[2022-02-21] MEDS ORDERED: BACL20TA PO (15:23)
[2022-02-21] MEDS ORDERED: dextrose 50%-water 50ml dispensing syringe IV ONE ×2 (15:35→17:41)
[2022-02-21] MEDS ORDERED: nitroGLYCERIN 0.4mg SUBLingual tab SL ONE (16:18)
[2022-02-21] MEDS ORDERED: normal saline 1000ml 1,000 ML IV SCH (17:30)
--- NOTE | 2022-02-21 18:00 | NUR ---
Pt having repeated hypoglycemia this visit. States she took a total of 70 units of Novolog prior to coming to hospital because her blood glucose readings were 400's and she "panicked". Education provided to her regarding the risks of insulin overdose. Pt required 25ml of Dextrose 50% for blood glucose of 62, which corrected her hypoglycemia. Pt a little nauseated so iv dose was chosen. call placed to Dr Nam to make aware of her condition. Orders rec. for hypoglycemia management by protocol, as well as patient education. Will continue monitoring.
== END 2022-02-21 20:05 | disposition home or self-care (01) ==
LOC: SSTAY O 13:07
PROVIDERS: ATTEND Internal Medicine Cardiovascular Disease
DX: I25.10 Atherosclerotic heart disease of native coronary artery without angina pectoris (principal); I11.9 Hypertensive heart disease without heart failure; E78.5 Hyperlipidemia, unspecified; E10.42 Type 1 diabetes mellitus with diabetic polyneuropathy; Z95.5 Presence of coronary angioplasty implant and graft; Z87.891 Personal history of nicotine dependence; Z79.4 Long term (current) use of insulin; Z79.82 Long term (current) use of aspirin; Z88.8 Allergy status to other drugs, medicaments and biological substances; Z88.5 Allergy status to narcotic agent; Z98.890 Other specified postprocedural states; Z83.3 Family history of diabetes mellitus; Z82.49 Family history of ischemic heart disease and other diseases of the circulatory system; Z90.710 Acquired absence of both cervix and uterus; Z79.899 Other long term (current) drug therapy; Z79.01 Long term (current) use of anticoagulants
CPT/HCPCS: 36415; 76937; 80048; 82948; 85025; 85610; 85730; 93005; 93458; 99152; 99153; C1769; C1894; J1644; J2250; J3010; J3490; J7030; Q9967; A4620; A6258; A6449; C1725

== ENCOUNTER 2022-05-18 21:41 | Inpatient (IN) | payer MEDICARE, MEDICAID ==
[~2022-05-18] VITALS: Ht 162.6 cm; Wt 88.0 kg
[~2022-05-18 21:41] MED LIST changes: +BACL20TA PO; -INSU100V39 SQ; -INSU300I SQ; +LOSA25TA41 PO; +NITR0.4T48 SL; +NOVLG SQ; -ROSU20TA2 PO; -magnesium PO
[2022-05-19 00:37] LABS: BASOPHILS # (AUTO) 0.1 X10'3 (0-0.2); BASOPHILS % (AUTO) 0.7 % (0-1); EOSINOPHILS # (AUTO) 0.1 X10'3 (0-0.9); EOSINOPHILS % (AUTO) 1.1 % (0-6); HEMATOCRIT 27.1 % (35.0-45.0); HEMOGLOBIN 9.1 g/dl (12.0-16.0); LYMPHOCYTES # (AUTO) 1.8 X10'3 (1.1-4.8); LYMPHOCYTES % (AUTO) 14.7 % (21-51); MEAN CORPUSCULAR HEMOGLOBIN 29.7 PG (27.0-31.0); MEAN CORPUSCULAR HGB CONC 33.4 g/dL (33.0-36.5); MEAN CORPUSCULAR VOLUME 88.8 FL (78-98); MEAN PLATELET VOLUME 8.5 FL (7.4-10.4); MONOCYTES # (AUTO) 1.7 X10'3 (0-0.9); MONOCYTES % (AUTO) 14.1 % (2-12); NEUTROPHILS # (AUTO) 8.6 X10'3 (1.8-7.7); NEUTROPHILS % (AUTO) 69.4 % (42-75); PLATELET COUNT 222 X10'3 (140-440); RED BLOOD COUNT 3.06 X10'6 (4.20-5.60); RED CELL DISTRIBUTION WIDTH 14.4 % (11.5-14.5); WHITE BLOOD COUNT 12.4 X10'3 (4.5-11.0)
[2022-05-19 00:50] LABS: ALANINE AMINOTRANSFERASE 15 U/L (12-78); ALBUMIN/GLOBULIN RATIO 0.5 (1.1-1.5); ALKALINE PHOSPHATASE 96 IU/L (46-116); ANION GAP 8 (8-16); ASPARTATE AMINO TRANSFERASE 15 U/L (10-37); BILIRUBIN,TOTAL 0.5 MG/DL (0.1-1.0); BLOOD UREA NITROGEN 11 MG/DL (7-18); BUN/CREATININE RATIO 17.2 (6.6-38.0); CALCIUM 8.3 MG/DL (8.5-10.1); CHLORIDE 105 MMOL/L (99-107); CREATININE 0.64 MG/DL (0.40-0.90); GLUCOSE 107 MG/DL (70-104); POTASSIUM 3.7 MMOL/L (3.5-5.1); SODIUM 141 MMOL/L (135-145); TOTAL CARBON DIOXIDE 27.7 MMOL/L (24-32); TOTAL PROTEIN 5.9 G/DL (6.4-8.2); eGFR > 90 ML/MIN
[2022-05-19 01:01] LABS: TOTAL CELLS COUNTED 100
[2022-05-19 01:02] LABS: PLATELET ESTIMATE NORMAL
[2022-05-19] MEDS ORDERED: normal saline 1000ml 1,000 ML IV ONE (01:10)
[2022-05-19 02:54] LABS: CLARITY,URINE SLIGHTLY CLOUDY (Clear); COLOR,URINE YELLOW (Yellow); GLUCOSE, URINE NEGATIVE (Neg); KETONES,URINE NEGATIVE (Neg); LEUKOCYTE ESTERASE ,URINE TRACE (Neg); NITRITES, URINE NEGATIVE (Neg); OCCULT BLOOD,URINE NEGATIVE (Neg); PROTEIN,URINE TRACE mg/dl (Neg); UROBILINOGEN,URINE 0.2 E.U/dL (0.2-1.0)
[2022-05-19 02:56] LABS: UA COLLECTION TYPE STRAIGHT CATH
[2022-05-19 03:05] LABS: BACTERIA,URINE FEW /HPF (Neg); RBC,URINE 0-2 /HPF (0-2)
[2022-05-19 03:09] LABS: SQUAMOUS EPITHELIAL CELL,UR FEW /LPF (FEW); TRANSITIONAL EPI CELLS,URINE FEW /HPF; YEAST MANY /HPF (NEGATIVE)
[2022-05-19] MEDS ORDERED: CefTRIAXone/D5W-Rocephin 1gm 50 ML IV ONE (03:55)
[2022-05-19] MEDS ORDERED: magnesium 4gm in 100ml NS 100 ML IV PRN (04:25)
[2022-05-19] MEDS ORDERED: magnesium Cl slow-release 64mg tablet PO PRN (04:25)
[2022-05-19] MEDS ORDERED: potassium Cl 20 mEq SR tablet PO PRN ×2 (04:25)
[2022-05-19] MEDS ORDERED: morphine 2 MG/ML inj. syringe IV PRN (04:25)
[2022-05-19] MEDS ORDERED: potassium Cl 40MEQ/1/2NS 520ml 520 ML IV PRN (04:25)
[2022-05-19] MEDS ORDERED: acetaminophen 325mg tablet PO PRN ×2 (04:25)
[2022-05-19] MEDS: normal saline 1000ml 1,000 ML IV SCH ×3 (04:41→18:01)
[2022-05-19] MEDS ORDERED: SENN8.6T19 PO (06:00)
[2022-05-19] MEDS ORDERED: TRAM50TA2 PO (06:00)
[2022-05-19] MEDS ORDERED: HYDR-3964 PO (06:00)
[2022-05-19] MEDS ORDERED: DEXTROSE 15 GM of carb/4 tabs (each vial/BOTTLE has 4 tablets) PO PRN ×2 (06:20)
[2022-05-19] MEDS ORDERED: glucagon, human recombinant 1mg kit SUBCUT PRN (06:20)
[2022-05-19] MEDS ORDERED: MESSAGE TO PHARMACY PO ONE (06:20)
[2022-05-19] MEDS ORDERED: insulin Lispro (HumaLOG) vial - multi-dose SQ SCH (06:20)
[2022-05-19] MEDS ORDERED: dextrose 50%-water 50ml dispensing syringe IV PRN ×2 (06:20)
[2022-05-19 06:35] LABS: CLARITY,URINE CLOUDY (Clear); COLOR,URINE YELLOW (Yellow); GLUCOSE, URINE NEGATIVE (Neg); KETONES,URINE NEGATIVE (Neg); LEUKOCYTE ESTERASE ,URINE TRACE (Neg); NITRITES, URINE NEGATIVE (Neg); OCCULT BLOOD,URINE SMALL (Neg); PH,URINE 5.5 (4.8-8.0); PROTEIN,URINE TRACE mg/dl (Neg); UROBILINOGEN,URINE 0.2 E.U/dL (0.2-1.0)
[2022-05-19 06:40] LABS: UA COLLECTION TYPE STRAIGHT CATH
[2022-05-19 07:13] LABS: BACTERIA,URINE FEW /HPF (Neg); MUCUS STRANDS NONE SEEN /LPF (Neg); SQUAMOUS EPITHELIAL CELL,UR MANY /LPF (FEW); TRANSITIONAL EPI CELLS,URINE FEW /HPF
[2022-05-19 07:14] LABS: WBC CLUMPS,URINE FEW /HPF (NEGATIVE); YEAST MANY /HPF (NEGATIVE)
[2022-05-19] MEDS: CefTRIAXone 2gm/D5W 50ml BAG 50 ML IV SCH (07:26)
[2022-05-19] MEDS ORDERED: heparin, porcine 5000 units/ml vial SQ SCH (08:00)
[2022-05-19] MEDS ORDERED: DESL5TAB45 PO (10:38)
[2022-05-19] MEDS ORDERED: INSU100V55 SQ (10:38)
[2022-05-19] MEDS ORDERED: INSU100V13 SQ (10:38)
[2022-05-19] MEDS ORDERED: ISOS30TA9 PO (10:38)
[2022-05-19] MEDS ORDERED: POLY119P2 PO (10:38)
[2022-05-19] MEDS ORDERED: CYAN500T71 PO (10:38)
[2022-05-19] MEDS ORDERED: CARV12.529 PO (10:41)
--- NOTE | 2022-05-19 15:07 | NUR ---
DR POSEY AT BEDSIDE, NOTIFIED OF LARGE BLOOD CLOT THAT PASSED RECTALLY. DR GOODWIN CALLED AND NOTIFIED; HEMOGRAM WILL BE ORDERED BY DR GOODWIN
[2022-05-19 15:22] LABS: HEMATOCRIT 29.4 % (35.0-45.0); HEMOGLOBIN 9.6 g/dl (12.0-16.0); MEAN CORPUSCULAR HEMOGLOBIN 29.1 PG (27.0-31.0); MEAN CORPUSCULAR HGB CONC 32.7 g/dL (33.0-36.5); MEAN CORPUSCULAR VOLUME 88.9 FL (78-98); MEAN PLATELET VOLUME 8.7 FL (7.4-10.4); PLATELET COUNT 241 X10'3 (140-440); RED BLOOD COUNT 3.31 X10'6 (4.20-5.60); RED CELL DISTRIBUTION WIDTH 14.5 % (11.5-14.5); WHITE BLOOD COUNT 11.5 X10'3 (4.5-11.0)
[2022-05-19] MEDS ORDERED: PEG 3350/Na sulf,bicarb,Cl/KCl oral sol 4 liter bottle PO ONE ×2 (16:45→19:00)
[2022-05-19 17:15] VITALS: BP 166/83
[2022-05-19] MEDS: HYDROcodone/acetaminophen 5mg/325mg tablet PO PRN ×2 (18:01→23:37)
--- NOTE | 2022-05-19 18:30 | NUR ---
Patient in room GILBERT 348. I have received report from Felicita STARK and had the opportunity to ask questions and assume patient care.
--- NOTE | 2022-05-19 20:00 | NUR ---
foot drop to the right leg per history of back injury Addendum: 05/20/22 at 0417 by Leonor Crain RN Amended: Links added.
--- NOTE | 2022-05-19 20:00 | NUR ---
Bladder scan showed 350 ml's and pt said she hasn't peed except when she is straight cathed since her surgery from 05/08. I called the doctor and she asked me to get pt up to the bsc to see if she can void. I also asked that the doctor address the home meds since it hasn't been done on admit.
[2022-05-19] MEDS ORDERED: sennosides 8.6mg tablet PO PRN (20:15)
[2022-05-19] MEDS: insulin glargine (Lantus) pen - multi-dose SQ SCH (21:00)
[2022-05-19] MEDS ORDERED: temazepam 15mg capsule PO PRN (21:00)
[2022-05-19 22:00] VITALS: BP 178/76
--- NOTE | 2022-05-19 22:45 | NUR ---
Pt was unable to void after she sat on the bsc for about 30 minutes so I paged the doctor again and she gave me order to place the f/c for retention.
[2022-05-19] MEDS: carVEDilol 12.5mg tablet PO SCH (23:21)
[2022-05-19] MEDS: gabapentin 300mg capsule PO SCH (23:21)
[2022-05-19] MEDS: ranolazine 500mg SR tablet (Q12H) PO SCH (23:25)
[2022-05-20] VITALS (51 sets, daily range): BP systolic 74–167; BP diastolic 37–83
[2022-05-20] MEDS: ondansetron/PF 4mg/2ml inj IV PRN ×3 (00:27→22:11)
[2022-05-20] MEDS: normal saline 1000ml 1,000 ML IV SCH ×3 (03:14→22:15)
--- NOTE | 2022-05-20 04:30 | NUR ---
I have been trying to get pt to drink her golyte prep all night and she has only had sips of it and has drank almost 1/2 of bottle and only has had one bm that I know of that was lanny in color.
--- NOTE | 2022-05-20 04:43 | NUR ---
Declined to have insulin even though she met protocol since she is going to be npo for colonoscopy and she did not eat all day or night.
--- NOTE | 2022-05-20 05:15 | NUR ---
pt has got 3/4 of the golyte prep down and still no loose stool.
--- NOTE | 2022-05-20 06:10 | NUR ---
Patient in room GILBERT 348. I have received report from MI Galvez and had the opportunity to ask questions and assume patient care.
--- NOTE | 2022-05-20 06:48 | NUR ---
Problems reprioritized. Patient report given, questions answered & plan of care reviewed with Anabel.
[2022-05-20 07:02] LABS: BASOPHILS # (AUTO) 0.1 X10'3 (0-0.2); BASOPHILS % (AUTO) 0.6 % (0-1); EOSINOPHILS # (AUTO) 0.1 X10'3 (0-0.9); EOSINOPHILS % (AUTO) 1.2 % (0-6); HEMATOCRIT 28.4 % (35.0-45.0); HEMOGLOBIN 9.4 g/dl (12.0-16.0); LYMPHOCYTES # (AUTO) 1.6 X10'3 (1.1-4.8); LYMPHOCYTES % (AUTO) 13.8 % (21-51); MEAN CORPUSCULAR HEMOGLOBIN 29.3 PG (27.0-31.0); MEAN CORPUSCULAR VOLUME 88.7 FL (78-98); MEAN PLATELET VOLUME 8.6 FL (7.4-10.4); MONOCYTES # (AUTO) 1.5 X10'3 (0-0.9); MONOCYTES % (AUTO) 12.4 % (2-12); NEUTROPHILS # (AUTO) 8.6 X10'3 (1.8-7.7); PLATELET COUNT 246 X10'3 (140-440); RED CELL DISTRIBUTION WIDTH 14.4 % (11.5-14.5); WHITE BLOOD COUNT 11.9 X10'3 (4.5-11.0)
[2022-05-20 07:34] LABS: ALANINE AMINOTRANSFERASE 19 U/L (12-78); ALBUMIN 2.2 G/DL (3.4-5.0); ALBUMIN/GLOBULIN RATIO 0.6 (1.1-1.5); ALKALINE PHOSPHATASE 99 IU/L (46-116); ANION GAP 5 (8-16); ASPARTATE AMINO TRANSFERASE 23 U/L (10-37); BILIRUBIN,TOTAL 0.5 MG/DL (0.1-1.0); BLOOD UREA NITROGEN 11 MG/DL (7-18); CHLORIDE 104 MMOL/L (99-107); CREATININE 0.55 MG/DL (0.40-0.90); GLUCOSE 196 MG/DL (70-104); POTASSIUM 3.8 MMOL/L (3.5-5.1); SODIUM 137 MMOL/L (135-145); TOTAL CARBON DIOXIDE 27.9 MMOL/L (24-32); TOTAL PROTEIN 6.1 G/DL (6.4-8.2); eGFR > 90 ML/MIN
[2022-05-20] MEDS ORDERED: isosorbide dinitrate 30mg tablet PO SCH (08:00)
[2022-05-20] MEDS ORDERED: aspirin 81mg, enteric-coated 1 TAB TABLET.DR PO SCH (08:00)
[2022-05-20] MEDS ORDERED: clopidogrel 75mg tablet PO SCH (08:00)
[2022-05-20] MEDS ORDERED: losartan 25mg tablet PO SCH (08:00)
[2022-05-20] MEDS ORDERED: polyethylene glycol 3350 17gm powd pack PO SCH (08:00)
[2022-05-20] MEDS: gabapentin 300mg capsule PO SCH ×2 (08:57→20:00)
[2022-05-20] MEDS: ranolazine 500mg SR tablet (Q12H) PO SCH ×2 (08:57→20:00)
[2022-05-20] MEDS: CefTRIAXone 2gm/D5W 50ml BAG 50 ML IV SCH (08:57)
[2022-05-20] MEDS: carVEDilol 12.5mg tablet PO SCH (08:58)
[2022-05-20] MEDS: HYDROcodone/acetaminophen 5mg/325mg tablet PO PRN (08:59)
--- NOTE | 2022-05-20 13:49 | NUR ---
PAGER ID: [phone] MESSAGE: Jaelyn Surg [phone] Re: Tushar Raji patient passing large blood clot with stool, Do you want an H&H this am was .08/05.4 please call Addendum: 05/20/22 at 1355 by Jaelyn Blanton RN Received orders for H&H now, Dr Rossi also aware I have not heard from GI
--- NOTE | 2022-05-20 14:00 | NUR ---
Spoke to Katharina STARK in GI lab she is aware patients stool is still brown with blood clots. Per Katharina they will come and get her around 1500 via gurney, with oxygen.
--- NOTE | 2022-05-20 15:20 | NUR ---
ARRIVED IN GI LAB FOR COLONOSCOPY. LARGE AMOUNT OF BLOOD WITH CLOTS IN BED. BP131/75 HEART RATE 68. PRIMARY RN CALLED HOSPITALIST REG BLEEDING, ORDERED 2UPC.
--- NOTE | 2022-05-20 15:30 | NUR ---
CAME TO GI LAB AT 1530 VS,
[2022-05-20 15:40] LABS: HEMATOCRIT 23.4 % (35.0-45.0); HEMOGLOBIN 7.8 g/dl (12.0-16.0); MEAN CORPUSCULAR HEMOGLOBIN 29.6 PG (27.0-31.0); MEAN CORPUSCULAR HGB CONC 33.2 g/dL (33.0-36.5); MEAN CORPUSCULAR VOLUME 89.4 FL (78-98); MEAN PLATELET VOLUME 8.4 FL (7.4-10.4); PLATELET COUNT 237 X10'3 (140-440); RED BLOOD COUNT 2.62 X10'6 (4.20-5.60); RED CELL DISTRIBUTION WIDTH 14.2 % (11.5-14.5); WHITE BLOOD COUNT 10.8 X10'3 (4.5-11.0)
[2022-05-20] MEDS ORDERED: fentaNYL/PF 50MCG/1 ML 2ML syringe ONE (16:09)
[2022-05-20] MEDS ORDERED: MIDAZolam 1 MG/ML 5ML VIAL ONE (16:09)
--- NOTE | 2022-05-20 17:07 | NUR ---
BLOOD TRANSFUSION STARTED BP 86/37 1 LITER OF NS STARTED ALSO AT 1000CC/HR. ANGIO RN STARTED A SECOND IV. DR. GUTIERREZ CALLED REG STATUS. ORDERED PATIENT TO GO TO ICU. ATTENDING ANESTHESIOLOGIST CALLED AND CICU NOTIFIED .
--- NOTE | 2022-05-20 18:06 | NUR ---
BP STABLE AWAITING ROOM IN CICU. DR WADE HERE TO SEE PATIENT, SHE CALLED DR GOODWIN DISCUSSED CASE.
--- NOTE | 2022-05-20 18:15 | NUR ---
Report given to COMPUTER NUMERICAL CONTROL GRINDERYayo
--- NOTE | 2022-05-20 18:32 | NUR ---
pt received from GI lab, report received from Carole STARK and Anabel RN and questions answered. pt transferred to CICU bed 2013, placed on monitor, and oriented to unit. Pt sitting on bloody linen with large clots from rectum present, pt cleaned up. First unit of blood transfusing through midline IV. NS also infusing per MD's orders. Washburn catheter secured to leg, bag to gravity, draining dark indra urine. Pt is A&O x4, interacts appropriately with staff, is anxious about what is happening but is easily consoled.
--- NOTE | 2022-05-20 18:37 | NUR ---
TRANSFERED PATIENT TO CICU ON MONITOR AND O2 2LNC. LARGE AMOUNT OF BLOOD IN BED. REPORT GIVEN TO PRIMARY RN.
[2022-05-20] MEDS ORDERED: normal saline 1000ml 1,000 ML IVB ONE ×2 (19:20→19:25)
[2022-05-20] MEDS ORDERED: iohexol 350MG/ML 100ml bottle IV ONE (19:35)
--- NOTE | 2022-05-20 20:25 | NUR ---
Dr. Valdez at bedside assessing the pt and placing a central line and arterial line. Line placement went well, sterile technique maintained, all sharps accounted for. Continuing to transfuse PRBCs as ordered, pt's BP responding well. Pt continuing to have large amounts of blood and clots from rectum. Preparing to transport pt to CTA.
[2022-05-20 20:50] LABS: HEMOGLOBIN 7.1 g/dl (12.0-16.0); MEAN CORPUSCULAR HGB CONC 33.2 g/dL (33.0-36.5); MEAN CORPUSCULAR VOLUME 90.2 FL (78-98); MEAN PLATELET VOLUME 8.8 FL (7.4-10.4); PLATELET COUNT 197 X10'3 (140-440); RED BLOOD COUNT 2.36 X10'6 (4.20-5.60); RED CELL DISTRIBUTION WIDTH 14.1 % (11.5-14.5); WHITE BLOOD COUNT 12.5 X10'3 (4.5-11.0)
[2022-05-20 20:55] LABS: HEMATOCRIT 21.2 % (35.0-45.0)
[2022-05-20 20:58] LABS: APTT 31 SECONDS (22-32)
[2022-05-20] MEDS: insulin glargine (Lantus) pen - multi-dose SQ SCH (21:00)
[2022-05-20] MEDS ORDERED: levoFLOXACIN-Levaquin 750MG/D5 150 ML IV STA (21:08)
--- NOTE | 2022-05-20 21:15 | NUR ---
Back from CTA, pt tolerated transport well. Dr. Verduzco and Dr. Valdez reading the CT and preparing to transfer the pt to [facility] for IR services that are not available here after hours an on the weekend at this time. Pt's BP is remaining within parameters and we are continuing to transfuse PRBCs that are ordered.
--- NOTE | 2022-05-20 23:30 | NUR ---
Received room number from [facility], report attempted to be called to them but the did not have a nurse assigned to the patient as of yet. Carlos STARK, [facility] ICU charge will call back as soon as he has a nurse.
--- NOTE | 2022-05-20 23:35 | NUR ---
[facility] arrived at bedside and transferred her over to their gurney and monitor. Report and transfer packets given to them and phone report given to Jake STARK at [facility]. Addendum: 05/21/22 at 0025 by Faviola Kline RN Pt's cell phone and eye glasses were transferred with her.
[2022-05-21] MEDS ORDERED: levoFLOXACIN-Levaquin 750MG/D5 150 ML IV SCH (08:00)
[2022-05-21] MEDS ORDERED: pantoprazole 40MG/NS 100ML BAG 100 ML IV SCH (08:00)
== END 2022-05-20 23:35 | DRG 377 ==
LOC: ER 21:41 → ED HOLD 05-19 04:30 → EEVIPCON 05-19 04:30 → SUR 3N 05-19 17:24 → CICU 2S 05-20 17:53
PROVIDERS: ADMIT Internal Medicine; ATTEND Family Medicine
PROC: 02HV33Z Insertion of Infusion Device into Superior Vena Cava, Percutaneous Approach (ICD-10-PCS; principal; 2022-05-20)
PROC: B548ZZA Ultrasonography of Superior Vena Cava, Guidance (ICD-10-PCS; 2022-05-20)
PROC: 04HY32Z Insertion of Monitoring Device into Lower Artery, Percutaneous Approach (ICD-10-PCS; 2022-05-20)
PROC: 30233N1 Transfusion of Nonautologous Red Blood Cells into Peripheral Vein, Percutaneous Approach (ICD-10-PCS; 2022-05-20)
PROC: B4201ZZ Computerized Tomography (CT Scan) of Abdominal Aorta using Low Osmolar Contrast (ICD-10-PCS; 2022-05-20)
PROC: B4241ZZ Computerized Tomography (CT Scan) of Superior Mesenteric Artery using Low Osmolar Contrast (ICD-10-PCS; 2022-05-20)
PROC: B4281ZZ Computerized Tomography (CT Scan) of Bilateral Renal Arteries using Low Osmolar Contrast (ICD-10-PCS; 2022-05-20)
PROC: B42C1ZZ Computerized Tomography (CT Scan) of Pelvic Arteries using Low Osmolar Contrast (ICD-10-PCS; 2022-05-20)
PROC: B42H1ZZ Computerized Tomography (CT Scan) of Bilateral Lower Extremity Arteries using Low Osmolar Contrast (ICD-10-PCS; 2022-05-20)
PROC: B4211ZZ Computerized Tomography (CT Scan) of Celiac Artery using Low Osmolar Contrast (ICD-10-PCS; 2022-05-20)
DX: K92.2 Gastrointestinal hemorrhage, unspecified (principal); G93.41 Metabolic encephalopathy; J18.9 Pneumonia, unspecified organism; R57.8 Other shock; S42.401A Unspecified fracture of lower end of right humerus, initial encounter for closed fracture; N39.0 Urinary tract infection, site not specified; R44.0 Auditory hallucinations; K92.1 Melena; E11.42 Type 2 diabetes mellitus with diabetic polyneuropathy; F41.9 Anxiety disorder, unspecified; G89.29 Other chronic pain; M54.9 Dorsalgia, unspecified; Z20.822 Contact with and (suspected) exposure to COVID-19; R09.89 Other specified symptoms and signs involving the circulatory and respiratory systems; R11.0 Nausea; I10 Essential (primary) hypertension; I25.10 Atherosclerotic heart disease of native coronary artery without angina pectoris; W18.39XA Other fall on same level, initial encounter; I25.2 Old myocardial infarction; Z82.49 Family history of ischemic heart disease and other diseases of the circulatory system; Z86.73 Personal history of transient ischemic attack (TIA), and cerebral infarction without residual deficits; Z87.891 Personal history of nicotine dependence; Z90.710 Acquired absence of both cervix and uterus; Z95.5 Presence of coronary angioplasty implant and graft; Z88.5 Allergy status to narcotic agent; Z88.8 Allergy status to other drugs, medicaments and biological substances; Z90.49 Acquired absence of other specified parts of digestive tract; Z82.5 Family history of asthma and other chronic lower respiratory diseases; Z83.3 Family history of diabetes mellitus; Z56.0 Unemployment, unspecified; Z79.899 Other long term (current) drug therapy; Y93.89 Activity, other specified; Y92.89 Other specified places as the place of occurrence of the external cause; Y99.8 Other external cause status
CPT/HCPCS: 36410; 36415; 36430; 70450; 71045; 72170; 72192; 73080; 73200; 73560; 74174; 76937; 80053; 81001; 82948; 83036; 83605; 85007; 85025; 85027; 85384; 85610; 85730; 86885; 86900; 86901; 86920; 87040; 87077; 87081; 87088; 87502; 87503; 87635; 93005; 99285; A4333; A4353; A4615; A4620; A6212; A6213; A6449; C1751; G0378; J0696; J1644; J1815; J1956; J2250; J2405; J3010; J3490; J7030; J7040; J7050; P9016; Q9967

== ENCOUNTER 2022-08-02 13:10 | Emergency (ER) | payer MEDICARE, MEDICAID ==
[~2022-08-02] VITALS: Ht 166.4 cm; Wt 76.4 kg
[~2022-08-02 13:10] MED LIST changes: -CARV-49 PO; +CARV12.529 PO; +CYAN500T71 PO; +DESL5TAB45 PO; +HYDR-3964 PO; +INSU100V13 SQ; +INSU100V55 SQ; +ISOS30TA9 PO; -NOVLG SQ; +POLY119P2 PO; +SENN8.6T19 PO; +TRAM50TA2 PO
[2022-08-02 13:54] LABS: BASOPHILS # (AUTO) 0.1 X10'3 (0-0.2); BASOPHILS % (AUTO) 1.4 % (0-1); EOSINOPHILS # (AUTO) 0.1 X10'3 (0-0.9); EOSINOPHILS % (AUTO) 1.4 % (0-6); HEMATOCRIT 34.5 % (35.0-45.0); HEMOGLOBIN 11.5 g/dl (12.0-16.0); LYMPHOCYTES # (AUTO) 2.6 X10'3 (1.1-4.8); LYMPHOCYTES % (AUTO) 31.6 % (21-51); MEAN CORPUSCULAR HEMOGLOBIN 28.6 PG (27.0-31.0); MEAN CORPUSCULAR HGB CONC 33.3 g/dL (33.0-36.5); MEAN PLATELET VOLUME 9.9 FL (7.4-10.4); MONOCYTES # (AUTO) 0.8 X10'3 (0-0.9); MONOCYTES % (AUTO) 9.8 % (2-12); NEUTROPHILS # (AUTO) 4.7 X10'3 (1.8-7.7); NEUTROPHILS % (AUTO) 55.8 % (42-75); PLATELET COUNT 197 X10'3 (140-440); RED BLOOD COUNT 4.01 X10'6 (4.20-5.60); RED CELL DISTRIBUTION WIDTH 14.9 % (11.5-14.5); WHITE BLOOD COUNT 8.3 X10'3 (4.5-11.0)
[2022-08-02] MEDS ORDERED: normal saline 1000ml 1,000 ML IV ONE (14:50)
[2022-08-02 14:54] LABS: ALANINE AMINOTRANSFERASE 15 U/L (12-78); ALBUMIN 3.5 G/DL (3.4-5.0); ALBUMIN/GLOBULIN RATIO 0.8 (1.1-1.5); ALKALINE PHOSPHATASE 102 IU/L (46-116); ANION GAP 13 (8-16); ASPARTATE AMINO TRANSFERASE 17 U/L (10-37); BILIRUBIN,TOTAL 0.3 MG/DL (0.1-1.0); BLOOD UREA NITROGEN 25 MG/DL (7-18); BUN/CREATININE RATIO 24.5 (10.0-20.0); CALCIUM 9.3 MG/DL (8.5-10.1); CHLORIDE 103 MMOL/L (99-107); CREATININE 1.02 MG/DL (0.40-0.90); GLUCOSE 188 MG/DL (70-104); SODIUM 135 MMOL/L (135-145); TOTAL CARBON DIOXIDE 19.3 MMOL/L (24-32); TOTAL PROTEIN 7.7 G/DL (6.4-8.2); eGFR 54 ML/MIN
[2022-08-02 15:02] LABS: MAGNESIUM 2.1 MG/DL (1.5-2.4)
[2022-08-02 16:32] VITALS: BP 125/71
== END 2022-08-02 16:34 | disposition home or self-care (01) ==
LOC: ER 13:11
DX: I95.1 Orthostatic hypotension (principal); I10 Essential (primary) hypertension; E11.9 Type 2 diabetes mellitus without complications; Z88.5 Allergy status to narcotic agent; Z88.8 Allergy status to other drugs, medicaments and biological substances; Z90.49 Acquired absence of other specified parts of digestive tract; Z90.710 Acquired absence of both cervix and uterus; Z56.0 Unemployment, unspecified
CPT/HCPCS: 36415; 71045; 80053; 83036; 83735; 83880; 84484; 85025; 93005; 96360; 99285; J7030

== ENCOUNTER 2022-08-02 20:11 | Emergency (ER) | payer MEDICARE, MEDICAID ==
[~2022-08-02] VITALS: Ht 165.1 cm; Wt 76.4 kg
[2022-08-02 20:14] VITALS: BP 107/58
== END 2022-08-02 22:42 | disposition home or self-care (01) ==
LOC: ER 20:12
DX: I10 Essential (primary) hypertension (principal); E11.42 Type 2 diabetes mellitus with diabetic polyneuropathy; I25.10 Atherosclerotic heart disease of native coronary artery without angina pectoris; I25.2 Old myocardial infarction; G89.29 Other chronic pain; F41.9 Anxiety disorder, unspecified; Z90.49 Acquired absence of other specified parts of digestive tract; Z98.890 Other specified postprocedural states; Z90.710 Acquired absence of both cervix and uterus; Z56.0 Unemployment, unspecified; Z72.89 Other problems related to lifestyle; Z86.73 Personal history of transient ischemic attack (TIA), and cerebral infarction without residual deficits; Z88.8 Allergy status to other drugs, medicaments and biological substances; Z88.5 Allergy status to narcotic agent; Z79.82 Long term (current) use of aspirin; Z79.4 Long term (current) use of insulin; Z79.899 Other long term (current) drug therapy
CPT/HCPCS: 99284

== ENCOUNTER 2023-05-17 09:31 | Outpatient (CLI) | payer MEDICARE, MEDICAID | END 2023-05-17 23:59 | disposition home or self-care (01) | LOC: RAD 09:31 | PROVIDERS: ATTEND Family Medicine | DX: E05.90 Thyrotoxicosis, unspecified without thyrotoxic crisis or storm (principal) | CPT/HCPCS: 78014; A9516 ==

== ENCOUNTER 2023-08-02 10:13 | Emergency (ER) | payer MEDICARE, MEDICAID ==
[~2023-08-02] VITALS: Ht 165.1 cm; Wt 74.1 kg
[2023-08-02 10:42] VITALS: BP 149/74; PULSE 65; RESP 16; TEMP 98.6; O2SAT 97
[2023-08-02] MEDS ORDERED: NAPR-56 PO (13:55)
== END 2023-08-02 14:11 | disposition home or self-care (01) ==
LOC: ER 10:13
DX: S40.011A Contusion of right shoulder, initial encounter (principal); S09.90XA Unspecified injury of head, initial encounter; I25.10 Atherosclerotic heart disease of native coronary artery without angina pectoris; Z86.73 Personal history of transient ischemic attack (TIA), and cerebral infarction without residual deficits; I10 Essential (primary) hypertension; I25.2 Old myocardial infarction; E11.42 Type 2 diabetes mellitus with diabetic polyneuropathy; G89.29 Other chronic pain; M54.9 Dorsalgia, unspecified; F41.9 Anxiety disorder, unspecified; Z98.890 Other specified postprocedural states; Z90.49 Acquired absence of other specified parts of digestive tract; Z90.710 Acquired absence of both cervix and uterus; Z88.8 Allergy status to other drugs, medicaments and biological substances; X58.XXXA Exposure to other specified factors, initial encounter; Y93.89 Activity, other specified; Y92.89 Other specified places as the place of occurrence of the external cause; Y99.8 Other external cause status
CPT/HCPCS: 70450; 73030; 73110; 73502; 99284

== ENCOUNTER 2023-11-08 16:11 | Outpatient (CLI) | payer BC, MEDICAID ==
[~2023-11-08 16:11] MED LIST changes: -DESL5TAB45 PO; -LOSA25TA41 PO; -POLY119P2 PO; +iohexol 350MG/ML 100ml bottle IV ONE
[2023-11-08 16:54] LABS: ALANINE AMINOTRANSFERASE 24 U/L (12-78); ALBUMIN 3.9 G/DL (3.4-5.0); ALKALINE PHOSPHATASE 75 IU/L (46-116); ANION GAP 4 (8-16); ASPARTATE AMINO TRANSFERASE 15 U/L (10-37); BILIRUBIN,TOTAL 0.5 MG/DL (0.1-1.0); BLOOD UREA NITROGEN 16 MG/DL (7-18); BUN/CREATININE RATIO 17.2 (10.0-20.0); CALCIUM 9.2 MG/DL (8.5-10.1); CHLORIDE 104 MMOL/L (99-107); CREATININE 0.93 MG/DL (0.40-0.90); GLUCOSE 275 MG/DL (70-104); POTASSIUM 4.9 MMOL/L (3.5-5.1); SODIUM 138 MMOL/L (135-145); TOTAL CARBON DIOXIDE 30.2 MMOL/L (24-32); TOTAL PROTEIN 7.8 G/DL (6.4-8.2); eGFR 60 ML/MIN
== END 2023-11-08 23:59 | disposition home or self-care (01) ==
LOC: LAB 16:11
PROVIDERS: ATTEND Family Medicine
DX: R34 Anuria and oliguria (principal)
CPT/HCPCS: 36415; 80053; A4615; A6213; A6223; A6250; A6258; A6449; Q9967